=== PATIENT | female | born 1960 | race Caucasian/White ===

== ENCOUNTER → 2017-08-11 12:22 | Outpatient (CLI) | payer OTHER, SELFPAY ==
--- NOTE | 2017-08-11 12:25 | HPBD_ITS ---
STUDY: DUAL ENERGY X-RAY ABSORPTIOMETRY / DXA REASON FOR EXAM: Female, 57 years old. The patient is postmenopausal. Loss of height. Use of steroid inhaler. TECHNIQUE: Bone Mineral Density (BMD) measurements of lumbar spine and bilateral hips were obtained. COMPARISON: None. FINDINGS: Lumbar Spine (L1-L4): g/cm2 (0.856) / T-score (-2.6) / Z-score (-1.5) Findings are suggestive of osteoporosis with a high fracture risk. Left Femur Total: g/cm2 (0.778) / T-score (-1.8) / Z-score (-1.0) Left Femoral Neck: g/cm2 (0.695) / T-score (-2.5) / Z-score (-1.3) Right Femur Total: g/cm2 (0.769) / T-score (-1.9) / Z-score (-1.1) Right Femoral Neck: g/cm2 (0.736) / T-score (-2.2) / Z-score (-1.0) HPBD/Dexa Bone Density Study (HP) IMPRESSION: The patient is considered osteoporotic as outlined below according to World Mehdi Organization (WHO) criteria with a high fracture risk. Reference Information: The T-score is the number of standard deviations above or below the standard which is normal for young adults at their peak bone mineral density. The World Health Organization (WHO) interprets the T-scores as follows: Above -1 Normal bone density Between -1 and -2.5 Osteopenia Equal to / or below -2.5 Osteoporosis As a practical clinical guideline, osteopenia may be graded as follows: Mild -1 through -1.5 Moderate -1.6 through -2.0 Severe -2.1 through -2.4 The Z-score is the number of standard deviations above or below age-matched controls. A Z-score of less than -1.5 would be considered abnormal. References: 1. NIH Osteoporosis and Related Bone Diseases http://www.osteo.org 2. International Society for Clinical Densitometry http://www.iscd.org 3. National Osteoporosis Foundation http://www.nof.org Electronically Signed: Jax Allen MD at 13:50 EST Tel [phone], Service support ,
--- NOTE | 2017-08-11 12:25 | HPBI_ITS ---
MAMMOGRAPHY - BILATERAL SCREENING REASON FOR EXAM: Female, 57 years old. Routine annual screening examination. PERTINENT HISTORY: Non-contributory. TECHNIQUE: Digital bilateral breast natacha (3D mammographic acquisition) in the CC and MLO projections. 2-D mediolateral oblique (MLO) and craniocaudad (CC) views of both breasts were obtained. CAD: Full Field Digital Mammography with Computer Added Detection was performed. COMPARISON: Comparison is made with prior occipital examination dated April 13, 2014. FINDINGS: Breast Composition: The breasts are heterogeneously dense, which may obscure small masses. There are no dominant masses or suspicious calcifications. No other significant abnormalities are identified. There has been no significant change since the prior study. HPBI/SCREENING MAMM (CAD), BILAT IMPRESSION: Stable bilateral screening mammogram. Yearly follow-up mammogram recommended. (A) ASSESSMENT CATEGORY: BIRADS Category 1: Negative. A letter regarding these results will be sent to the patient by the facility within 30 days. Approximately 10% of breast cancers are not detected by mammography. A normal mammogram should not delay biopsy of a clinically suspicious abnormality. [id number] Electronically Signed: Jax Allen MD at 10:13 EST Tel [phone], Service support ,
== END ==
PROVIDERS: Family Provider Nurse Practitioner; PCP Nurse Practitioner; Visit Provider Nurse Practitioner
DX: Z12.31 Encounter for screening mammogram for malignant neoplasm of breast (principal); Z78.0 Asymptomatic menopausal state
CPT/HCPCS: 77063; 77067; 77080

== ENCOUNTER → 2017-08-24 16:13 | Outpatient (CLI) | payer OTHER, SELFPAY ==
--- NOTE | 2017-08-24 16:23 | RAD_ITS ---
STUDY: X-RAY CHEST REASON FOR EXAM: Female, 57 years old. Cough TECHNIQUE: PA and lateral views of the chest. COMPARISON: None. FINDINGS: The lungs are clear and expanded. There is no demonstrated pleural abnormality. Normal size heart. Normal mediastinum and nicole. Normal visualized pulmonary arteries. Mild atherosclerosis of the aortic arch noted. Normal visualized thoracic spine. Normal visualized ribs, clavicles, and shoulders. There is no demonstrated abnormality of the visualized soft tissue structures of the upper abdomen. RAD/Chest PA and Lateral IMPRESSION: No acute infiltrate. Mild hyperinflation. Mild atherosclerosis of the aorta noted. Electronically Signed: Ayesha Calderon MD at 17:18 EST Tel , Service support ,
== END ==
PROVIDERS: Family Provider Nurse Practitioner; PCP Nurse Practitioner; Visit Provider Nurse Practitioner
DX: R05 Cough (principal)
CPT/HCPCS: 71046

== ENCOUNTER → 2017-08-31 18:59 | Outpatient (CLI) | payer OTHER, SELFPAY ==
--- NOTE | 2017-08-31 19:08 | CT_ITS ---
STUDY: CTA CHEST REASON FOR EXAM: Female, 57 years old. PE, RIGHT SIDED CHEST PAIN, COUGH X 2 WEEKS RADIATION DOSAGE (If Supplied By Facility): CTDIvol = ( 13.02 ) mGy, DLP = ( 534.80 ) mGycm TECHNIQUE: The examination was performed with the intravenous administration of 75 ml of Isovue 370 contrast material. Post-processing of the angiographic images was performed, with multiplanar reformation and 3D reconstruction. Individualized dose optimization techniques were used for this CT. COMPARISON: None. FINDINGS: Normal enhancement of the main pulmonary artery and right and left pulmonary arteries. Normal enhancement of the bilateral peripheral pulmonary arteries. There is no demonstrated pulmonary embolism. There is atherosclerotic tortuosity of the aortic arch and descending thoracic aorta. There is no demonstrated aortic dissection. Normal heart and pericardium. Normal mediastinum. Normal hilar regions. Normal visualized trachea and bronchi. Groundglass infiltrates noted diffusely throughout the left lung. There is no pneumothorax. Normal pulmonary parenchyma. Normal pleura. Normal chest wall structures. There are degenerative changes of thoracic spine. Normal visualized upper abdomen. CT/CTA Chest W/WO Contrast IMPRESSION: No demonstrated pulmonary embolism or arterial dissection. Left pneumonia. Electronically Signed: Osman Nunez MD at 20:21 EST , Service support ,
== END ==
PROVIDERS: Family Provider Nurse Practitioner; PCP Nurse Practitioner; Visit Provider Nurse Practitioner
DX: R07.9 Chest pain, unspecified (principal)
CPT/HCPCS: 71275; Q9967

== ENCOUNTER 2017-09-01 13:54 | Inpatient (IN) | payer OTHER, SELFPAY ==
[2017-09-01] VITALS (9 sets, daily range): BP systolic 132–151; BP diastolic 67–95; PULSE 77–89; RESP 18–24; TEMP 36.6–36.9; O2SAT 94–96; BMI 34.9; BMI 33.7
--- NOTE | 2017-09-01 15:04 | EKG12_ITS ---
Test Reason : SOB Blood Pressure : / mmHG Vent. Rate : 081 BPM Atrial Rate : 081 BPM P-R Int : 144 ms QRS Dur : 090 ms QT Int : 352 ms P-R-T Axes : 054 048 059 degrees QTc Int : 408 ms Normal sinus rhythm Normal ECG Confirmed by TAY DURAN MD ([id number]), associate entertainment editor TONY HINTON ([id number] on 09/02/2017 2:27:56 PM Referred By: DOMINIC
--- NOTE | 2017-09-01 15:13 | RAD_ITS ---
STUDY: X-RAY CHEST REASON FOR EXAM: Female, 57 years old. Cough. History of COPD. TECHNIQUE: PA and lateral views of the chest. COMPARISON: Comparison is made with prior CT scan of chest dated August 31, 2017. FINDINGS: EKG electrodes are seen. Right middle lobe infiltrate with volume loss. Blunting of the left costophrenic angle. Normal size heart. Normal mediastinum and nicole. Normal visualized pulmonary arteries. There is atherosclerotic calcification of the aortic arch with tortuosity. Normal visualized thoracic spine. Normal visualized ribs, clavicles, and shoulders. There is no demonstrated abnormality of the visualized soft tissue structures of the upper abdomen. RAD/Chest PA and Lateral IMPRESSION: Right middle lobe infiltrate with volume loss of the right middle lobe. Electronically Signed: Jax Allen MD at 15:45 EST Tel [phone], Service support ,
[2017-09-01 15:15] LABS: Absolute Lymphocyte Count 1.21 X10^3/ul (0.83-4.51); Absolute Neutrophil Count 16.2 X10^3/uL (2.0-7.7); Basophil# 0.02 X10^3/uL; Basophil% 0.1 % (0-1); Eosinophil# 0.01 X10^3/uL; Eosinophils% 0.1 % (0-5); Hematocrit 37.1 % (37-47); Hemoglobin 12.8 g/dl (12.0-15.0); Lymphocyte # 1.21 X10^3/ul (4.0); Lymphocyte % 6.5 % (19-41); Mean Corp Hgb Conc 34.5 g/gl (32-36); Mean Corpuscular Hgb 33.8 pg (27.0-32.0); Mean Corpuscular Volume 97.9 fL (81-99); Monocyte# 0.83 X10^3/uL; Monocyte% 4.5 % (0-10); Neutrophil # 16.19 X10^3/uL (2.7-7.7); Neutrophil % 87.1 % (47-70); Platelet Count 456 K/mm3 (150-450); RBC Distribution Width SD 45.2 fl (35.1-43.9); Red Blood Count 3.79 M/mm3 (4.2-5.4); White Blood Count 18.6 K/mm3 (4.4-11.0)
[2017-09-01 15:18] LABS: POSITIVE COUNT NO; POSITIVE DIFFERENTIAL NO; POSITIVE MORPHOLOGY NO
[2017-09-01 15:20] LABS: Anion Gap 10 (5-15); BUN 9 mg/dL (7-18); BUN/Creat Ratio 12.8 RATIO (10-20); Calcium,Total 8.9 mg/dL (8.5-10.1); Chloride 94 mmol/L (98-107); EST Glomerular Filtration Rate 91 mL/min (>60); Est Glom Filt Rate - Afr Amer 110 mL/min (>60); Estimated Creatinine Clearance 69.29 ml/min; Glucose 119 mg/dL (74-106); Potassium 4.3 mmol/L (3.5-5.1); Sodium Level 130 mmol/L (136-145)
--- NOTE | 2017-09-01 16:08 | PCM.HP.STD ---
Problem List (1) COPD (chronic obstructive pulmonary disease) Status: Chronic Qualifiers: Emphysema type: unspecified (2) Acute bronchitis with COPD Status: Acute (3) Pneumonia Status: Acute Qualifiers: Pneumonia type: due to unspecified organism Laterality: bilateral Lung location: unspecified part of lung Qualified Code(s): J18.9 - Pneumonia, unspecified organism (4) Tobacco use Status: Chronic (5) HTN (hypertension) Status: Chronic Qualifiers: Hypertension type: essential hypertension Qualified Code(s): I10 - Essential (primary) hypertension (6) Hypothyroidism Status: Chronic Qualifiers: Hypothyroidism type: unspecified Qualified Code(s): E03.9 - Hypothyroidism, unspecified (7) Obesity (BMI 30.0-34.9) Status: Chronic (8) Thyroglossal duct cyst Status: Chronic History of Present Illness Date of Admission: 09/01/17 Chief Complaint: Dyspnea, wheezing, cough The patient is a 57 y/o F w/ PMHx: Chronic COPD, Tobacco use 1/2-3/4 ppd since age 16, notes she quit 08/22/17, HTN, Hypothyroidism w/ Hx Thyroglossal duct cyst s/p resection, Obesity who presents to the [facility] ED on 09/01/17 with history of mildly productive cough, ongoing w/ severe musculoskeletal associated chest and back discomfort, worse with coughing with PCP evaluation with initially ~ 2 weeks prior normal appearing CXR; however, she had ongoing sxs prompting CTPA which was notable for L sided PNA but despite levaquin 10 day course as well as steroid taper she noted ongoing sxs with referral per her PCP to the ED. She notes initially with onset of her illness she had vague nausea and transient loose stool but this resolved. She denies any current fevers or chills. In the ED work-up included T 97.9, BP 132/77, RR 18, 94% on RA, CBC w/ WBC 18.6, Hgb 12.8, Plts 456 with L shift, BMP w/ Na 130, Chl 94, glucose 119, CXR with no RML infiltrate. In the ED patient administered azithromycin, rocephin, NS. Past Medical History Past Medical History (Chronic Problems): Chronic Problems (This Medical Record has been edited. Action required.) COPD (chronic obstructive pulmonary disease) (Chronic) Tobacco use (Chronic) HTN (hypertension) (Chronic) Hypothyroidism (Chronic) Obesity (BMI 30.0-34.9) (Chronic) Thyroglossal duct cyst (Chronic) Allergies amlodipine Allergy (Verified 09/01/17 13:59) Swelling hydrochlorothiazide Allergy (Verified 09/01/17 13:59) Other lisinopril Allergy (Verified 09/01/17 13:59) Other Penicillins Allergy (Verified 09/01/17 13:59) Rash Home Medications: Ambulatory Orders Medication Instructions Recorded Albuterol Aerosols [Ventolin 2.5 mg INHALATION Q4HWA.RT 09/01/17 Aerosols] Albuterol IH (ProAir) [Proair Hfa 2 puff INHALATION Q4H PRN PRN 09/01/17 (SP)Vent Pts] Benzonatate 200 mg PO TID 09/01/17 Budesonide/Formoterol 160/4.5 2 puff INHALATION BID 09/01/17 [Symbicort 160/4.5 Mcg Inhaler (SP)] BusPIRone [Buspar] 10 mg PO BID 09/01/17 Clonidine HCl [Catapres] 0.1 mg PO BID 09/01/17 Diltiazem HCl [Cartia Xt] 180 mg PO DAILY 09/01/17 Fish Oil/Dha/Epa [Fish Oil 1,200 1 each PO DAILY 09/01/17 mg Fish Oil] Guaifenesin [Mucinex] 600 mg PO BID 09/01/17 Ipratropium [place] 1 spray NS PRN PRN 09/01/17 Levothyroxine [Synthroid] 125 mcg PO DAILY 09/01/17 Losartan Potassium [Cozaar] 100 mg PO DAILY 09/01/17 Prednisone 20 mg PO DAILY 09/01/17 Venlafaxine HCl [Effexor Xr] 75 mg PO DAILY 09/01/17 Surgical History: - - , Hiatal hernia repair, thyroglossal duct resection. 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 Tobacco Use: Cigarettes Alcohol: Occasional Drugs: None - *Family History Maternal History Items: - - Mother with PMHx HTN, CVA, PAD. Paternal History Items: - - Father with PMHx DM, Esophageal CA. Review of Systems Constitutional: Reports: Anorexia, Malaise, Weakness, Fatigue. Denies: Chills, Fever, Weight Change HEENT: Denies: Head Aches, Sinus Congestion, Sinus Drainage Cardiovascular: Reports: Chest Pain. Denies: Palpitations Respiratory: Reports: Cough, Shortness of Breath, Shortness of breath at rest, Shortness of breath upon exertion, Sputum production, Wheezing Gastrointestinal: Reports: Diarrhea, Nausea. Denies: Abdominal Pain, Vomiting Genitourinary: Denies: Dysuria Musculoskeletal: Reports: Back Pain. Denies: Joint Pain, Joint Tenderness Skin: Denies: Rash, Wounds Neurological: Denies: Numbness, Tingling, Focal weakness Psychiatric: Denies: Anxiety, Depression, Homicidal Ideations, Suicidal Ideations Hematologic/ Lymphatic: Denies: Easy Bruising, Easy Bleeding VTE Information - Inpt Only VTE Present on Admission: No VTE Mechan Device Prophylaxis: SCD's VTE Pharm Prophylaxis ordered?: Yes Patient Problems: Active and Suspected Problems (This Medical Record has been edited. Action required.) Acute bronchitis with COPD (Acute) Pneumonia (Acute) Subjective: Seated upright in the ED bed, fatigued appearance, harsh voice. Objective: Physical Examination: General: awake, alert, oriented x 3 and cooperative, seated upright in the ED bed in no apparent distress, fatigued, onset back pain with movement. Skin: normal color, turgor, no icterus, cyanosis. HEENT: AT/NC, EOMI, PERRLA, dry MM, no carotid bruits or JVD noted. Lungs: Diminished BS throughout, > bases, mildly coarse BL bases, occasional soft end expiratory wheezing, poor effort secondary to MS pain. Heart: Regular rate and rhythm; no gallop, rub audible. Abdomen: soft, obese, NTTP, ND, normal BS, no HSM. Extremities: no cyanosis, clubbing, or edema. Neurological: patient awake, alert, oriented x 3; cognitive function intact; pupils equally reactive to light and accomodation; cranial nerves II-XII grossly normal, moving all 4 extremities, no focal deficits, strength moderately to severely globally decreased secondary to acute presentation. Psychiatric: affect appears fatigued, no acute evidence of depressive or anxiety feelings. - Physical Exam Vital Signs Temp Pulse Resp BP Pulse Ox 97.9 F 80 24 H 135/95 H 96 09/01/17 13:55 09/01/17 15:09 09/01/17 15:09 09/01/17 15:09 09/01/17 15:09 Oxygen Flow Rate 1 Oxygen Delivery Method Room Air Weight: 191 lb Body Mass Index (BMI) 34.9 Laboratory Tests Past 24 Hrs 09/01/17 09/01/17 14:02 14:02 WBC 18.6 H RBC 3.79 L Hgb 12.8 Hct 37.1 MCV 97.9 MCH 33.8 H MCHC 34.5 RDW 13.0 RDW Differential 45.2 H Plt Count 456 H MPV 8.0 Immature Gran % (Auto) 1.700 H Neut % (Auto) 87.1 H Lymph % (Auto) 6.5 L Reeves % (Auto) 4.5 Eos % (Auto) 0.1 Baso % (Auto) 0.1 Absolute Neuts (auto) 16.2 H Absolute Lymphs (auto) 1.21 Total Counted Not Reportable Sodium 130 L Potassium 4.3 Chloride 94 L Carbon Dioxide 26.0 Anion Gap 10 BUN 9 Creatinine 0.70 Estim Creat Clear Calc 69.29 Est GFR (MDRD) Af Amer 110 Est GFR (MDRD) Non-Af 91 BUN/Creatinine Ratio 12.8 Glucose 119 H Calcium 8.9 Assessment/Plan Active and Suspected Problems (This Medical Record has been edited. Action required.) Acute bronchitis with COPD (Acute) Pneumonia (Acute) The patient is a 57 y/o F w/ PMHx: Chronic COPD, Tobacco use, HTN, Hypothyroidism w/ Hx Thyroglossal duct cyst s/p resection, Obesity who presents to the [facility] ED on 09/01/17 with history of recent PNA, COPD exacerbation treatment with ongoing sxs and worsened CXR. (1) Acute on chronic COPD exacerbation with Pneumonia, Failed Outpatient therapy: Recent CTPA with L sided PNA and now current ED CXR w/ chronic changes and RML infiltrates, CBC on admission w/ WBC 18.6 with L shift but recent steroid taper, afebrile. Will admit to MS, maintain on oxygen with wean as tolerated to room air, continue ATC duonebs, PRN albuterol, IV azithromycin and rocephin, IV methylprednisolone with prednisone transition once appropriate, HOB, IS parameters with requested urine antigens, respiratory panel and sputum cultures. Will need oxygenation testing once appropriate for discharge. (2) Hypertension: Continue home regimen including diltiazem, clonidine, losartan, PRN hydralazine. (3) Hypothyroidism: Continue home synthroid regimen, s/p thyroglossal duct resection. (4) Tobacco Abuse: Encouraged cessation, inpatient consultation per RT, NR if desired. (5) Anxiety and Depression: Maintain on home regimen buspar and effexor. (6) GERD: Famotidine. (7) DVT Prophylaxis: SCDs, lovenox. Code Visit Inpatient E&M: 88281 Init Hosp L3
--- NOTE | 2017-09-01 16:11 | HP.PCM_ITS ---
Problem List (1) COPD (chronic obstructive pulmonary disease) Status: Chronic Qualifiers: Emphysema type: unspecified (2) Acute bronchitis with COPD Status: Acute (3) Pneumonia Status: Acute Qualifiers: Pneumonia type: due to unspecified organism Laterality: bilateral Lung location: unspecified part of lung Qualified Code(s): J18.9 - Pneumonia, unspecified organism (4) Tobacco use Status: Chronic (5) HTN (hypertension) Status: Chronic Qualifiers: Hypertension type: essential hypertension Qualified Code(s): I10 - Essential (primary) hypertension (6) Hypothyroidism Status: Chronic Qualifiers: Hypothyroidism type: unspecified Qualified Code(s): E03.9 - Hypothyroidism , unspecified (7) Obesity (BMI 30.0-34.9) Status: Chronic (8) Thyroglossal duct cyst Status: Chronic History of Present Illness Date of Admission: 09/01/17 Chief Complaint: Dyspnea, wheezing, cough The patient is a 57 y/o F w/ PMHx: Chronic COPD, Tobacco use 1/2-3/4 ppd since age 16, notes she quit 08/22/17, HTN, Hypothyroidism w/ Hx Thyroglossal duct cyst s/p resection, Obesity who presents to the [facility] ED on 09/01/17 with history of mildly productive cough, ongoing w/ severe musculoskeletal associated chest and back discomfort, worse with coughing with PCP evaluation with initially ~ 2 weeks prior normal appearing CXR; however, she had ongoing sxs prompting CTPA which was notable for L sided PNA but despite levaquin 10 day course as well as steroid taper she noted ongoing sxs with referral per her PCP to the ED. She notes initially with onset of her illness she had vague nausea and transient loose stool but this resolved. She denies any current fevers or chills. In the ED work-up included T 97.9, BP 132/77, RR 18, 94% on RA, CBC w/ WBC 18.6, Hgb 12.8, Plts 456 with L shift, BMP w/ Na 130, Chl 94, glucose 119, CXR with no RML infiltrate. In the ED patient administered azithromycin, rocephin, NS. Past Medical History Past Medical History (Chronic Problems): Chronic Problems (This Medical Record has been edited. Action required.) COPD (chronic obstructive pulmonary disease) (Chronic) Tobacco use (Chronic) HTN (hypertension) (Chronic) Hypothyroidism (Chronic) Obesity (BMI 30.0-34.9) (Chronic) Thyroglossal duct cyst (Chronic) Allergies amlodipine Allergy (Verified 09/01/17 13:59) Swelling hydrochlorothiazide Allergy (Verified 09/01/17 13:59) Other lisinopril Allergy (Verified 09/01/17 13:59) Other Penicillins Allergy (Verified 09/01/17 13:59) Rash Home Medications: Ambulatory Orders Medication Instructions Recorded Albuterol Aerosols [Ventolin 2.5 mg INHALATION Q4HWA.RT 09/01/17 Aerosols] Albuterol IH (ProAir) [Proair Hfa 2 puff INHALATION Q4H PRN PRN 09/01/17 (SP)Vent Pts] Benzonatate 200 mg PO TID 09/01/17 Budesonide/Formoterol 160/4.5 2 puff INHALATION BID 09/01/17 [Symbicort 160/4.5 Mcg Inhaler (SP)] BusPIRone [Buspar] 10 mg PO BID 09/01/17 Clonidine HCl [Catapres] 0.1 mg PO BID 09/01/17 Diltiazem HCl [Cartia Xt] 180 mg PO DAILY 09/01/17 Fish Oil/Dha/Epa [Fish Oil 1,200 1 each PO DAILY 09/01/17 mg Fish Oil] Guaifenesin [Mucinex] 600 mg PO BID 09/01/17 Ipratropium [place] 1 spray NS PRN PRN 09/01/17 Levothyroxine [Synthroid] 125 mcg PO DAILY 09/01/17 Losartan Potassium [Cozaar] 100 mg PO DAILY 09/01/17 Prednisone 20 mg PO DAILY 09/01/17 Venlafaxine HCl [Effexor Xr] 75 mg PO DAILY 09/01/17 Surgical History: - - , Hiatal hernia repair, thyroglossal duct resection. 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 Tobacco Use: Cigarettes Alcohol: Occasional Drugs: None - *Family History Maternal History Items: - - Mother with PMHx HTN, CVA, PAD. Paternal History Items: - - Father with PMHx DM, Esophageal CA. Review of Systems Constitutional: Reports: Anorexia, Malaise, Weakness, Fatigue. Denies: Chills, Fever, Weight Change HEENT: Denies: Head Aches, Sinus Congestion, Sinus Drainage Cardiovascular: Reports: Chest Pain. Denies: Palpitations Respiratory: Reports: Cough, Shortness of Breath, Shortness of breath at rest, Shortness of breath upon exertion, Sputum production, Wheezing Gastrointestinal: Reports: Diarrhea, Nausea. Denies: Abdominal Pain, Vomiting Genitourinary: Denies: Dysuria Musculoskeletal: Reports: Back Pain. Denies: Joint Pain, Joint Tenderness Skin: Denies: Rash, Wounds Neurological: Denies: Numbness, Tingling, Focal weakness Psychiatric: Denies: Anxiety, Depression, Homicidal Ideations, Suicidal Ideations Hematologic/ Lymphatic: Denies: Easy Bruising, Easy Bleeding VTE Information - Inpt Only VTE Present on Admission: No VTE Mechan Device Prophylaxis: SCD's VTE Pharm Prophylaxis ordered?: Yes Patient Problems: Active and Suspected Problems (This Medical Record has been edited. Action required.) Acute bronchitis with COPD (Acute) Pneumonia (Acute) Subjective: Seated upright in the ED bed, fatigued appearance, harsh voice. Objective: Physical Examination: General: awake, alert, oriented x 3 and cooperative, seated upright in the ED bed in no apparent distress, fatigued, onset back pain with movement. Skin: normal color, turgor, no icterus, cyanosis. HEENT: AT/NC, EOMI, PERRLA, dry MM, no carotid bruits or JVD noted. Lungs: Diminished BS throughout, > bases, mildly coarse BL bases, occasional soft end expiratory wheezing, poor effort secondary to MS pain. Heart: Regular rate and rhythm; no gallop, rub audible. Abdomen: soft, obese, NTTP, ND, normal BS, no HSM. Extremities: no cyanosis, clubbing, or edema. Neurological: patient awake, alert, oriented x 3; cognitive function intact; pupils equally reactive to light and accomodation; cranial nerves II-XII grossly normal, moving all 4 extremities, no focal deficits, strength moderately to severely globally decreased secondary to acute presentation. Psychiatric: affect appears fatigued, no acute evidence of depressive or anxiety feelings. - Physical Exam Vital Signs Temp Pulse Resp BP Pulse Ox 97.9 F 80 24 H 135/95 H 96 09/01/17 13:55 09/01/17 15:09 09/01/17 15:09 09/01/17 15:09 09/01/17 15:09 Oxygen Flow Rate 1 Oxygen Delivery Method Room Air Weight: 191 lb Body Mass Index (BMI) 34.9 Laboratory Tests Past 24 Hrs 09/01/17 09/01/17 14:02 14:02 WBC 18.6 H RBC 3.79 L Hgb 12.8 Hct 37.1 MCV 97.9 MCH 33.8 H MCHC 34.5 RDW 13.0 RDW Differential 45.2 H Plt Count 456 H MPV 8.0 Immature Gran % (Auto) 1.700 H Neut % (Auto) 87.1 H Lymph % (Auto) 6.5 L [place] % (Auto) 4.5 Eos % (Auto) 0.1 Baso % (Auto) 0.1 Absolute Neuts (auto) 16.2 H Absolute Lymphs (auto) 1.21 Total Counted Not Reportable Sodium 130 L Potassium 4.3 Chloride 94 L Carbon Dioxide 26.0 Anion Gap 10 BUN 9 Creatinine 0.70 Estim Creat Clear Calc 69.29 Est GFR (MDRD) Af Amer 110 Est GFR (MDRD) Non-Af 91 BUN/Creatinine Ratio 12.8 Glucose 119 H Calcium 8.9 Assessment/Plan Active and Suspected Problems (This Medical Record has been edited. Action required.) Acute bronchitis with COPD (Acute) Pneumonia (Acute) The patient is a 57 y/o F w/ PMHx: Chronic COPD, Tobacco use, HTN, Hypothyroidism w/ Hx Thyroglossal duct cyst s/p resection, Obesity who presents to the [facility] ED on 09/01/17 with history of recent PNA, COPD exacerbation treatment with ongoing sxs and worsened CXR. (1) Acute on chronic COPD exacerbation with Pneumonia, Failed Outpatient therapy : Recent CTPA with L sided PNA and now current ED CXR w/ chronic changes and RML infiltrates, CBC on admission w/ WBC 18.6 with L shift but recent steroid taper, afebrile. Will admit to MS, maintain on oxygen with wean as tolerated to room air, continue ATC duonebs, PRN albuterol, IV azithromycin and rocephin, IV methylprednisolone with prednisone transition once appropriate, HOB, IS parameters with requested urine antigens, respiratory panel and sputum cultures. Will need oxygenation testing once appropriate for discharge. (2) Hypertension: Continue home regimen including diltiazem, clonidine, losartan , PRN hydralazine. (3) Hypothyroidism: Continue home synthroid regimen, s/p thyroglossal duct resection. (4) Tobacco Abuse: Encouraged cessation, inpatient consultation per RT, NR if desired. (5) Anxiety and Depression: Maintain on home regimen buspar and effexor. (6) GERD: Famotidine. (7) DVT Prophylaxis: SCDs, lovenox. Code Visit Inpatient E&M: 77306 Init Hosp L3
--- NOTE | 2017-09-01 16:13 | ED.VISSUMM ---
- ER Visit Summary Date of Service: 09/01/17 Chief Complaint: Shortness of breath History of Present Illness: The patient is a 57 F presents with shortness of breath. She has had a cough and shortness of breath for about 2 weeks. She had fever and diarrhea for 3 days with the initial illness but this has resolved and she has had no recent diarrhea or fever. She reports nausea but no actual emesis. She was seen by her primary care rider when the illness initially began. She had a normal chest x-ray but was treated with Levaquin and a steroid taper. She states she initially seemed to be improving but then her symptoms again began worsening and she developed sharp right-sided chest pain and lower back pain which is worse with coughing. A CTA of the chest was obtained yesterday which showed a groundglass infiltrates on the left. She was seen in the office today and was complaining of significant pain and nausea so was sent to the ER for evaluation. Physical Examination: Afebrile vitals are normal Patient appears to be in pain Heart is regular rate and rhythm Normal respiratory rate no retractions or increased work of breathing she does have some scattered expiratory wheezes Abdomen soft Test Results: EKG shows normal sinus rhythm at a rate of 81. Laboratory studies notable for white blood cell count of 18.6 and platelets of 456. Chest x-ray shows right middle lobe infiltrate. Emergency Department Course and Treatment: Chest x-ray shows interval development of right-sided infiltrate despite antibiotics. The patient also has a significant leukocytosis some of which may be attributable to steroids. Although the patient is not hypoxic tachycardic or febrile given worsening symptoms and new infiltrate on chest x-ray despite antibiotic therapy she has failed outpatient treatment and I believe would benefit from hospitalization with IV antibiotics. Treated with IV Rocephin and azithromycin discussed with hospitalist and admitted. Treatment Plan: [] Disposition: Admit Impression: Community acquired pneumonia, failed outpatient treatment This note was generated with [employer] dictation software. It may contain incorrect words, spelling, and punctuation that were not noted in review of the chart prior to signing ED Disposition - Plan for ED Patient: Chief Complaint: General Illness Referrals: Sherri Ward [Primary Care Provider] -
[2017-09-01] MEDS: HYDROcodone Bitartrate/Apap 5/325 Tablet PO (16:16)
[2017-09-01] MEDS: 0.9% Normal Saline 1,000 ML 1000 ML IV (16:16)
--- NOTE | 2017-09-01 16:58 | NURSING ---
SECOND ATTEMPT TO CALL PHARMACY FOR ATB. [facility] CHARGE REPORTS READY FOR PATIENT, THEY WILL START ON FLOOR.
[2017-09-01] MEDS: Ceftriaxone 1 GM/50 mL Premix x1 IV (17:10)
[2017-09-01 18:27] LABS: Magnesium 2.3 mg/dL (1.6-2.6)
[2017-09-01] MEDS: oxyCODONE 5 MG Tablet PO ×2 (18:30→22:31)
[2017-09-01] MEDS: Albuterol 2.5 MG/3 ML VIAL.NEB. INHALATION (20:08)
[2017-09-01] MEDS: cloNIDine HCl 0.1 MG Tablet PO (21:54)
[2017-09-01] MEDS: 0.9% Normal Saline 1,000 ML 125 ML IV (21:54)
[2017-09-01] MEDS: Famotidine 20 MG Tablet PO (21:54)
[2017-09-01] MEDS: guaiFENesin 1,200 MG Tablet 1200 MG PO (21:55)
[2017-09-02] VITALS (10 sets, daily range): BP systolic 134–163; BP diastolic 72–91; PULSE 68–108; RESP 14–18; TEMP 36.3–36.9; O2SAT 92–96
[2017-09-02] MEDS: Ipratropium/Albuterol Sulfate 3 ML AMPUL.NEB INHALATION ×4 (03:35→14:57)
[2017-09-02 05:37] LABS: Absolute Lymphocyte Count 0.91 X10^3/ul (0.83-4.51); Absolute Neutrophil Count 13.3 X10^3/uL (2.0-7.7); Basophil# 0.01 X10^3/uL; Basophil% 0.1 % (0-1); Eosinophil# 0.01 X10^3/uL; Eosinophils% 0.1 % (0-5); Hematocrit 36.1 % (37-47); Hemoglobin 12.5 g/dl (12.0-15.0); Lymphocyte # 0.91 X10^3/ul (4.0); Lymphocyte % 6.2 % (19-41); Mean Corp Hgb Conc 34.6 g/gl (32-36); Mean Corpuscular Hgb 34.2 pg (27.0-32.0); Mean Corpuscular Volume 98.9 fL (81-99); Mean Platelet Vol. 7.8 fl (6.2-12.0); Monocyte# 0.33 X10^3/uL; Monocyte% 2.2 % (0-10); Neutrophil # 13.25 X10^3/uL (2.7-7.7); Neutrophil % 90.3 % (47-70); Platelet Count 436 K/mm3 (150-450); RBC Distribution Width CV 12.9 % (11.6-14.6); RBC Distribution Width SD 45.6 fl (35.1-43.9); Red Blood Count 3.65 M/mm3 (4.2-5.4); White Blood Count 14.7 K/mm3 (4.4-11.0)
[2017-09-02] MEDS: 0.9% Normal Saline 1,000 ML 125 ML IV ×2 (05:55→16:25)
[2017-09-02] MEDS: Levothyroxine 125 MCG Tablet PO (05:55)
[2017-09-02 05:57] LABS: POSITIVE COUNT NO; POSITIVE DIFFERENTIAL NO; POSITIVE MORPHOLOGY NO
[2017-09-02 06:12] LABS: Anion Gap 9 (5-15); BUN 9 mg/dL (7-18); Calcium,Total 8.7 mg/dL (8.5-10.1); Chloride 98 mmol/L (98-107); EST Glomerular Filtration Rate 109 mL/min (>60); Est Glom Filt Rate - Afr Amer 131 mL/min (>60); Estimated Creatinine Clearance 80.83 ml/min; Glucose 144 mg/dL (74-106); Potassium 4.5 mmol/L (3.5-5.1); Sodium Level 133 mmol/L (136-145)
[2017-09-02] MEDS: oxyCODONE 5 MG Tablet PO ×2 (06:54→17:47)
--- NOTE | 2017-09-02 07:13 | PN_ITS ---
Patient Problems: Active and Suspected Problems (This Medical Record has been edited. Action required.) Acute bronchitis with COPD (Acute) Pneumonia (Acute) Subjective: Patient with no acute events overnight per self and per nursing report. Patient states still ongoing discomfort in the back primarily lower and primarily with increased movement attempts or increased coughing although this is improved since initial presentation. Reviewed results with including positive RSV B in addition to her PNA. She notes breathing has improved and wheezing has markedly improved also. Patient denies fevers, chills, nausea, emesis, abdominal pain. Objective: Physical Examination: General: awake, alert, oriented x 3 and cooperative, seated upright in the bed in no apparent distress, improved appearance, NAD. Skin: normal color, turgor, no icterus, cyanosis. HEENT: AT/NC, EOMI, PERRLA, improved MMM> Lungs: Improved effort and airmovement, sill diminished BS, > bases, less coarse bases, no current wheezing. Heart: Regular rate and rhythm; no gallop, rub audible. Abdomen: soft, obese, NTTP, ND, normal BS. Extremities: no cyanosis, clubbing, or edema, BL lumbar paraspinous muscular pain with palpation. Neurological: patient awake, alert, oriented x 3; cognitive function intact; pupils equally reactive to light and accomodation; cranial nerves II-XII grossly normal, moving all 4 extremities, no focal deficits, strength improved, sill moderately to severely globally decreased secondary to acute presentation and back pain. Psychiatric: affect appears improved, no acute evidence of depressive or anxiety feelings. Vitals/I&O's: Vital Signs Temp Pulse Resp BP Pulse Ox 97.8 F 75 18 150/78 H 92 09/02/17 03:38 09/02/17 03:38 09/02/17 03:38 09/02/17 03:38 09/02/17 03:38 Oxygen Delivery Method Room Air Weight: 184 lb 11.958 oz Body Mass Index (BMI) 33.7 Intake and Output for Last 24 Hours 08/31/17 09/01/17 09/02/17 23:59 23:59 23:59 Intake Total 1558 / 1558 Balance 1558 / 1558 Microbiology Past 72 Hours 09/01/17 20:15 Mucosa - Nose Respiratory Panel (PCR) - Preliminary RSV B 09/01/17 19:35 Urine, Clean Catch Streptococcus pneumoniae Antigen (M - Final 09/01/17 19:35 Urine, Clean Catch Legionella Antigen - Final Laboratory Results 09/02/17 05:10: Sodium 133 L, Potassium 4.5, Chloride 98, Carbon Dioxide 26.0, Anion Gap 9, BUN 9, Creatinine 0.60, Estim Creat Clear Calc 80.83, Est GFR (MDRD ) Af Amer 131, Est GFR (MDRD) Non-Af 109, BUN/Creatinine Ratio 15.0, Glucose 144 H, Calcium 8.7 09/02/17 05:10: WBC 14.7 H, RBC 3.65 L, Hgb 12.5, Hct 36.1 L, MCV 98.9, MCH 34.2 H, MCHC 34.6, RDW 12.9, RDW Differential 45.6 H, Plt Count 436, MPV 7.8, Immature Gran % (Auto) 1.100 H, Neut % (Auto) 90.3 H, Lymph % (Auto) 6.2 L, Faulkner % (Auto) 2.2, Eos % (Auto) 0.1, Baso % (Auto) 0.1, Absolute Neuts (auto) 13.3 H, Absolute Lymphs (auto) 0.91, Total Counted Not Reportable Current Medications Acetaminophen (Tylenol) 650 mg PO Q6H PRN PRN PRN Reason: Mild Pain (scale 0-3)/T>100.7 Al Hydroxide/Mg Hydroxide (Mylanta Ii) 30 ml PO Q6H PRN PRN PRN Reason: Gastric burning Albuterol Sulfate (Ventolin Aerosols) 2.5 mg INHALATION Q2H PRN PRN PRN Reason: SHORTNESS OF BREATH Last Admin: 09/01/17 20:08 Dose: 2.5 mg Albuterol/Ipratropium (Duoneb) 3 ml INHALATION Q4H.RT [facility] Last Admin: 09/02/17 03:35 Dose: 3 ml Buspirone HCl (Buspar) 10 mg PO DAILY@2200 [facility] Last Admin: 09/01/17 21:58 Dose: 10 mg Clonidine (Catapres) 0.1 mg PO BID [facility] Last Admin: 09/01/17 21:54 Dose: 0.1 mg Diltiazem HCl (Cardizem Cd) 180 mg PO DAILY [facility] Docusate Sodium (Colace) 200 mg PO BID PRN PRN PRN Reason: Constipation Enoxaparin Sodium (Lovenox) 40 mg SC DAILY@1000 [facility] Famotidine (Pepcid) 20 mg PO BID [facility] Last Admin: 09/01/17 21:54 Dose: 20 mg Guaifenesin (Mucinex) 1,200 mg PO BID [facility] Last Admin: 09/01/17 21:55 Dose: 1,200 mg Hydralazine HCl (Apresoline) 10 mg IV Q4H PRN PRN PRN Reason: SBP > 160 Sodium Chloride () 1,000 mls @ 125 mls/hr IV .Q8H [facility] Last Admin: 09/02/17 05:55 Dose: 125 mls/hr Azithromycin 500 mg/ Dextrose 255 mls @ 250 mls/hr IV Q24 [facility] Stop: 09/04/17 11:02 Ceftriaxone Sodium (Rocephin) 1 gm in 50 mls @ 100 mls/hr IV Q24H [facility] Levothyroxine Sodium (Synthroid) 125 mcg PO DAILY@0600 [facility] Last Admin: 09/02/17 05:55 Dose: 125 mcg Losartan Potassium (Cozaar) 100 mg PO DAILY [facility] Magnesium Hydroxide (Milk Of Magnesia) 30 ml PO DAILY PRN PRN PRN Reason: Constipation Methylprednisolone (Solu-Medrol) 40 mg IV Q8 [facility] Last Admin: 09/02/17 05:55 Dose: 40 mg Morphine Sulfate (Morphine) 2 - 4 mg IV Q3H PRN PRN PRN Reason: Severe Pain (pain scale 6-10) Morphine Sulfate (Morphine) 1 - 2 mg IV Q4H PRN PRN PRN Reason: Moderate Pain (pain scale 4-5) Nutritional Formula (Lactose Free) (Ensure Enlive) 120 ml PO 4X/DAY [facility] Last Admin: 09/01/17 21:54 Dose: 120 ml Ondansetron HCl (Zofran) 4 mg IV Q8H PRN PRN PRN Reason: NAUSEA Oxycodone HCl (Oxyir) 5 mg PO Q4H PRN PRN PRN Reason: Moderate Pain (pain scale 4-5) Last Admin: 09/02/17 06:54 Dose: 5 mg Promethazine HCl (Phenergan (Ll)) 12.5 mg IV Q6H PRN PRN PRN Reason: NAUSEA/VOMITING Sodium Chloride () 5 - 30 ml IV UD PRN PRN Reason: SALINE FLUSH Temazepam (Restoril) 15 mg PO QHS PRN PRN PRN Reason: insomnia Venlafaxine HCl (Effexor Xr) 75 mg PO DAILY [facility] Assessment/Plan Active and Suspected Problems (This Medical Record has been edited. Action required.) Acute bronchitis with COPD (Acute) Pneumonia (Acute) The patient is a 57 y/o F w/ PMHx: Chronic COPD, Tobacco use, HTN, Hypothyroidism w/ Hx Thyroglossal duct cyst s/p resection, Obesity who presents to the [facility] ED on 09/01/17 with history of recent PNA, COPD exacerbation treatment with ongoing sxs and worsened CXR. (1) Acute on chronic COPD exacerbation with Pneumonia, Failed Outpatient therapy and Acute RSV B Viral Syndrome: Recent CTPA with L sided PNA and now current ED CXR w/ chronic changes and RML infiltrates, CBC on admission w/ WBC 18.6 with L shift but recent steroid taper, afebrile. Will admit to [facility], maintain on oxygen with wean as tolerated to room air, continue ATC duonebs, PRN albuterol, IV azithromycin and rocephin, IV methylprednisolone with prednisone transition once appropriate, likely transition AM, HOB, IS parameters, urine antigens unremarkable, respiratory panel with RSV B, sputum Cx pending. Will need oxygenation testing once appropriate for discharge. CBC w/ WBC 14.7, Hgb 12.5, Plts 436 with L shift, improved. (2) Acute Lumbar Back Strain: Secondary to coughing, muscle strain, immobility with recent illness. PT consulted for stretches, activities, OOB status encouraged, add flexeril, tio toradol x 3 doses, kpad, PRN Pain regimen. (3) Hypertension: Continue home regimen including diltiazem, clonidine, losartan , PRN hydralazine. (4) Hypothyroidism: Continue home synthroid regimen, s/p thyroglossal duct resection. (5) Tobacco Abuse: Encouraged cessation, inpatient consultation per RT, NR if desired. (6) Anxiety and Depression: Maintain on home regimen buspar and effexor. (7) GERD: Famotidine. (8) DVT Prophylaxis: SCDs, lovenox. Code Visit Inpatient E&M: 09126 Subs Hosp L2
[2017-09-02] MEDS: dilTIAZem CD 180 MG Capsule PO (09:02)
[2017-09-02] MEDS: Losartan Potassium 100 MG Tablet PO (09:02)
[2017-09-02] MEDS: Venlafaxine XR 75 MG Capsule PO (09:02)
[2017-09-02] MEDS: Ketorolac 30 MG/ML Syringe IV ×3 (09:02→21:22)
[2017-09-02] MEDS: cloNIDine HCl 0.1 MG Tablet PO ×2 (09:02→21:21)
[2017-09-02] MEDS: Ceftriaxone 1 GM/50 ML BAG IV (09:03)
[2017-09-02] MEDS: Famotidine 20 MG Tablet PO ×2 (09:03→21:22)
[2017-09-02] MEDS: guaiFENesin 1,200 MG Tablet 1200 MG PO ×2 (09:03→21:22)
[2017-09-02] MEDS: Enoxaparin 40 MG/0.4 ML Syringe SC (09:03)
--- NOTE | 2017-09-02 12:33 | CASEMGMT ---
See RN CM Assessment for details. No dc needs identified. Fabiana BSN RN ACM
[2017-09-02] MEDS: Magnesium Hydroxide 30 ML UDC PO (12:48)
[2017-09-02] MEDS: CYCLOBENZAPRINE HCL 5 MG TABLET PO ×2 (14:14→21:22)
--- NOTE | 2017-09-02 15:48 | RAD_ITS ---
STUDY: X-RAY - LUMBAR SPINE REASON FOR EXAM: Female, 57 years old. Low back pain. TECHNIQUE: 3 view(s) of the lumbar spine were obtained. COMPARISON: None FINDINGS: There is straightening of the normal lumbar lordosis. There is no substantial scoliosis. There is a normal alignment of the vertebrae. There is multilevel endplate spondylosis of the lumbar vertebrae. Severe degenerative disc disease at L2-L3. Possible mild loss of height and compression fracture of L5 of indeterminate age. There is atherosclerotic calcification of the abdominal aorta without a demonstrated aneurysm. RAD/Lumbar Spine 2 or 3 Views IMPRESSION: Degenerative changes especially at L2-L3. Possible mild compression fracture of L5 of indeterminate age. Electronically Signed: Robb Campbell MD at 16:28 EST , Service support ,
[2017-09-02] MEDS: 0.9% NaCl Peripheral Flush Adult/Peds IV ×2 (16:25→21:22)
[2017-09-02] MEDS: Mag Hydrox/Al Hydrox/Simeth 30 ML UDC PO (17:47)
[2017-09-03] VITALS (9 sets, daily range): BP systolic 138–157; BP diastolic 69–96; PULSE 73–103; RESP 16–20; TEMP 36.1–36.7; O2SAT 91–97
[2017-09-03] MEDS: 0.9% Normal Saline 1,000 ML 125 ML IV ×3 (00:35→17:13)
[2017-09-03] MEDS: Ipratropium/Albuterol Sulfate 3 ML AMPUL.NEB INHALATION ×5 (03:25→19:29)
[2017-09-03] MEDS: Docusate Sodium 100 MG Capsule 200 MG PO ×2 (03:45→20:53)
[2017-09-03] MEDS: CYCLOBENZAPRINE HCL 5 MG TABLET PO ×3 (06:16→20:52)
[2017-09-03] MEDS: Levothyroxine 125 MCG Tablet PO (06:16)
[2017-09-03] MEDS: Magnesium Hydroxide 30 ML UDC PO (06:16)
[2017-09-03] MEDS: oxyCODONE 5 MG Tablet PO ×2 (06:23→20:28)
--- NOTE | 2017-09-03 06:36 | PCM.PN.HOSP ---
Patient Problems: Active and Suspected Problems (This Medical Record has been edited. Action required.) Acute bronchitis with COPD (Acute) Pneumonia (Acute) Subjective: Patient overnight notes feeling improved since day prior with less coughing, able to ambulate with less dyspnea, less lumbar discomfort day prior, the room with greater ease. Given patient improvement, although still notable wheezing, she is amenable to continued inpatient therapies and treatment with possible discharge to home 09/04/17 if remains improved. Patient denies fevers, chills, nausea, emesis, abdominal pain, chest pain. Objective: Physical Examination: General: awake, alert, oriented x 3 and cooperative, seated upright in bedside chair, NAD, improved appearance, NAD. Skin: normal color, turgor, no icterus, cyanosis. HEENT: AT/NC, EOMI, PERRLA, MMM. Lungs: Improved effort, improved air movement, mildly diminished BS, > bases, less coarse bases, mild expiratory wheezing today. Heart: Regular rate and rhythm; no gallop, rub audible. Abdomen: soft, obese, NTTP, ND, normal BS. Extremities: no cyanosis, clubbing, or edema, lessened, improved discomfort to BL lumbar paraspinous muscular palpation, moving with greater ease. Neurological: patient awake, alert, oriented x 3; cognitive function intact; pupils equally reactive to light and accomodation; cranial nerves II-XII grossly normal, moving all 4 extremities, no focal deficits, strength improved, moderately globally decreased secondary to acute presentation and back pain. Psychiatric: affect appears improved, no acute evidence of depressive or anxiety feelings. Vitals/I&O's: Vital Signs Temp Pulse Resp BP Pulse Ox 97 F L 82 18 138/90 H 97 09/03/17 02:59 09/03/17 03:25 09/03/17 03:25 09/03/17 02:59 09/03/17 03:25 Oxygen Delivery Method Room Air Weight: 184 lb 11.958 oz Body Mass Index (BMI) 33.7 Intake and Output for Last 24 Hours 09/01/17 09/02/17 09/03/17 23:59 23:59 23:59 Intake Total 4230 / 4230 2607 / 2607 Balance 4230 / 4230 2607 / 2607 Microbiology Past 72 Hours 09/01/17 19:00 Sputum, Expectorated/Coughed Gram Stain - Final 09/01/17 19:00 Sputum, Expectorated/Coughed Respiratory Culture - Preliminary Appears to be normal respiratory alnce. Further studies to follow. 09/01/17 20:15 Mucosa - Nose Respiratory Panel (PCR) - Final RSV B 09/01/17 19:35 Urine, Clean Catch Streptococcus pneumoniae Antigen (M - Final 09/01/17 19:35 Urine, Clean Catch Legionella Antigen - Final Current Medications Acetaminophen (Tylenol) 650 mg PO Q6H PRN PRN PRN Reason: Mild Pain (scale 0-3)/T>100.7 Al Hydroxide/Mg Hydroxide (Mylanta Ii) 30 ml PO Q6H PRN PRN PRN Reason: Gastric burning Last Admin: 09/02/17 17:47 Dose: 30 ml Albuterol Sulfate (Ventolin Aerosols) 2.5 mg INHALATION Q2H PRN PRN PRN Reason: SHORTNESS OF BREATH Last Admin: 09/01/17 20:08 Dose: 2.5 mg Albuterol/Ipratropium (Duoneb) 3 ml INHALATION Q4H.RT [facility] Last Admin: 09/03/17 03:25 Dose: 3 ml Buspirone HCl (Buspar) 10 mg PO DAILY@2200 [facility] Last Admin: 09/02/17 21:21 Dose: 10 mg Clonidine (Catapres) 0.1 mg PO BID [facility] Last Admin: 09/02/17 21:21 Dose: 0.1 mg Cyclobenzaprine HCl (Cyclobenzaprine Hcl) 5 mg PO TID [facility] Last Admin: 09/03/17 06:16 Dose: 5 mg Diltiazem HCl (Cardizem Cd) 180 mg PO DAILY [facility] Last Admin: 09/02/17 09:02 Dose: 180 mg Docusate Sodium (Colace) 200 mg PO BID PRN PRN PRN Reason: Constipation Last Admin: 09/03/17 03:45 Dose: 200 mg Enoxaparin Sodium (Lovenox) 40 mg SC DAILY@1000 [facility] Last Admin: 09/02/17 09:03 Dose: 40 mg Famotidine (Pepcid) 20 mg PO BID [facility] Last Admin: 09/02/17 21:22 Dose: 20 mg Guaifenesin (Mucinex) 1,200 mg PO BID [facility] Last Admin: 09/02/17 21:22 Dose: 1,200 mg Hydralazine HCl (Apresoline) 10 mg IV Q4H PRN PRN PRN Reason: SBP > 160 Sodium Chloride () 1,000 mls @ 125 mls/hr IV .Q8H [facility] Last Admin: 09/03/17 00:35 Dose: 125 mls/hr Azithromycin 500 mg/ Dextrose 255 mls @ 250 mls/hr IV Q24 [facility] Stop: 09/04/17 11:02 Last Admin: 09/02/17 10:02 Dose: 250 mls/hr Ceftriaxone Sodium (Rocephin) 1 gm in 50 mls @ 100 mls/hr IV Q24H [facility] Last Admin: 09/02/17 09:03 Dose: 100 mls/hr Levothyroxine Sodium (Synthroid) 125 mcg PO DAILY@0600 [facility] Last Admin: 09/03/17 06:16 Dose: 125 mcg Losartan Potassium (Cozaar) 100 mg PO DAILY [facility] Last Admin: 09/02/17 09:02 Dose: 100 mg Magnesium Hydroxide (Milk Of Magnesia) 30 ml PO DAILY PRN PRN PRN Reason: Constipation Last Admin: 09/03/17 06:16 Dose: 30 ml Methylprednisolone (Solu-Medrol) 40 mg IV Q8 [facility] Last Admin: 09/03/17 06:16 Dose: 40 mg Morphine Sulfate (Morphine) 2 - 4 mg IV Q3H PRN PRN PRN Reason: Severe Pain (pain scale 6-10) Last Admin: 09/02/17 20:32 Dose: 2 mg Morphine Sulfate (Morphine) 1 - 2 mg IV Q4H PRN PRN PRN Reason: Moderate Pain (pain scale 4-5) Nutritional Formula (Lactose Free) (Ensure Enlive) 120 ml PO 4X/DAY [facility] Last Admin: 09/02/17 21:22 Dose: 120 ml Ondansetron HCl (Zofran) 4 mg IV Q8H PRN PRN PRN Reason: NAUSEA Oxycodone HCl (Oxyir) 5 mg PO Q4H PRN PRN PRN Reason: Moderate Pain (pain scale 4-5) Last Admin: 09/03/17 06:23 Dose: 5 mg Promethazine HCl (Phenergan (Ll)) 12.5 mg IV Q6H PRN PRN PRN Reason: NAUSEA/VOMITING Sodium Chloride () 5 - 30 ml IV UD PRN PRN Reason: SALINE FLUSH Last Admin: 09/02/17 21:22 Dose: 10 ml Temazepam (Restoril) 15 mg PO QHS PRN PRN PRN Reason: insomnia Venlafaxine HCl (Effexor Xr) 75 mg PO DAILY [facility] Last Admin: 09/02/17 09:02 Dose: 75 mg Assessment/Plan Active and Suspected Problems (This Medical Record has been edited. Action required.) Acute bronchitis with COPD (Acute) Pneumonia (Acute) The patient is a 57 y/o F w/ PMHx: Chronic COPD, Tobacco use, HTN, Hypothyroidism w/ Hx Thyroglossal duct cyst s/p resection, Obesity who presents to the [facility] ED on 09/01/17 with history of recent PNA, COPD exacerbation treatment with ongoing sxs and worsened CXR. (1) Acute on chronic COPD exacerbation with Pneumonia, Failed Outpatient therapy and Acute RSV B Viral Syndrome: Recent CTPA with L sided PNA and now current ED CXR w/ chronic changes and RML infiltrates, CBC on admission w/ WBC 18.6 with L shift but recent steroid taper, afebrile. Will admit to [facility], maintain on oxygen with wean as tolerated to room air, continue ATC duonebs, PRN albuterol, IV azithromycin and rocephin, IV methylprednisolone with prednisone transition 09/03/17 AM, HOB, IS parameters, urine antigens unremarkable, respiratory panel with RSV B, sputum Cx pending. Will obtain AM oxygenation testing for discharge planning. If continues to improve would plan likely discharge to home 09/04/17. Patient does have nebulizer at home she notes. (2) Acute Lumbar Back Strain: Secondary to coughing, muscle strain, immobility with recent illness. PT consulted for stretches, activities, OOB status encouraged, add flexeril, layton toradol x 3 doses, k-pad, PRN Pain regimen. 09/02/17 notable discomfort lumbar spine region with SLR which would be expected with musculoskeletal etiology; however, to be cautious plain film lumbar spine obtained w/ noted degenerative changes L2-L3, possible mild compression fx L5 indeterminate age. Discussed findings with patient, clinically she is improving, continue therapies and if needed will refer to Orthopedics upon discharge to which she was amenable given improvement. (3) Hypertension: Continue home regimen including diltiazem, clonidine, losartan, PRN hydralazine. (4) Hypothyroidism: Continue home synthroid regimen, s/p thyroglossal duct resection. (5) Tobacco Abuse: Encouraged cessation, inpatient consultation per RT, NR if desired. (6) Anxiety and Depression: Maintain on home regimen buspar and effexor. (7) GERD: Famotidine. (8) DVT Prophylaxis: SCDs, lovenox. Code Visit Inpatient E&M: 96985 Subs Hosp L2
--- NOTE | 2017-09-03 06:40 | PN_ITS ---
Patient Problems: Active and Suspected Problems (This Medical Record has been edited. Action required.) Acute bronchitis with COPD (Acute) Pneumonia (Acute) Subjective: Patient overnight notes feeling improved since day prior with less coughing, able to ambulate with less dyspnea, less lumbar discomfort day prior, the room with greater ease. Given patient improvement, although still notable wheezing, she is amenable to continued inpatient therapies and treatment with possible discharge to home 09/04/17 if remains improved. Patient denies fevers, chills, nausea, emesis, abdominal pain, chest pain. Objective: Physical Examination: General: awake, alert, oriented x 3 and cooperative, seated upright in bedside chair, NAD, improved appearance, NAD. Skin: normal color, turgor, no icterus, cyanosis. HEENT: AT/NC, EOMI, PERRLA, MMM. Lungs: Improved effort, improved air movement, mildly diminished BS, > bases, less coarse bases, mild expiratory wheezing today. Heart: Regular rate and rhythm; no gallop, rub audible. Abdomen: soft, obese, NTTP, ND, normal BS. Extremities: no cyanosis, clubbing, or edema, lessened, improved discomfort to BL lumbar paraspinous muscular palpation, moving with greater ease. Neurological: patient awake, alert, oriented x 3; cognitive function intact; pupils equally reactive to light and accomodation; cranial nerves II-XII grossly normal, moving all 4 extremities, no focal deficits, strength improved, moderately globally decreased secondary to acute presentation and back pain. Psychiatric: affect appears improved, no acute evidence of depressive or anxiety feelings. Vitals/I&O's: Vital Signs Temp Pulse Resp BP Pulse Ox 97 F L 82 18 138/90 H 97 09/03/17 02:59 09/03/17 03:25 09/03/17 03:25 09/03/17 02:59 09/03/17 03:25 Oxygen Delivery Method Room Air Weight: 184 lb 11.958 oz Body Mass Index (BMI) 33.7 Intake and Output for Last 24 Hours 09/01/17 09/02/17 09/03/17 23:59 23:59 23:59 Intake Total 4230 / 4230 2607 / 2607 Balance 4230 / 4230 2607 / 2607 Microbiology Past 72 Hours 09/01/17 19:00 Sputum, Expectorated/Coughed Gram Stain - Final 09/01/17 19:00 Sputum, Expectorated/Coughed Respiratory Culture - Preliminary Appears to be normal respiratory lance. Further studies to follow. 09/01/17 20:15 Mucosa - Nose Respiratory Panel (PCR) - Final RSV B 09/01/17 19:35 Urine, Clean Catch Streptococcus pneumoniae Antigen (M - Final 09/01/17 19:35 Urine, Clean Catch Legionella Antigen - Final Current Medications Acetaminophen (Tylenol) 650 mg PO Q6H PRN PRN PRN Reason: Mild Pain (scale 0-3)/T>100.7 Al Hydroxide/Mg Hydroxide (Mylanta Ii) 30 ml PO Q6H PRN PRN PRN Reason: Gastric burning Last Admin: 09/02/17 17:47 Dose: 30 ml Albuterol Sulfate (Ventolin Aerosols) 2.5 mg INHALATION Q2H PRN PRN PRN Reason: SHORTNESS OF BREATH Last Admin: 09/01/17 20:08 Dose: 2.5 mg Albuterol/Ipratropium (Duoneb) 3 ml INHALATION Q4H.RT [facility] Last Admin: 09/03/17 03:25 Dose: 3 ml Buspirone HCl (Buspar) 10 mg PO DAILY@2200 [facility] Last Admin: 09/02/17 21:21 Dose: 10 mg Clonidine (Catapres) 0.1 mg PO BID [facility] Last Admin: 09/02/17 21:21 Dose: 0.1 mg Cyclobenzaprine HCl (Cyclobenzaprine Hcl) 5 mg PO TID [facility] Last Admin: 09/03/17 06:16 Dose: 5 mg Diltiazem HCl (Cardizem Cd) 180 mg PO DAILY [facility] Last Admin: 09/02/17 09:02 Dose: 180 mg Docusate Sodium (Colace) 200 mg PO BID PRN PRN PRN Reason: Constipation Last Admin: 09/03/17 03:45 Dose: 200 mg Enoxaparin Sodium (Lovenox) 40 mg SC DAILY@1000 [facility] Last Admin: 09/02/17 09:03 Dose: 40 mg Famotidine (Pepcid) 20 mg PO BID [facility] Last Admin: 09/02/17 21:22 Dose: 20 mg Guaifenesin (Mucinex) 1,200 mg PO BID [facility] Last Admin: 09/02/17 21:22 Dose: 1,200 mg Hydralazine HCl (Apresoline) 10 mg IV Q4H PRN PRN PRN Reason: SBP > 160 Sodium Chloride () 1,000 mls @ 125 mls/hr IV .Q8H [facility] Last Admin: 09/03/17 00:35 Dose: 125 mls/hr Azithromycin 500 mg/ Dextrose 255 mls @ 250 mls/hr IV Q24 [facility] Stop: 09/04/17 11:02 Last Admin: 09/02/17 10:02 Dose: 250 mls/hr Ceftriaxone Sodium (Rocephin) 1 gm in 50 mls @ 100 mls/hr IV Q24H [facility] Last Admin: 09/02/17 09:03 Dose: 100 mls/hr Levothyroxine Sodium (Synthroid) 125 mcg PO DAILY@0600 [facility] Last Admin: 09/03/17 06:16 Dose: 125 mcg Losartan Potassium (Cozaar) 100 mg PO DAILY [facility] Last Admin: 09/02/17 09:02 Dose: 100 mg Magnesium Hydroxide (Milk Of Magnesia) 30 ml PO DAILY PRN PRN PRN Reason: Constipation Last Admin: 09/03/17 06:16 Dose: 30 ml Methylprednisolone (Solu-Medrol) 40 mg IV Q8 [facility] Last Admin: 09/03/17 06:16 Dose: 40 mg Morphine Sulfate (Morphine) 2 - 4 mg IV Q3H PRN PRN PRN Reason: Severe Pain (pain scale 6-10) Last Admin: 09/02/17 20:32 Dose: 2 mg Morphine Sulfate (Morphine) 1 - 2 mg IV Q4H PRN PRN PRN Reason: Moderate Pain (pain scale 4-5) Nutritional Formula (Lactose Free) (Ensure Enlive) 120 ml PO 4X/DAY [facility] Last Admin: 09/02/17 21:22 Dose: 120 ml Ondansetron HCl (Zofran) 4 mg IV Q8H PRN PRN PRN Reason: NAUSEA Oxycodone HCl (Oxyir) 5 mg PO Q4H PRN PRN PRN Reason: Moderate Pain (pain scale 4-5) Last Admin: 09/03/17 06:23 Dose: 5 mg Promethazine HCl (Phenergan (Ll)) 12.5 mg IV Q6H PRN PRN PRN Reason: NAUSEA/VOMITING Sodium Chloride () 5 - 30 ml IV UD PRN PRN Reason: SALINE FLUSH Last Admin: 09/02/17 21:22 Dose: 10 ml Temazepam (Restoril) 15 mg PO QHS PRN PRN PRN Reason: insomnia Venlafaxine HCl (Effexor Xr) 75 mg PO DAILY [facility] Last Admin: 09/02/17 09:02 Dose: 75 mg Assessment/Plan Active and Suspected Problems (This Medical Record has been edited. Action required.) Acute bronchitis with COPD (Acute) Pneumonia (Acute) The patient is a 57 y/o F w/ PMHx: Chronic COPD, Tobacco use, HTN, Hypothyroidism w/ Hx Thyroglossal duct cyst s/p resection, Obesity who presents to the [facility] ED on 09/01/17 with history of recent PNA, COPD exacerbation treatment with ongoing sxs and worsened CXR. (1) Acute on chronic COPD exacerbation with Pneumonia, Failed Outpatient therapy and Acute RSV B Viral Syndrome: Recent CTPA with L sided PNA and now current ED CXR w/ chronic changes and RML infiltrates, CBC on admission w/ WBC 18.6 with L shift but recent steroid taper, afebrile. Will admit to [facility], maintain on oxygen with wean as tolerated to room air, continue ATC duonebs, PRN albuterol, IV azithromycin and rocephin, IV methylprednisolone with prednisone transition 09/03/17 AM, HOB, IS parameters, urine antigens unremarkable , respiratory panel with RSV B, sputum Cx pending. Will obtain AM oxygenation testing for discharge planning. If continues to improve would plan likely discharge to home 09/04/17. Patient does have nebulizer at home she notes. (2) Acute Lumbar Back Strain: Secondary to coughing, muscle strain, immobility with recent illness. PT consulted for stretches, activities, OOB status encouraged, add flexeril, [place] toradol x 3 doses, k-pad, PRN Pain regimen. notable discomfort lumbar spine region with SLR which would be expected with musculoskeletal etiology; however, to be cautious plain film lumbar spine obtained w/ noted degenerative changes L2-L3, possible mild compression fx L5 indeterminate age. Discussed findings with patient, clinically she is improving , continue therapies and if needed will refer to Orthopedics upon discharge to which she was amenable given improvement. (3) Hypertension: Continue home regimen including diltiazem, clonidine, losartan , PRN hydralazine. (4) Hypothyroidism: Continue home synthroid regimen, s/p thyroglossal duct resection. (5) Tobacco Abuse: Encouraged cessation, inpatient consultation per RT, NR if desired. (6) Anxiety and Depression: Maintain on home regimen buspar and effexor. (7) GERD: Famotidine. (8) DVT Prophylaxis: SCDs, lovenox. Code Visit Inpatient E&M: 21194 Subs Hosp L2
[2017-09-03 07:46] LABS: Absolute Lymphocyte Count 0.87 X10^3/ul (0.83-4.51); Hematocrit 36.9 % (37-47); Hemoglobin 12.2 g/dl (12.0-15.0); Lymphocyte # 0.87 X10^3/ul (4.0); Lymphocyte % 3.7 % (19-41); Mean Corp Hgb Conc 33.1 g/gl (32-36); Mean Corpuscular Hgb 33.1 pg (27.0-32.0); Mean Platelet Vol. 7.9 fl (6.2-12.0); Monocyte# 0.72 X10^3/uL; Neutrophil # 22.03 X10^3/uL (2.7-7.7); Neutrophil % 92.6 % (47-70); Platelet Count 432 K/mm3 (150-450); RBC Distribution Width CV 13.4 % (11.6-14.6); RBC Distribution Width SD 48.9 fl (35.1-43.9); Red Blood Count 3.69 M/mm3 (4.2-5.4); White Blood Count 23.8 K/mm3 (4.4-11.0)
[2017-09-03 07:47] LABS: Differential Indicated SCAN CRITERIA MET; POSITIVE COUNT NO; POSITIVE DIFFERENTIAL YES; POSITIVE MORPHOLOGY NO
[2017-09-03 07:52] LABS: Anion Gap 9 (5-15); BUN 13 mg/dL (7-18); BUN/Creat Ratio 18.4 RATIO (10-20); Calcium,Total 8.9 mg/dL (8.5-10.1); Chloride 100 mmol/L (98-107); Creatinine, Serum 0.71 mg/dL (0.55-1.02); EST Glomerular Filtration Rate 90 mL/min (>60); Est Glom Filt Rate - Afr Amer 109 mL/min (>60); Estimated Creatinine Clearance 68.31 ml/min; Glucose 141 mg/dL (74-106); Potassium 4.2 mmol/L (3.5-5.1); Sodium Level 135 mmol/L (136-145)
[2017-09-03] MEDS: Venlafaxine XR 75 MG Capsule PO (08:37)
[2017-09-03] MEDS: Famotidine 20 MG Tablet PO ×2 (08:37→20:53)
[2017-09-03] MEDS: guaiFENesin 1,200 MG Tablet 1200 MG PO ×2 (08:37→20:52)
[2017-09-03] MEDS: Losartan Potassium 100 MG Tablet PO (08:38)
[2017-09-03] MEDS: dilTIAZem CD 180 MG Capsule PO (08:38)
[2017-09-03] MEDS: cloNIDine HCl 0.1 MG Tablet PO ×2 (08:38→20:52)
[2017-09-03] MEDS: Enoxaparin 40 MG/0.4 ML Syringe SC (08:43)
[2017-09-03] MEDS: Meloxicam 15 MG Tablet PO (10:10)
[2017-09-03] MEDS: Ceftriaxone 1 GM/50 ML BAG IV (10:10)
[2017-09-03] MEDS: Mag Hydrox/Al Hydrox/Simeth 30 ML UDC PO (20:53)
[2017-09-04] MEDS: 0.9% Normal Saline 1,000 ML 125 ML IV (00:37)
[2017-09-04 02:20] VITALS: BP 145/76; PULSE 81; RESP 20; TEMP 36.2; O2SAT 94
[2017-09-04] MEDS: oxyCODONE 5 MG Tablet PO ×2 (03:51→08:50)
[2017-09-04] MEDS: CYCLOBENZAPRINE HCL 5 MG TABLET PO (06:03)
[2017-09-04] MEDS: Levothyroxine 125 MCG Tablet PO (06:03)
[2017-09-04 06:37] LABS: Absolute Lymphocyte Count 2.27 X10^3/ul (0.83-4.51); Absolute Neutrophil Count 14.1 X10^3/uL (2.0-7.7); Basophil# 0.01 X10^3/uL; Basophil% 0.1 % (0-1); Hematocrit 34.2 % (37-47); Hemoglobin 11.4 g/dl (12.0-15.0); Lymphocyte # 2.27 X10^3/ul (4.0); Lymphocyte % 12.8 % (19-41); Mean Corp Hgb Conc 33.3 g/gl (32-36); Mean Corpuscular Hgb 33.4 pg (27.0-32.0); Mean Corpuscular Volume 100.3 fL (81-99); Mean Platelet Vol. 7.7 fl (6.2-12.0); Monocyte# 1.24 X10^3/uL; Neutrophil # 14.06 X10^3/uL (2.7-7.7); Neutrophil % 79.3 % (47-70); Platelet Count 371 K/mm3 (150-450); RBC Distribution Width CV 13.6 % (11.6-14.6); RBC Distribution Width SD 49.8 fl (35.1-43.9); Red Blood Count 3.41 M/mm3 (4.2-5.4); White Blood Count 17.7 K/mm3 (4.4-11.0)
[2017-09-04 06:40] LABS: POSITIVE COUNT NO; POSITIVE DIFFERENTIAL NO; POSITIVE MORPHOLOGY NO
[2017-09-04 06:48] LABS: Anion Gap 6 (5-15); BUN 11 mg/dL (7-18); BUN/Creat Ratio 17.1 RATIO (10-20); Calcium,Total 8.6 mg/dL (8.5-10.1); Chloride 102 mmol/L (98-107); Creatinine, Serum 0.64 mg/dL (0.55-1.02); EST Glomerular Filtration Rate 101 mL/min (>60); Est Glom Filt Rate - Afr Amer 122 mL/min (>60); Estimated Creatinine Clearance 75.78 ml/min; Glucose 94 mg/dL (74-106); Sodium Level 136 mmol/L (136-145)
[2017-09-04] MEDS: Ipratropium/Albuterol Sulfate 3 ML AMPUL.NEB INHALATION (07:16)
[2017-09-04 07:18] VITALS: PULSE 83; RESP 16; O2SAT 95
--- NOTE | 2017-09-04 07:49 | PCM.DC ---
- Discharge Diagnoses Current Active Problems: Current Active and Chronic Problems (This Medical Record has been edited. Action required.) COPD (chronic obstructive pulmonary disease) (Chronic) Acute bronchitis with COPD (Acute) Pneumonia (Acute) Tobacco use (Chronic) HTN (hypertension) (Chronic) Hypothyroidism (Chronic) Obesity (BMI 30.0-34.9) (Chronic) Thyroglossal duct cyst (Chronic) (1) Acute on chronic COPD exacerbation with Pneumonia, Failed Outpatient therapy and Acute RSV B Viral Syndrome (2) Acute Lumbar Back Strain, Musculoskeletal with Plain Film Noted Chronic, Unclear Age degenerative changes L2-L3, possible mild compression fx L5 indeterminate age (3) Hypertension (4) Hypothyroidism (5) Tobacco Abuse (6) Anxiety and Depression (7) GERD You will use the following diet at home:: Cardiac Your food should be the consistency of: Regular Your liquids should be the consistency of: Regular/Thin Discharge Activity: - - Avoid aggressive activity until completed steroid taper, improved clinically and cleared per your primary care physician. Avoid triggers that worsen your COPD. May resume sexual activity in: 1-2 weeks Weight Bearing Status: Weight bearing as tolerated Call your doctor if you observe: Fever of 101 or Higher, Inability to urinate, Inability to have a bowel movement, Shortness of breath, Dizziness, Chest pain, Uncontrolled pain Instructions: What is COPD?, Using an Inhaler Without a Spacer, Caring for Your Inhaler, Using a Nebulizer (Adult), What Is Pneumonia?, Preventing Pneumonia, Pneumonia Treatment, RSV (Respiratory Syncytial Virus), Why Do You Smoke?, Planning to Quit Smoking, Getting Support for Quitting Smoking, Coping with Smoking Withdrawal, Back Safety: Getting Into and Out of Bed, Back Safety: Bending, Back Safety: Lifting, Back Safety: Pushing and Pulling, Back Safety: Sleeping Positions, Back Safety: Sitting, Back Safety: Standing, Back Safety: Turning Allergies/Adverse Reactions: Allergies amlodipine Allergy (Verified 09/01/17 13:59) Swelling hydrochlorothiazide Allergy (Verified 09/01/17 17:44) Other pt doesn't remember lisinopril Allergy (Verified 09/01/17 17:44) cough Penicillins Allergy (Verified 09/01/17 13:59) Rash Medications to take at Discharge Albuterol IH (ProAir) [Proair Hfa] 2 puff INHALATION Q4H PRN PRN 09/01/17 Ascorbic Acid [Vitamin C] 500 mg PO DAILY 09/01/17 Budesonide/Formoterol 160/4.5 [Symbicort 160/4.5 Mcg Inhaler (SP)] 2 puff INHALATION BID 09/01/17 BusPIRone [Buspar] 10 mg PO QHS 09/01/17 Clonidine HCl [Catapres] 0.1 mg PO BID 09/01/17 Diltiazem HCl [Cartia Xt] 180 mg PO DAILY 09/01/17 Fish Oil/Dha/Epa [Fish Oil 1,200 mg Fish Oil] 1 each PO DAILY 09/01/17 Levothyroxine [Synthroid] 125 mcg PO DAILY 09/01/17 Losartan Potassium [Cozaar] 100 mg PO DAILY 09/01/17 Venlafaxine HCl [Effexor Xr] 75 mg PO DAILY 09/01/17 Albuterol Aerosols [Ventolin Aerosols] 2.5 mg INHALATION Q2H PRN PRN #1 box 09/04/17 BusPIRone [Buspar] 10 mg PO DAILY@2200 tablet 09/04/17 Cefdinir [Omnicef [equiv]] 300 mg PO Q12H #14 cap 09/04/17 Cyclobenzaprine HCl 5 mg PO TID #12 tab 09/04/17 Famotidine [Pepcid] 20 mg PO BID #60 tab 09/04/17 Guaifenesin [Mucinex] 1,200 mg PO BID #20 tab 09/04/17 Ipratropium/Albuterol Sulfate [Duoneb] 3 ml INHALATION Q6H #1 box 09/04/17 Meloxicam [Mobic] 15 mg PO DAILYCM #7 tab 09/04/17 Nebulizer [Lc Plus] 1 ea MC UD #1 ea 09/04/17 Oxycodone [Oxyir] 5 mg PO Q4H PRN PRN 2 Days #12 tablet 09/04/17 Prednisone 10 mg PO UD #30 tab 09/04/17 The following prescriptions were given: Albuterol Aerosols [Ventolin Aerosols] 2.5 mg INHALATION Q2H PRN PRN #1 box PRN Reason: dyspnea, wheezing Oxycodone [Oxyir] 5 mg PO Q4H PRN PRN 2 Days #12 tablet PRN Reason: Moderate Pain (pain scale 4-5) Cefdinir [Omnicef [equiv]] 300 mg PO Q12H #14 cap Meloxicam [Mobic] 15 mg PO DAILYCM #7 tab Nebulizer [Lc Plus] 1 ea MC UD #1 ea Prednisone 10 mg PO UD #30 tab Famotidine [Pepcid] 20 mg PO BID #60 tab Guaifenesin [Mucinex] 1,200 mg PO BID #20 tab Ipratropium/Albuterol Sulfate [Duoneb] 3 ml INHALATION Q6H #1 box Cyclobenzaprine HCl 5 mg PO TID #12 tab Primary Care Physician: Sherri Ward [Primary Care Provider] - Please follow up with your Primary Care Physician in: Follow-up within 3-5 days to review admission. Please Follow Up With: Jacob Hernández DO When: Consider establishing with Pulmonary Medicine, call off for appointment. Proposed Discharge Date: 09/04/17
--- NOTE | 2017-09-04 07:54 | PCM.DC.SUM ---
Discharge Date and Diagnosis - Problem List Patient Problems: Active and Suspected Problems (This Medical Record has been edited. Action required.) Acute bronchitis with COPD (Acute) Pneumonia (Acute) Date of Admission: 09/01/17 Date of Discharge: 09/04/17 - Primary Discharge Diagnosis Active and Suspected Problems (This Medical Record has been edited. Action required.) Acute bronchitis with COPD (Acute) Pneumonia (Acute) (1) Acute on chronic COPD exacerbation with Pneumonia, Failed Outpatient therapy and Acute RSV B Viral Syndrome (2) Acute Lumbar Back Strain, Musculoskeletal with Plain Film Noted Chronic, Unclear Age degenerative changes L2-L3, possible mild compression fx L5 indeterminate age (3) Hypertension (4) Hypothyroidism (5) Tobacco Abuse (6) Anxiety and Depression (7) GERD (8) Obesity - Secondary Discharge Diagnosis Chronic Problems (This Medical Record has been edited. Action required.) COPD (chronic obstructive pulmonary disease) (Chronic) Tobacco use (Chronic) HTN (hypertension) (Chronic) Hypothyroidism (Chronic) Obesity (BMI 30.0-34.9) (Chronic) Thyroglossal duct cyst (Chronic) Hospital Course and Treatment Operations: None Procedures: EKG Summary of Care Provided: The patient is a 57 y/o F w/ PMHx: Chronic COPD, Tobacco use, HTN, Hypothyroidism w/ Hx Thyroglossal duct cyst s/p resection, Obesity who presented to the [facility] ED on 09/01/17 with history of recent PNA, COPD exacerbation treatment with ongoing sxs and worsened CXR. Recent CTPA with L sided PNA and now current ED CXR w/ chronic changes and RML infiltrates, CBC on admission w/ WBC 18.6 with L shift but recent steroid taper, afebrile. Will admit to [place], maintain on oxygen with wean as tolerated to room air, continue ATC duonebs, PRN albuterol, during admission IV azithromycin x 3 and rocephin-->transition upon discharge to oral omnicef to complete treatment, IV methylprednisolone with prednisone transition 09/03/17 AM w/ taper upon discharge, HOB, IS parameters, urine antigens unremarkable, respiratory panel with RSV B, sputum Cx unremarkable. AM oxygenation testing for discharge planning performed and patient maintained appropriate saturations. Upon admission, patient additionally noted worsened lumbar back strain with ongoing coughing, suspected likely muscle strain. PT consulted for stretches, activities, OOB status encouraged, added flexeril, scheduled toradol x 3 doses-->mobic, k-pad, PRN Pain regimen. 09/02/17 notable discomfort lumbar spine region with SLR which would be expected with musculoskeletal etiology; however, to be cautious plain film lumbar spine obtained w/ noted degenerative changes L2-L3, possible mild compression fx L5 indeterminate age. Discussed findings with patient, clinically she improved thus upon discharge short regimen of flexeril, mobic and PRN pain regimen given with recommendation for follow-up with PCP within 3-5 days to review admission. Also advised consideration of establishment with Pulmonary with information given. Encouraged continued tobacco cessation, inpatient consultation per RT, NR offered. DAY OF DISCHARGE PROGRESS NOTE: Subjective: Patient without acute event overnight per self and nursing report. Patient with ongoing improvement, more energy, less dyspnea, less coughing and back discomfort improving. Patient denies fever, chills, nausea, emesis, abdominal pain, chest pain. Patient agreeable to discharge to home. Patient will be discharged with follow-up with primary care physician within 3-5 days in addition to encouragement to establish with pulmonary. Objective: T 97.1, HR 81, BP 145/76, RR 16, 95% on RA. Physical Examination: General: awake, alert, oriented x 3 and cooperative, seated upright, NAD. Skin: normal color, turgor, no icterus, cyanosis. HEENT: AT/NC, EOMI, PERRLA, MMM. Lungs: Improved effort, improved air movement, mildly diminished BS, > bases, no longer course, occasional soft end expiratory wheeze. Heart: Regular rate and rhythm; no gallop, rub audible. Abdomen: soft, obese, NTTP, ND, normal BS. Extremities: no cyanosis, clubbing, or edema, improved BL lumbar paraspinous muscular tenderness, moving with greater ease. Neurological: patient awake, alert, oriented x 3; cognitive function intact; pupils equally reactive to light and accomodation; cranial nerves II-XII grossly normal, moving all 4 extremities, no focal deficits, strength improved, moderately globally decreased. Psychiatric: affect appears improved, no acute evidence of depressive or anxiety feelings. Assessment and Plan: Please see hospital summary above. Discharge Activity: - - Avoid aggressive activity until completed steroid taper, improved clinically and cleared per your primary care physician. Avoid triggers that worsen your COPD. May resume sexual activity in: 1-2 weeks Weight Bearing Status: Weight bearing as tolerated Call your doctor if you observe: Fever of 101 or Higher, Inability to urinate, Inability to have a bowel movement, Shortness of breath, Dizziness, Chest pain, Uncontrolled pain Home Medications: Medications to take at Discharge Albuterol IH (ProAir) [Proair Hfa] 2 puff INHALATION Q4H PRN PRN 09/01/17 Ascorbic Acid [Vitamin C] 500 mg PO DAILY 09/01/17 Budesonide/Formoterol 160/4.5 [Symbicort 160/4.5 Mcg Inhaler (SP)] 2 puff INHALATION BID 09/01/17 BusPIRone [Buspar] 10 mg PO QHS 09/01/17 Clonidine HCl [Catapres] 0.1 mg PO BID 09/01/17 Diltiazem HCl [Cartia Xt] 180 mg PO DAILY 09/01/17 Fish Oil/Dha/Epa [Fish Oil 1,200 mg Fish Oil] 1 each PO DAILY 09/01/17 Levothyroxine [Synthroid] 125 mcg PO DAILY 09/01/17 Losartan Potassium [Cozaar] 100 mg PO DAILY 09/01/17 Venlafaxine HCl [Effexor Xr] 75 mg PO DAILY 09/01/17 Albuterol Aerosols [Ventolin Aerosols] 2.5 mg INHALATION Q2H PRN PRN #1 box 09/04/17 BusPIRone [Buspar] 10 mg PO DAILY@2200 tablet 09/04/17 Cefdinir [Omnicef [equiv]] 300 mg PO Q12H #14 cap 09/04/17 Cyclobenzaprine HCl 5 mg PO TID #12 tab 09/04/17 Famotidine [Pepcid] 20 mg PO BID #60 tab 09/04/17 Guaifenesin [Mucinex] 1,200 mg PO BID #20 tab 09/04/17 Ipratropium/Albuterol Sulfate [Duoneb] 3 ml INHALATION Q6H #1 box 09/04/17 Meloxicam [Mobic] 15 mg PO DAILYCM #7 tab 09/04/17 Nebulizer [Lc Plus] 1 ea MC UD #1 ea 09/04/17 Oxycodone [Oxyir] 5 mg PO Q4H PRN PRN 2 Days #12 tablet 09/04/17 Prednisone 10 mg PO UD #30 tab 09/04/17 Following Prescrptions Were Given to Patient: Albuterol Aerosols [Ventolin Aerosols] 2.5 mg INHALATION Q2H PRN PRN #1 box PRN Reason: dyspnea, wheezing Oxycodone [Oxyir] 5 mg PO Q4H PRN PRN 2 Days #12 tablet PRN Reason: Moderate Pain (pain scale 4-5) Cefdinir [Omnicef [equiv]] 300 mg PO Q12H #14 cap Meloxicam [Mobic] 15 mg PO DAILYCM #7 tab Nebulizer [Lc Plus] 1 ea MC UD #1 ea Prednisone 10 mg PO UD #30 tab Famotidine [Pepcid] 20 mg PO BID #60 tab Guaifenesin [Mucinex] 1,200 mg PO BID #20 tab Ipratropium/Albuterol Sulfate [Duoneb] 3 ml INHALATION Q6H #1 box Cyclobenzaprine HCl 5 mg PO TID #12 tab Primary Care Physician: Sherri Ward [Primary Care Provider] - Please follow up with your Primary Care Physician in: Follow-up within 3-5 days to review admission. Please Follow Up With: Jacob Hernández DO When: Consider establishing with Pulmonary Medicine, call off for appointment. Patient Instructions: Back Safety: Getting Into and Out of Bed, Back Safety: Bending, Back Safety: Lifting, Back Safety: Pushing and Pulling, Back Safety: Sleeping Positions, Back Safety: Sitting, Back Safety: Standing, Back Safety: Turning, What is COPD?, Caring for Your Inhaler, Using an Inhaler Without a Spacer, What Is Pneumonia?, Preventing Pneumonia, Pneumonia Treatment, Why Do You Smoke?, Planning to Quit Smoking, Getting Support for Quitting Smoking, Coping with Smoking Withdrawal, RSV (Respiratory Syncytial Virus), Using a Nebulizer (Adult) Disposition: Home Minutes spent on discharge:: 35 Patient Condition:: Fair Meaningful Use Info Meaningful Use Diagnoses (Choose all that apply): None applicable Code Visit Inpatient E&M: 75737 Disch Hosp
--- NOTE | 2017-09-04 08:01 | DS.PCM_ITS ---
Discharge Date and Diagnosis - Problem List Patient Problems: Active and Suspected Problems (This Medical Record has been edited. Action required.) Acute bronchitis with COPD (Acute) Pneumonia (Acute) Date of Admission: 09/01/17 Date of Discharge: 09/04/17 - Primary Discharge Diagnosis Active and Suspected Problems (This Medical Record has been edited. Action required.) Acute bronchitis with COPD (Acute) Pneumonia (Acute) (1) Acute on chronic COPD exacerbation with Pneumonia, Failed Outpatient therapy and Acute RSV B Viral Syndrome (2) Acute Lumbar Back Strain, Musculoskeletal with Plain Film Noted Chronic, Unclear Age degenerative changes L2-L3, possible mild compression fx L5 indeterminate age (3) Hypertension (4) Hypothyroidism (5) Tobacco Abuse (6) Anxiety and Depression (7) GERD (8) Obesity - Secondary Discharge Diagnosis Chronic Problems (This Medical Record has been edited. Action required.) COPD (chronic obstructive pulmonary disease) (Chronic) Tobacco use (Chronic) HTN (hypertension) (Chronic) Hypothyroidism (Chronic) Obesity (BMI 30.0-34.9) (Chronic) Thyroglossal duct cyst (Chronic) Hospital Course and Treatment Operations: None Procedures: EKG Summary of Care Provided: The patient is a 57 y/o F w/ PMHx: Chronic COPD, Tobacco use, HTN, Hypothyroidism w/ Hx Thyroglossal duct cyst s/p resection, Obesity who presented to the [facility] ED on 09/01/17 with history of recent PNA, COPD exacerbation treatment with ongoing sxs and worsened CXR. Recent CTPA with L sided PNA and now current ED CXR w/ chronic changes and RML infiltrates, CBC on admission w/ WBC 18.6 with L shift but recent steroid taper, afebrile. Will admit to [place], maintain on oxygen with wean as tolerated to room air, continue ATC duonebs, PRN albuterol, during admission IV azithromycin x 3 and rocephin--> transition upon discharge to oral omnicef to complete treatment, IV methylprednisolone with prednisone transition 09/03/17 AM w/ taper upon discharge , HOB, IS parameters, urine antigens unremarkable, respiratory panel with RSV B , sputum Cx unremarkable. AM oxygenation testing for discharge planning performed and patient maintained appropriate saturations. Upon admission, patient additionally noted worsened lumbar back strain with ongoing coughing, suspected likely muscle strain. PT consulted for stretches, activities, OOB status encouraged, added flexeril, scheduled toradol x 3 doses-->mobic, k-pad, PRN Pain regimen. 09/02/17 notable discomfort lumbar spine region with SLR which would be expected with musculoskeletal etiology; however, to be cautious plain film lumbar spine obtained w/ noted degenerative changes L2-L3, possible mild compression fx L5 indeterminate age. Discussed findings with patient, clinically she improved thus upon discharge short regimen of flexeril, mobic and PRN pain regimen given with recommendation for follow-up with PCP within 3- 5 days to review admission. Also advised consideration of establishment with Pulmonary with information given. Encouraged continued tobacco cessation, inpatient consultation per RT, NR offered. DAY OF DISCHARGE PROGRESS NOTE: Subjective: Patient without acute event overnight per self and nursing report. Patient with ongoing improvement, more energy, less dyspnea, less coughing and back discomfort improving. Patient denies fever, chills, nausea, emesis, abdominal pain, chest pain. Patient agreeable to discharge to home. Patient will be discharged with follow-up with primary care physician within 3-5 days in addition to encouragement to establish with pulmonary. Objective: T 97.1, HR 81, BP 145/76, RR 16, 95% on RA. Physical Examination: General: awake, alert, oriented x 3 and cooperative, seated upright, NAD. Skin: normal color, turgor, no icterus, cyanosis. HEENT: AT/NC, EOMI, PERRLA, MMM. Lungs: Improved effort, improved air movement, mildly diminished BS, > bases, no longer course, occasional soft end expiratory wheeze. Heart: Regular rate and rhythm; no gallop, rub audible. Abdomen: soft, obese, NTTP, ND, normal BS. Extremities: no cyanosis, clubbing, or edema, improved BL lumbar paraspinous muscular tenderness, moving with greater ease. Neurological: patient awake, alert, oriented x 3; cognitive function intact; pupils equally reactive to light and accomodation; cranial nerves II-XII grossly normal, moving all 4 extremities, no focal deficits, strength improved, moderately globally decreased. Psychiatric: affect appears improved, no acute evidence of depressive or anxiety feelings. Assessment and Plan: Please see hospital summary above. Discharge Activity: - - Avoid aggressive activity until completed steroid taper , improved clinically and cleared per your primary care physician. Avoid triggers that worsen your COPD. May resume sexual activity in: 1-2 weeks Weight Bearing Status: Weight bearing as tolerated Call your doctor if you observe: Fever of 101 or Higher, Inability to urinate, Inability to have a bowel movement, Shortness of breath, Dizziness, Chest pain, Uncontrolled pain Home Medications: Medications to take at Discharge Albuterol IH (ProAir) [Proair Hfa] 2 puff INHALATION Q4H PRN PRN 09/01/17 Ascorbic Acid [Vitamin C] 500 mg PO DAILY 09/01/17 Budesonide/Formoterol 160/4.5 [Symbicort 160/4.5 Mcg Inhaler (SP)] 2 puff INHALATION BID 09/01/17 BusPIRone [Buspar] 10 mg PO QHS 09/01/17 Clonidine HCl [Catapres] 0.1 mg PO BID 09/01/17 Diltiazem HCl [Cartia Xt] 180 mg PO DAILY 09/01/17 Fish Oil/Dha/Epa [Fish Oil 1,200 mg Fish Oil] 1 each PO DAILY 09/01/17 Levothyroxine [Synthroid] 125 mcg PO DAILY 09/01/17 Losartan Potassium [Cozaar] 100 mg PO DAILY 09/01/17 Venlafaxine HCl [Effexor Xr] 75 mg PO DAILY 09/01/17 Albuterol Aerosols [Ventolin Aerosols] 2.5 mg INHALATION Q2H PRN PRN #1 box 08/23 BusPIRone [Buspar] 10 mg PO DAILY@2200 tablet 09/04/17 Cefdinir [Omnicef [equiv]] 300 mg PO Q12H #14 cap 09/04/17 Cyclobenzaprine HCl 5 mg PO TID #12 tab 09/04/17 Famotidine [Pepcid] 20 mg PO BID #60 tab 09/04/17 Guaifenesin [Mucinex] 1,200 mg PO BID #20 tab 09/04/17 Ipratropium/Albuterol Sulfate [Duoneb] 3 ml INHALATION Q6H #1 box 09/04/17 Meloxicam [Mobic] 15 mg PO DAILYCM #7 tab 09/04/17 Nebulizer [Lc Plus] 1 ea MC UD #1 ea 09/04/17 Oxycodone [Oxyir] 5 mg PO Q4H PRN PRN 2 Days #12 tablet 09/04/17 Prednisone 10 mg PO UD #30 tab 09/04/17 Following Prescrptions Were Given to Patient: Albuterol Aerosols [Ventolin Aerosols] 2.5 mg INHALATION Q2H PRN PRN #1 box PRN Reason: dyspnea, wheezing Oxycodone [Oxyir] 5 mg PO Q4H PRN PRN 2 Days #12 tablet PRN Reason: Moderate Pain (pain scale 4-5) Cefdinir [Omnicef [equiv]] 300 mg PO Q12H #14 cap Meloxicam [Mobic] 15 mg PO DAILYCM #7 tab Nebulizer [Lc Plus] 1 ea MC UD #1 ea Prednisone 10 mg PO UD #30 tab Famotidine [Pepcid] 20 mg PO BID #60 tab Guaifenesin [Mucinex] 1,200 mg PO BID #20 tab Ipratropium/Albuterol Sulfate [Duoneb] 3 ml INHALATION Q6H #1 box Cyclobenzaprine HCl 5 mg PO TID #12 tab Primary Care Physician: Sherri Ward [Primary Care Provider] - Please follow up with your Primary Care Physician in: Follow-up within 3-5 days to review admission. Please Follow Up With: Jacob Hernández DO When: Consider establishing with Pulmonary Medicine, call off for appointment. Patient Instructions: Back Safety: Getting Into and Out of Bed, Back Safety: Bending, Back Safety: Lifting, Back Safety: Pushing and Pulling, Back Safety: Sleeping Positions, Back Safety: Sitting, Back Safety: Standing, Back Safety: Turning, What is COPD?, Caring for Your Inhaler, Using an Inhaler Without a Spacer, What Is Pneumonia?, Preventing Pneumonia, Pneumonia Treatment, Why Do You Smoke?, Planning to Quit Smoking, Getting Support for Quitting Smoking, Coping with Smoking Withdrawal, RSV (Respiratory Syncytial Virus), Using a Nebulizer (Adult) Disposition: Home Minutes spent on discharge:: 35 Patient Condition:: Fair Meaningful Use Info Meaningful Use Diagnoses (Choose all that apply): None applicable Code Visit Inpatient E&M: 95324 Disch Hosp
[2017-09-04 08:25] VITALS: BP 208/94; PULSE 83; RESP 16; TEMP 35.9; O2SAT 94
[2017-09-04] MEDS: guaiFENesin 1,200 MG Tablet 1200 MG PO (08:39)
[2017-09-04] MEDS: Magnesium Hydroxide 30 ML UDC PO (08:39)
[2017-09-04] MEDS: Venlafaxine XR 75 MG Capsule PO (08:40)
[2017-09-04] MEDS: Docusate Sodium 100 MG Capsule 200 MG PO (08:40)
[2017-09-04] MEDS: Meloxicam 15 MG Tablet PO (08:40)
[2017-09-04] MEDS: Enoxaparin 40 MG/0.4 ML Syringe SC (08:40)
[2017-09-04] MEDS: Famotidine 20 MG Tablet PO (08:40)
[2017-09-04] MEDS: Losartan Potassium 100 MG Tablet PO (08:40)
[2017-09-04] MEDS: cloNIDine HCl 0.1 MG Tablet PO (08:40)
[2017-09-04] MEDS: dilTIAZem CD 180 MG Capsule PO (08:40)
[2017-09-04 08:41] VITALS: PULSE 63
--- NOTE | 2017-09-04 08:44 | NURSING ---
Pt. request all am meds prior to d/c home.
--- NOTE | 2017-09-04 10:31 | NURSING ---
BP recheck 143/81, HR 78.
== END 2017-09-04 10:50 | disposition home or self-care (01) | DRG 190 ==
LOC: ED 15:35 → MS2 16:20
PROVIDERS: Admitting Provider Family Medicine; Emergency Provider Emergency Medicine; Family Provider Nurse Practitioner; PCP Nurse Practitioner; Visit Provider Family Medicine
DX: J44.1 Chronic obstructive pulmonary disease with (acute) exacerbation (principal); J12.1 Respiratory syncytial virus pneumonia; B97.4 Respiratory syncytial virus as the cause of diseases classified elsewhere; D72.829 Elevated white blood cell count, unspecified; S39.012A Strain of muscle, fascia and tendon of lower back, initial encounter; E03.9 Hypothyroidism, unspecified; E66.9 Obesity, unspecified; J44.0 Chronic obstructive pulmonary disease with (acute) lower respiratory infection; J20.9 Acute bronchitis, unspecified; F17.210 Nicotine dependence, cigarettes, uncomplicated; I10 Essential (primary) hypertension; Z68.34 Body mass index [BMI] 34.0-34.9, adult; Z79.51 Long term (current) use of inhaled steroids; Z79.52 Long term (current) use of systemic steroids; Z79.899 Other long term (current) drug therapy; F41.9 Anxiety disorder, unspecified; F32.9 Major depressive disorder, single episode, unspecified; K21.9 Gastro-esophageal reflux disease without esophagitis; Z86.39 Personal history of other endocrine, nutritional and metabolic disease; M51.36 Other intervertebral disc degeneration, lumbar region; X58.XXXA Exposure to other specified factors, initial encounter; Y93.89 Activity, other specified; Y92.009 Unspecified place in unspecified non-institutional (private) residence as the place of occurrence of the external cause; Y99.8 Other external cause status
CPT/HCPCS: 36415; 71046; 72100; 80048; 83735; 85025; 87070; 87205; 87449; 87633; 93005; 94640; 94667; 94668; 97110; 97162; 97802; 99284; 99406; J7030; A4216

== ENCOUNTER → 2017-09-15 13:06 | Outpatient (CLI) | payer OTHER, SELFPAY ==
--- NOTE | 2017-09-16 08:35 | PFT ---
INTRODUCTION: The patient is a 65-year-old female currently under the care of myself the presents for pulmonary function testing secondary to a diagnosis of COPD. Respiratory therapy reports good patient effort reports no other concerns. Bronchodilators were used during testing. INTERPRETATION: Forced expiration spirometry demonstrates the presence of a moderate large airways obstructive ventilatory defect. There was a significant response to aerosolized bronchodilators noted in both FEV1 and FVC. Spirograms are of good quality and do not plateau indicating slow emptying of the lungs. The respiratory flow volume loop reveals decreased expiratory flow rates at all lung volumes consistent with airways obstruction. Body plethysmography was performed and reveals an elevated TLC and RV, indicative of underlying hyperinflation and air trapping. Diffusing capacity by single breath CO was preserved at 77% of predicted. IMPRESSION: These pulmonary function studies demonstrate the presence of a partially reversible moderate large airways obstructive ventilatory defect with associated hyperinflation and air trapping. There are no previous pulmonary function studies available for comparison.
== END ==
PROVIDERS: Family Provider Nurse Practitioner; PCP Nurse Practitioner; Visit Provider Internal Medicine Critical Care Medicine
DX: J44.9 Chronic obstructive pulmonary disease, unspecified (principal)
CPT/HCPCS: 94060; 94726; 94729

== ENCOUNTER → 2017-09-22 08:21 | Outpatient (CLI) | payer OTHER, SELFPAY ==
[2017-09-22 08:30] VITALS: PULSE 104; PULSE 105; PULSE 108; PULSE 109; PULSE 70; PULSE 80; PULSE 92; PULSE 94; O2SAT 93; O2SAT 94; O2SAT 95; O2SAT 96; O2SAT 98
--- NOTE | 2017-09-22 09:52 | WT_ITS ---
PSN 6 Minute Walk Test - 6 Minute Walk Test 6 Minute Walk Test: 6 Minute Walk Test PSN:6-Minute Walk Test Start: 09/22/17 08: 37 Freq: Status: Active Protocol: RESP.6MINW Document 09/22/17 08:30 HG (Rec: 09/22/17 08:39 HG [id number]) 6 Minute Walk Test Date Performed 09/22/17 Time Performed 08:30 Height 5 ft 3 in Weight: 81.647 kg Weight in Pounds 180.[address]: Jacob Hernández Assistive device used: None Pre-test Oxygen Delivery Method Room Air Pulse Ox (%) 98 Pulse Rate (60-100 beats/min) 92 Dyspnea Brady Scale (0-10) 1 Exertion Brady Scale (6-20) 8 1st minute Oxygen Delivery Method Room Air Pulse Ox (%) 98 Pulse Rate (60-100 beats/min) 105 H 2nd minute Oxygen Delivery Method Room Air Pulse Ox (%) 98 Pulse Rate (60-100 beats/min) 104 H 3rd minute Oxygen Delivery Method Room Air Pulse Ox (%) 96 Pulse Rate (60-100 beats/min) 109 H 4th minute Oxygen Delivery Method Room Air Pulse Ox (%) 94 Pulse Rate (60-100 beats/min) 108 H 5th minute Oxygen Delivery Method Room Air Pulse Ox (%) 93 Pulse Rate (60-100 beats/min) 80 6th minute Oxygen Delivery Method Room Air Pulse Ox (%) 95 Pulse Rate (60-100 beats/min) 70 Post-test Oxygen Delivery Method Room Air Pulse Ox (%) 98 Pulse Rate (60-100 beats/min) 94 Dyspnea Brady Scale (0-10) 3 Exertion Brady Scale (6-20) 11 Full Laps Walked 23 Partial Lap, Number of Tiles Walked 0 Total Distance Walked (ft) 1357 - Interpretation Interpretation: Patient was able to ambulate 1357 feet over the course of 6 minutes on room air with no assistive devices. Patient did experience significant desaturation from 98% at baseline to as low as 93% with ambulation. No significant tachycardia was noted. These findings are consistent with a respiratory limitation exercise tolerance. - Recommendations Recommendations: No supplemental oxygen is indicated at this time. However, patient will need to be followed closely given level of desaturation with ambulation.
== END ==
PROVIDERS: Family Provider Nurse Practitioner; PCP Nurse Practitioner; Visit Provider Internal Medicine Critical Care Medicine
DX: J44.9 Chronic obstructive pulmonary disease, unspecified (principal)
CPT/HCPCS: 94618

== ENCOUNTER → 2018-03-18 11:42 | Outpatient (CLI) | payer OTHER, SELFPAY ==
--- NOTE | 2018-03-18 11:45 | RAD_ITS ---
STUDY: X-RAY - LUMBAR SPINE REASON FOR EXAM: Female, 57 years old. Low back pain with radiation into the right lower extremity. TECHNIQUE: 4 view(s) of the lumbar spine were obtained. COMPARISON: Comparison is made with prior study dated September 02, 2017. FINDINGS: There is straightening of the normal lumbar lordosis. There is a minimal dextroscoliosis of the lumbar spine. There is a normal alignment of the vertebrae. Stable mild loss of height of the superior endplate of the L5 vertebra suggestive of an old compression fracture. There is multilevel endplate spondylosis of the lumbar vertebrae. There is multi-level degenerative disc disease with multi-level disc space narrowing. There is atherosclerotic calcification of the abdominal aorta without a demonstrated aneurysm. RAD/L/S Spine Min 4 Views IMPRESSION: Degenerative changes of the spine, as detailed above. Straightening of the normal lumbar lordosis. Electronically Signed: Jax Allen MD at 14:02 EDT Tel [phone], Service support ,
== END ==
PROVIDERS: Family Provider Nurse Practitioner; PCP Nurse Practitioner; Visit Provider Nurse Practitioner
DX: M54.5 Low back pain (principal)
CPT/HCPCS: 72110

== ENCOUNTER 2018-04-21 11:30 | Outpatient (RCR) | payer OTHER, SELFPAY ==
--- NOTE | 2018-03-23 10:24 | HP.PTEVAL_ITS ---
Patient's Visit Information ABRAK MEHTA is a 57 year old F referred to Physical Therapy by Sherri Ward with a diagnosis of LOW BACK PAIN. Date of Evaluation: 03/23/18 Physical Therapist: Janet Montez Visit Plan Frequency: 2-3x /Week Duration: 4-6 Weeks Plan: POSTURE CORRECTION/STRENGTHENING, INSTRUCTION IN APPROPRIATE BODY MECHANICS AND ACTIVITY MODIFICATIONS. DLS STARTING WITH A NEUTRAL SPINE PROGRESSING ROM TOLERATED. WAGNER LE ROM, STRETCHING AND STRENGTHENING. HEP INSTRUCTION. - Subjective Subjective: Work/Leisure: UNEMPLOYEED. 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 Disability: NO. Present symptoms: MID AND LOW BACK PAIN INTO RIGHT BUTTOCK AND RIGHT THIGH. NO LLE SX'S. NO WAGNER LE NUMBNESS OR TINGLING. Present since: Aug. Pain Scale: WORST 10/10, LEAST 4/10. Currently: 4/10. Commenced as a result of: IN [facility]. STATES SHE HAD A PRIOR COMPRSSION FX'S OF L2 AND 3. SHE DIDN'T KNOW ABOUT AND THE COUGHING APPARENTLY EXACERBATED THE PAIN. Symptoms at onset: LOW BACK. Worse: PROLONGED STANDING, PROLONGED WALKING, CARRYING EVEN A GALLON OF MILK, TURNING IN BED AND COUGHING/SNEEZING. PROLONGED SITTING. LIFTING. Better: SOMETIMES BENDING LIKE GARDENING BUT TRYING TO GET UP SHOOTS THROUGHT THE SPINE. LEANING FORWARD A LITTLE BIT. SITTING SOMETIMES. LYING. Disturbed sleep: YES. Previous history/Previous treatment: UNREMARKABLE. DOES NOT HAVE ANY IDEA WHAT CAUSED THE COMPRESSION FX'S. Coughing/sneezing/straining: POSITIVE. Gait: SOMETIMES PAIN IN LOW BACK CAUSES HER TO FEEL A LITTLE OFF CENTER AND LIMP BUT NOT DIZZY. Difficulty initiating urinatin: NO. Accidents: NO. Unexplained weight loss: NO. Imaging: NO MRI. LUMBAR X-RAYS IN AUG 2017 AND RECENTLY THIS MONTH (MAR) WITH RESULTS FOLLOWS: There is straightening of the normal lumbar lordosis. There is a minimal dextroscoliosis of the lumbar spine. There is a normal alignment of the. vertebrae. Stable mild loss of height of the superior endplate of the L5. vertebra suggestive of an old compression fracture. There is multilevel endplate spondylosis of the lumbar vertebrae. There is. multi-level degenerative disc disease with multi-level disc space. narrowing. PMH: HTN, THYROID DZ, COPD, ASTHMA. Recent major surgery: HIATIAL HERNIA SX FEB 12 AND 2017. 2010 THROAT BENIGN TUMOR. - Objective Sitting/Standing Posture: POOR. Lordosis: REDUCED. Active Correction of posture: WORSE. Other Observations: INDEP GAIT INTO PT WITHOUT AD OR GROSS DEVIATION NOTED. INDEP SIT TO STAND WITHOUT UE ASSIST. Motor deficit: WAGNER LE' S 5/5 WITH MMT'ING EXCEPT HIPS GRADED 4/5. Sensory deficit: NO. ROM deficit: MILD WAGNER LE HS AND GASTROC SOLEUS COMPLEX TIGHTNESS. Reflexes: 2/3 WAGNER LE'S. Dural Signs: NEGATIVE WAGNER LE'S. Lumbar mvmt loss: flex - MOD - PROVOKES MILD LBP. ext - MOD - MID AND LOW BACK PAIN. R SG - MIN - RIGHT HIP AND THIGH PAIN. L SG - MIN - MID BACK PAIN. ALL PAIN PROVOKED WITH ROM TESTING WAS REPORTED MILD. Core strength: POOR. Palpation: NO ACUTE TENDERNESS WITH PALPATION OF THE THORACIC SPINE, LUMBAR SPINE OR HIPS. OTHER: NEGATIVE WAGNER SLR TESTS. WAGNER HIP ROM SYMMETRICAL AND WFL WITH TESTING NOT CAUSING ANY ACUTE PAIN. PAIN AND GUARDING WITH TRANSFERS SUPINE TO SIT AND REVERSE. - Goals Goal 1:: DECREASE C/O BACK AND RIGHT LE SX'S. Goal Time Frame: 4-6 Weeks Goal 2:: IMRPOVE PERSONAL CARE, LIFTING, WALKING, STANDING, SLEEP, SOCIAL LIFE, TRAVEL, HOMEMAKING AND RECREATIONAL FUNCTION. Goal Time Frame: 4-6 Weeks Goal 3:: INSTRUCT IN PROPHYLAXIS. Goal Time Frame: 4-6 Weeks - Rehabilitation Potential Rehabilitation Potential: Fair - Anticipated Interventions Patient/Client Instruction: Educate patient on: Condition, Plan of Care, Risk Factors, Benefits of Fitness Program For the Purpose of:: To improve self management Therapeutic Exercise to Include: Strength training, Body mechanics, Postural training, Dynamic Lumbar Stabilization For the Purpose of:: To decrease pain, To improve muscle performance and motor function, To increase tolerance to activity/condition/position, To improve ability of physical actions for home/community/work/leisure TENS: Yes IF ES: Yes Cryotherapy (ice pack, ice massage): Yes Thermo therapy (hot pack): Yes Ultrasound (thermal/non thermal): Yes For the Purpose of:: To decrease pain, To increase ROM, To improve nutrient delivery to tissue Thank you for the opportunity to evaluate your patient. For Medicare and Medicare HMO plans, please review the plan of care and approve it. It will need to be FAXED BACK to us at [phone] for Medicare purposes. Please let me know if there are questions or concerns regarding this plan of care. Physician Signature: Date:
--- NOTE | 2018-04-21 12:04 | HP.PTDCSUM ---
HP - PT D/C Summary It has been my pleasure to treat BARAK MEHTA under orders from Sherri Ward NP, for the diagnosis of LOW BACK PAIN for a total of 12 visit(s). Discharge Date: 04/21/18 Please see the following information for a summary of their discharge status. - Subjective Subjective: PATIENT REPORTS SHE IS A LOT BETTER . LOW BACK PAIN RANGES 0/10 TO 6/10 NOW. PROLONGED STANDING AND WALKING STILL INCREASE HER PAIN BUT SHE CAN WALK FURTHER NOW. PATIENT REPORTS HER HEP IS GOOD AND SHE IS READY TO STOP THERAPY AND TRY TO CONT ON HER OWN. SHE STATES YESTERDAY WAS A GOOD TEST BECAUSE SHE DID SOME TRAVELING AND SHOPPING AND WAS IN AND OUT OF THE CAR A LOT AND DID OK. PATIENT REPORTS SHE KNOWS HER LEGS ARE STRONGER BECAUSE SHE CAN BEND DOWN AND KEEP HER BACK STRAIGHTER. - Pain LOW BACK Pain Intensity (Out of 10): 0 - Overall Improvement % Improvement: 90 - Objective Objective/Function: ALL GAOLS MET BUT PAIN STILL ABLE TO BE PROVOKED WITH EXAM TODAY. Motor deficit: WAGNER LE'S 5/5 - LEFT HIP TESTING PROVOKED FLEETING RIGHT LBP. Sensory deficit: NO. ROM deficit: MILD WAGNER LE HS AND GASTROC SOLEUS COMPLEX TIGHTNESS CONTINUES. Dural Signs: NEGATIVE WAGNER LE'S. Lumbar mvmt loss: flex - MIN. ext - MOD. R SG - MIN. L SG - MIN. PATIENT DENIES PAIN WITH LUMBAR ROM TESTING ALL PLANES TODAY BUT TWISTING TO THE RIGHT IN STANDING DID PROVOKE FLEETING BACK PAIN. Core strength: POOR BUT IMPROVING. Palpation: NO ACUTE TENDERNESS WITH PALPATION OF THE THORACIC SPINE, LUMBAR SPINE OR HIPS. PAIN AND GUARDING WITH TRANSFERS SUPINE TO SIT AND REVERSE HAVE LESSEND. ROLLING ALSO PROVOKES FLEETING LBP BOTH TO THE RIGHT AND LEFT. AFTER EXAM RIGHT LBP WAS PROVOKED TO 3/10 THAT ABOLISHED WITH REST. BACK OSWESTRY SCORE HAS NOT CHANGED. - Goals Goal 1:: DECREASE C/O BACK AND RIGHT LE SX'S. Goal Progress: Goal Met Goal 2:: IMRPOVE PERSONAL CARE, LIFTING, WALKING, STANDING, SLEEP, SOCIAL LIFE, TRAVEL, HOMEMAKING AND RECREATIONAL FUNCTION. Goal Progress: Goal Met Goal 3:: INSTRUCT IN PROPHYLAXIS. Goal Progress: Goal Met - Plan Plan: D/C TO INDEP HEP AT PATIENTS REQUEST. WE WOULD BE HAPPY TO RESUME PT IN THE FUTURE NEEDED. - D/C Information If there are questions or concerns regarding this patient's physical therapy, please feel free to call me at [phone]. Thank you for the referral of this patient. Sincerely, Janet Heard
== END 2018-04-21 18:40 | disposition home or self-care (01) ==
LOC: PT 11:30
PROVIDERS: Family Provider Nurse Practitioner; PCP Nurse Practitioner; Visit Provider Nurse Practitioner
DX: M54.5 Low back pain (principal)
CPT/HCPCS: 97014; 97035; 97110; 97140; 97162; 97164; 97530; G0283

== ENCOUNTER → 2018-09-29 09:25 | Outpatient (CLI) | payer OTHER, SELFPAY ==
--- NOTE | 2018-09-29 09:30 | RAD_ITS ---
STUDY: X-RAY - ESOPHAGUS (BARIUM SWALLOW) WITH FLUOROSCOPY REASON FOR EXAM: Female, 58 years old. Proximal dysphasia. TECHNIQUE: 14 view(s) of the esophagus were obtained following swallowing of barium. FLUOROSCOPY TIME (if supplied): (0:30) minutes/seconds COMPARISON: None. FINDINGS: There is no demonstrated esophageal foreign body. There is no demonstrated stricture or mucosal abnormality. There is a small hiatal hernia of the fundus of the stomach. The patient ingested a 12 mm tablet of barium without any difficulty. There is atherosclerotic calcification of the aortic arch with tortuosity of the descending aorta. Normal visualized pulmonary parenchyma. Normal visualized osseous structures of the thorax. RAD/Esophagus Only IMPRESSION: Small sliding hernia without gastroesophageal reflux. Electronically Signed: Jax Allen, at 15:48 EDT , Service support ,
== END ==
PROVIDERS: Family Provider Nurse Practitioner; PCP Nurse Practitioner; Referring Provider Nurse Practitioner; Visit Provider Nurse Practitioner
DX: R13.10 Dysphagia, unspecified (principal)
CPT/HCPCS: 74220

== ENCOUNTER → 2019-01-15 | Outpatient (CLI) | payer OTHER, SELFPAY ==
--- NOTE | 2019-01-15 09:34 | BI_ITS ---
MAMMOGRAPHY - BILATERAL SCREENING REASON FOR EXAM: Female, 58 years old. Routine annual screening examination. PERTINENT HISTORY: Non-contributory. TECHNIQUE: Digital bilateral breast davion (3D mammographic acquisition) in the CC and MLO projections. 2-D mediolateral oblique (MLO) and craniocaudad (CC) views of both breasts were obtained. CAD: Full Field Digital Mammography with Computer Added Detection was performed. COMPARISON: Comparison is made with prior study dated August 11, 2017. FINDINGS: Breast Composition: The breasts are heterogeneously dense, which may obscure small masses. There are no dominant masses or suspicious calcifications. Stable small benign-appearing bilateral axillary lymph nodes. No other significant abnormalities are identified. There has been no significant change since the prior study. BI/SCREEN MAMM (CAD) W/DAVION BILAT IMPRESSION: Stable bilateral screening mammogram. Yearly follow-up mammogram recommended. (A) ASSESSMENT CATEGORY: BIRADS Category 2: Benign. A letter regarding these results will be sent to the patient by the facility within 30 days. Approximately 10% of breast cancers are not detected by mammography. A normal mammogram should not delay biopsy of a clinically suspicious abnormality. [id number] Electronically Signed: Jax Allen, at 8:48 EDT , Service support ,
== END | disposition home or self-care (01) ==
LOC: OPBI 09:32
PROVIDERS: Family Provider Nurse Practitioner; PCP Nurse Practitioner; Referring Provider Nurse Practitioner; Visit Provider Nurse Practitioner
DX: Z12.31 Encounter for screening mammogram for malignant neoplasm of breast (principal)
CPT/HCPCS: 77063; 77067

== ENCOUNTER → 2020-01-17 | Outpatient (CLI) | payer OTHER, SELFPAY ==
--- NOTE | 2020-01-17 10:55 | BI_ITS ---
MAMMOGRAPHY - BILATERAL SCREENING REASON FOR EXAM: Female, 59 years old. Routine annual screening examination. PERTINENT HISTORY: Non-contributory. TECHNIQUE: Digital bilateral breast davion (3D mammographic acquisition) in the CC and MLO projections. 2-D mediolateral oblique (MLO) and craniocaudad (CC) views of both breasts were obtained. CAD: Full Field Digital Mammography with Computer Added Detection was performed. COMPARISON: Comparison is made with prior study dated January 15, 2019 and August 11, 2017. FINDINGS: Breast Composition: The breasts are heterogeneously dense, which may obscure small masses. There are no dominant masses or suspicious calcifications. Stable small axillary lymph nodes. No other significant abnormalities are identified. There has been no significant change since the prior study. BI/SCREEN MAMM (CAD) W/DAVION BILAT IMPRESSION: Stable bilateral screening mammogram. Yearly follow-up mammogram recommended. (A) ASSESSMENT CATEGORY: BIRADS Category 2: Benign. A letter regarding these results will be sent to the patient by the facility within 30 days. Approximately 10% of breast cancers are not detected by mammography. A normal mammogram should not delay biopsy of a clinically suspicious abnormality. [id number] Electronically Signed: Jax Allen, at 12:27 EDT , Service support ,
--- NOTE | 2020-01-17 10:57 | BD_ITS ---
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 COMPARISON: 08/11/2017 FINDINGS: Lumbar Spine (L1-L4): g/cm2 (0.828) / T-score (-2.8) / Z-score (-1.6) Findings are suggestive of osteoporosis with a high fracture risk. Left Femur Total: g/cm2 (0.851) / T-score (-1.2) / Z-score (-0.3) Left Femoral Neck: g/cm2 (0.799) / T-score (-1.7) / Z-score (-0.5) Right Femur Total: g/cm2 (0.844) / T-score (-1.3) / Z-score (-0.3) Right Femoral Neck: g/cm2 (0.765) / T-score (-2.0) / Z-score (-0.7) The T-Scores on the most recent prior examination were: Lumbar Spine (L1-L4): There has been worsening of bone density since the previous examination. There has been an increase in bone mineral density in both femurs since the previous study BD/Dexa Bone Density Study IMPRESSION: The patient is considered osteoporotic as outlined below according to World Mehdi Organization (WHO) criteria with a high fracture risk. Reference Information: The T-score is the number of standard deviations above or below the standard which is normal for young adults at their peak bone mineral density. The World Health Organization (WHO) interprets the T-scores as follows: Above -1 Normal bone density Between -1 and -2.5 Osteopenia Equal to / or below -2.5 Osteoporosis As a practical clinical guideline, osteopenia may be graded as follows: Mild -1 through -1.5 Moderate -1.6 through -2.0 Severe -2.1 through -2.4 The Z-score is the number of standard deviations above or below age-matched controls. A Z-score of less than -1.5 would be considered abnormal. References: 1. NIH Osteoporosis and Related Bone Diseases http://www.osteo.org 2. International Society for Clinical Densitometry http://www.iscd.org 3. National Osteoporosis Foundation http://www.nof.org Electronically Signed: Augusto Johnston MD at 16:53 EDT , Service support ,
== END | disposition home or self-care (01) ==
LOC: OPBD 10:53
PROVIDERS: PCP Nurse Practitioner; Referring Provider Nurse Practitioner; Visit Provider Nurse Practitioner
DX: M81.0 Age-related osteoporosis without current pathological fracture (principal); Z12.31 Encounter for screening mammogram for malignant neoplasm of breast
CPT/HCPCS: 77063; 77067; 77080

== ENCOUNTER → 2021-02-05 | Outpatient (CLI) | payer OTHER, SELFPAY ==
[2018-04-20 10:04] VITALS: BMI 34.0
[2021-02-08 15:50] LABS: HPV Reflexed? NOT INDICATED
== END | disposition home or self-care (01) ==
LOC: LABSPEC 16:00
PROVIDERS: PCP Nurse Practitioner; Visit Provider Nurse Practitioner
DX: Z01.419 Encounter for gynecological examination (general) (routine) without abnormal findings (principal)
CPT/HCPCS: 88175; G0145

== ENCOUNTER → 2021-03-05 07:28 | Outpatient (CLI) | payer OTHER, SELFPAY ==
--- NOTE | 2021-03-05 07:31 | BI_ITS ---
MAMMOGRAPHY - BILATERAL SCREENING 3-D TOMOSYNTHESIS REASON FOR EXAM: Female, 60 years old. SCREENING PERTINENT HISTORY: No significant family history. TECHNIQUE: 2-D mammograms and 3-D Tomosynthesis of the breast (s) were performed. CAD was performed. COMPARISON: 01/17/2020 FINDINGS: The breast composition is heterogeneously dense that can obscure small breast masses. Scattered benign calcifications are seen. No dense spiculated masses or suspicious microcalcifications are identified. No architectural distortion is identified. There is no skin thickening or retraction. There has been no significant change since the prior study. BI/SCRN MAMM (CAD)W/DAVION BILAT IMPRESSION: No mammographic signs of malignancy. Routine yearly mammograms recommended. ASSESSMENT CATEGORY: BIRADS Category 1: Negative. A letter regarding these results will be sent to the patient by the facility within 30 days. FOLLOW UP RECOMMENDATION: Yearly follow up mammogram recommended. (A) Approximately 10% of breast cancers are not detected by mammography. A normal mammogram should not delay biopsy of a clinically suspicious abnormality. Electronically Signed: Ziyad Arreola MD at 9:20 EDT Tel , Service support ,
== END ==
PROVIDERS: PCP Nurse Practitioner; Referring Provider Nurse Practitioner; Visit Provider Nurse Practitioner
DX: Z12.31 Encounter for screening mammogram for malignant neoplasm of breast (principal)
CPT/HCPCS: 77063; 77067

== ENCOUNTER 2021-09-28 07:57 | Outpatient (CLI) | payer OTHER, SELFPAY ==
--- NOTE | 2021-09-28 08:04 | US_ITS ---
STUDY: ABDOMINAL ULTRASOUND - RIGHT UPPER QUADRANT REASON FOR VISIT: Female, 61 years old ELEVATED BLOOD CALCIUM TECHNIQUE: Ultrasound evaluation of the right upper quadrant was performed with real-time and static rider-scale imaging. TECHNICAL QUALITY: Adequate. COMPARISON: None. FINDINGS: Liver: The liver measures 17.0 cm. There is increased echogenicity consistent with fatty infiltration. The bile ducts are within normal limits. There is hepatic color flow. The direction of portal flow is hepatopetal. There is no demonstrated mass lesion. Gallbladder: Normal distended gallbladder. The gallbladder wall measures 2 mm. There is a negative sonographic Tong''s sign. There is no pericholecystic fluid. There are no gallstones. Common Bile Duct (C.B.D.): The common bile duct measures 4 mm. Pancreas: Normal size of the head, body and tail of the pancreas. There is normal echogenicity of the pancreas. There is no demonstrated pancreatic mass or cyst. Right Kidney: Normal size of the right kidney. The right kidney measures 10.4 cm. Normal renal cortex. The right cortex measures 1.7 cm. There is no demonstrated renal mass or cyst. There is no right hydronephrosis. US/Abdomen Limited IMPRESSION: Fatty infiltration of the liver. Electronically Signed: Ziyad Arreola MD at 8:50 EDT ,
--- NOTE | 2021-09-28 08:20 | US_ITS ---
STUDY: ABDOMINAL ULTRASOUND REASON FOR EXAM: Female, 61 years old. ELEVATED MCV TECHNIQUE: Transabdominal ultrasound was performed with real-time and static rider scale imaging. TECHNICAL QUALITY: Adequate. COMPARISON: None. FINDINGS: Spleen: Normal size of the spleen. The spleen measures 11.1 cm. Left Kidney: Normal size of the left kidney. The left kidney measures 10.0 cm. Normal renal cortex. The left cortex measures 1.5 cm. There is no demonstrated renal mass or cyst. There is no left hydronephrosis. US/Spleen IMPRESSION: Normal abdominal ultrasound examination. Electronically Signed: Ziyad Arreola MD at 13:12 EDT ,
== END 2021-09-28 23:59 | disposition home or self-care (01) ==
PROVIDERS: PCP Nurse Practitioner; Referring Provider Nurse Practitioner; Visit Provider Nurse Practitioner
DX: E83.52 Hypercalcemia (principal); R71.8 Other abnormality of red blood cells
CPT/HCPCS: 76705

== ENCOUNTER → 2021-12-25 | Outpatient (CLI) | payer OTHER, SELFPAY ==
[2021-12-25 16:12] LABS: Absolute Lymphocyte Count 1.16 X10^3/uL (0.83-4.51); Erythrocyte Sedimentation Rate 15 mm/hr (0-30); Hematocrit 40.4 % (37-47); Hemoglobin 14.7 g/dL (12.0-15.0); Lymphocyte # 1.16 X10^3/ul (0.83-4.51); Lymphocyte % 14.9 % (19-41); Mean Corp Hgb Conc 36.4 g/dL (32-36); Mean Corpuscular Hgb 37.6 pg (27.0-32.0); Mean Corpuscular Volume 103.3 fL (81-99); Mean Platelet Vol. 8.4 fl (6.2-12.0); Monocyte# 0.59 X10^3/uL; Monocyte% 7.6 % (0-10); NRBC Flagged by Analyzer 0 % (0-5); Neutrophil # 5.98 X10^3/uL (2.7-7.7); Neutrophil % 77.1 % (47-70); Platelet Count 279 K/mm3 (150-450); RBC Distribution Width CV 12.2 % (11.6-14.6); RBC Distribution Width SD 46.4 fl (35.1-43.9); Red Blood Count 3.91 M/mm3 (4.2-5.4); White Blood Count 7.8 K/mm3 (4.4-11.0)
[2021-12-25 16:18] LABS: Hemoglobin A1c 5.2 % (3.8-5.6); Prothrombin Time (Protime)PT. 12.5 SECONDS (11.7-14.9)
[2021-12-25 16:39] LABS: ALB/GLOB Ratio 1.2 RATIO (0.9-2.4); AST(SGOT) 52 U/L (15-37); Alanine Aminotransfer ALT/SGPT 107 U/L (13-56); Albumin, Serum 4.5 g/dL (3.2-5.0); Alkaline Phosphatase 117 U/L (45-117); Anion Gap 8 (5-15); BUN 8 mg/dL (7-18); BUN/Creat Ratio 10.5 RATIO (10-20); CRP 3.63 mg/L (0.0-3.0); Calcium,Total 10.2 mg/dL (8.5-10.1); Chloride 102 mmol/L (98-107); Creatinine, Serum 0.76 mg/dL (0.55-1.02); EST Glomerular Filtration Rate 82 mL/min (>60); Est Glom Filt Rate - Afr Amer 99 mL/min (>60); Ferritin 181 ng/mL (8-252); Globulin 3.6 g/dL (2.2-4.2); Glucose 112 mg/dL (74-106); LDH 145 U/L (84-246); Potassium 3.5 mmol/L (3.5-5.1); Protein, Total 8.1 g/dL (6.4-8.2); Sodium Level 135 mmol/L (136-145)
[2021-12-25 17:10] LABS: HIV - WCH Non-Reactive (Nonreactive)
[2021-12-27 13:08] LABS: Anti-Centromere B Ab <0.2 AI (0.0-0.9); Anti-Chromatin <0.2 AI (0.0-0.9); Anti-Jo <0.2 AI (0.0-0.9); Anti-Scleroderma-70 AB <0.2 AI (0.0-0.9); RNP Ab 0.2 AI (0.0-0.9); SJOGREN'S Anti-SS-A test < 0.2 AI (0.0-0.9); SJOGREN'S Anti-SS-B test < 0.2 AI (0.0-0.9); Smith Ab <0.2 AI (0.0-0.9)
[2021-12-27 13:20] LABS: Anti-Mitochondrial AB <20.0 Units (0.0-20.0); Anti-dsDNA Ab 2 IU/mL (0-9)
[2021-12-28 05:07] LABS: Angiotensin Convert Enzyme 34 U/L (14-82); Ceruloplasmin 29.2 mg/dL (19.0-39.0); Cytoplasmic Ab (C-ANCA) <1:20 titer (Neg:<1:20); HEPATITIS B SURFACE AG Negative (Negative); Hep C Antibodies 0.1 s/co ratio (0.0-0.9); Hepatitis A IgM Antibody Negative (Negative); Hepatitis B Core AB IgM Negative (Negative)
[2021-12-28 08:42] LABS: AFP, Tumor Marker 5.1 ng/mL (0.0-9.2); Anti-Smooth Muscle ABS 8 Units (0-19); Copper, Serum or Plasma 123 ug/dL (80-158); Haptoglobin 113 mg/dL (37-355); Perinuclear Ab (P-ANCA) <1:20 titer (Neg:<1:20)
== END | disposition home or self-care (01) ==
LOC: LAB 15:39
PROVIDERS: PCP Nurse Practitioner Family; Referring Provider Internal Medicine Gastroenterology; Visit Provider Internal Medicine Gastroenterology
DX: K76.0 Fatty (change of) liver, not elsewhere classified (principal); K59.00 Constipation, unspecified
CPT/HCPCS: 36415; 80053; 80074; 82105; 82140; 82164; 82390; 82525; 82728; 83010; 83036; 83516; 83615; 85025; 85610; 85652; 86140; 86225; 86235; 86256; 86703

== ENCOUNTER → 2022-01-21 | Outpatient (CLI) | payer OTHER, SELFPAY ==
--- NOTE | 2022-01-21 09:25 | US_ITS ---
STUDY: ABDOMINAL ULTRASOUND - ELASTOGRAPHY REASON FOR VISIT: Female, 61 years old. Fatty infiltration of the liver. TECHNIQUE: Liver stiffness measurements were obtained on a [employer] RS 85 ultrasound machine using a CA 1-7 probe following the SRU guidelines. 3 measurements were obtained using a 2-D-SWE method. The IQR/M was 22% suggesting a quality data set. TECHNICAL QUALITY: Adequate. COMPARISON: Comparison is made with prior ultrasound done earlier today. FINDINGS: Liver: Mild hepatomegaly and fatty infiltration of the liver. Median liver stiffness measured 9.3 kPa. US/Elastography Parenchyma/Organ IMPRESSION: Liver stiffness measures 9.3 kPa compatible with F2-F3 (Mild to moderate liver fibrosis) Metavir score. Electronically Signed: Jax Allen MD at 10:54 EDT ,
--- NOTE | 2022-01-21 09:29 | US_ITS ---
STUDY: ABDOMINAL ULTRASOUND - RIGHT UPPER QUADRANT REASON FOR VISIT: Female, 61 years old FATTY LIVER TECHNIQUE: Ultrasound evaluation of the right upper quadrant was performed with real-time and static rider-scale imaging. TECHNICAL QUALITY: Adequate. COMPARISON: Comparison is made with prior study dated 09/28/2021. FINDINGS: Liver: The liver is mildly enlarged and measures 17.9 cm. There is increased echogenicity consistent with fatty infiltration. The bile ducts are within normal limits. There is hepatic color flow. The direction of portal flow is hepatopetal. There is no demonstrated mass lesion. Gallbladder: Normal distended gallbladder. The gallbladder wall measures 2.6 mm. There is a negative sonographic Tong''s sign. There is no pericholecystic fluid. There are no gallstones. Common Bile Duct (C.B.D.): The common bile duct measures 2.5 mm. Pancreas: Normal size of the head, body and tail of the pancreas. There is normal echogenicity of the pancreas. There is no demonstrated pancreatic mass or cyst. Right Kidney: Normal size of the right kidney. The right kidney measures 10.9 cm x 5.6 cm x 4.5 cm. Normal renal cortex. The right cortex measures 1.7 cm. Simple right renal cyst measuring 1.2 cm x 1.3 cm x 1.1 cm. There is no right hydronephrosis. US/Abdomen Limited IMPRESSION: Mild hepatomegaly and fatty infiltration of the liver. 1.2 cm x 1.3 cm x 1.1 cm right renal cyst. Electronically Signed: Jax Allen MD at 10:52 EDT ,
== END | disposition home or self-care (01) ==
LOC: US 09:22
PROVIDERS: PCP Nurse Practitioner Family; Referring Provider Internal Medicine Gastroenterology; Visit Provider Internal Medicine Gastroenterology
DX: K76.0 Fatty (change of) liver, not elsewhere classified (principal); K59.00 Constipation, unspecified
CPT/HCPCS: 76705; 76981

== ENCOUNTER → 2022-03-19 | Outpatient (CLI) | payer OTHER, SELFPAY ==
[2022-03-19 13:26] LABS: Absolute Lymphocyte Count 1.67 X10^3/uL (0.83-4.51); Absolute Neutrophil Count 4.9 X10^3/uL (2.0-7.7); Hematocrit 43.2 % (37-47); Hemoglobin 15.2 g/dL (12.0-15.0); Lymphocyte # 1.67 X10^3/ul (0.83-4.51); Lymphocyte % 23.1 % (19-41); Mean Corp Hgb Conc 35.2 g/dL (32-36); Mean Corpuscular Hgb 37.5 pg (27.0-32.0); Mean Corpuscular Volume 106.7 fL (81-99); Mean Platelet Vol. 8.4 fl (6.2-12.0); Monocyte# 0.59 X10^3/uL; Monocyte% 8.2 % (0-10); NRBC Flagged by Analyzer 0 % (0-5); Neutrophil # 4.94 X10^3/uL (2.7-7.7); Neutrophil % 68.4 % (47-70); Platelet Count 319 K/mm3 (150-450); RBC Distribution Width CV 11.9 % (11.6-14.6); RBC Distribution Width SD 47.4 fl (35.1-43.9); Red Blood Count 4.05 M/mm3 (4.2-5.4); White Blood Count 7.2 K/mm3 (4.4-11.0)
[2022-03-19 13:46] LABS: ALB/GLOB Ratio 1.1 RATIO (0.9-2.4); AST(SGOT) 84 U/L (15-37); Alanine Aminotransfer ALT/SGPT 132 U/L (13-56); Albumin, Serum 4.2 g/dL (3.2-5.0); Alkaline Phosphatase 116 U/L (45-117); Anion Gap 5 (5-15); BUN 5 mg/dL (7-18); Calcium,Total 9.6 mg/dL (8.5-10.1); Chloride 101 mmol/L (98-107); Creatinine, Serum 0.63 mg/dL (0.55-1.02); EST Glomerular Filtration Rate 102 mL/min (>60); Est Glom Filt Rate - Afr Amer 124 mL/min (>60); Globulin 3.9 g/dL (2.2-4.2); Glucose 102 mg/dL (74-106); Potassium 4.1 mmol/L (3.5-5.1); Protein, Total 8.1 g/dL (6.4-8.2); Sodium Level 136 mmol/L (136-145); Thyroid Stim Hormone (TSH) 2.13 uIU/mL (0.358-3.74)
== END | disposition home or self-care (01) ==
LOC: LAB 11:48
PROVIDERS: PCP Nurse Practitioner Family; Visit Provider Nurse Practitioner Family
DX: D53.9 Nutritional anemia, unspecified (principal); F41.9 Anxiety disorder, unspecified; E03.9 Hypothyroidism, unspecified
CPT/HCPCS: 36415; 80053; 84443; 85025

== ENCOUNTER → 2022-04-22 | Outpatient (CLI) | payer OTHER, SELFPAY ==
--- NOTE | 2022-04-22 07:26 | BI_ITS ---
MAMMOGRAPHY - BILATERAL SCREENING REASON FOR EXAM: Female, 61 years old. Routine annual screening examination. PERTINENT HISTORY: Non-contributory. TECHNIQUE: Digital bilateral breast davion (3D mammographic acquisition) in the CC and MLO projections. 2-D mediolateral oblique (MLO) and craniocaudad (CC) views of both breasts were obtained. CAD: Full Field Digital Mammography with Computer Added Detection was performed. COMPARISON: Comparison is made with prior examination dated 03/05/2021 and 01/17/2020. FINDINGS: Breast Composition: The breasts are heterogeneously dense, which may obscure small masses. There are no dominant masses or suspicious calcifications. Stable benign-appearing bilateral axillary lymph nodes. No other significant abnormalities are identified. There has been no significant change since the prior study. BI/SCRN MAMM (CAD)W/DAVION BILAT IMPRESSION: Stable bilateral screening mammogram. Yearly follow-up mammogram recommended. (A) ASSESSMENT CATEGORY: BIRADS Category 2: Benign. A letter regarding these results will be sent to the patient by the facility within 30 days. Approximately 10% of breast cancers are not detected by mammography. A normal mammogram should not delay biopsy of a clinically suspicious abnormality. [id number] Electronically Signed: Jax Allen MD at 9:10 EDT ,
--- NOTE | 2022-04-22 08:05 | BD_ITS ---
STUDY: DUAL ENERGY X-RAY ABSORPTIOMETRY / DXA REASON FOR EXAM: Female, 61 years old. [id number]. TECHNIQUE: Bone Mineral Density (BMD) measurements of lumbar spine and bilateral hips were obtained. COMPARISON: Comparison is made with prior study dated 01/17/2020. FINDINGS: Lumbar Spine (L1-L4): g/cm2 (0.805) / T-score (-2.1) / Z-score (-0.5) Findings are suggestive of osteopenia with a high fracture risk. Left Femur Total: g/cm2 (0.823) / T-score (-1.0) / Z-score (0.1) Left Femoral Neck: g/cm2 (0.6-0) / T-score (-2.1) / Z-score (-0.6) Right Femur Total: g/cm2 (0.795) / T-score (-1.2) / Z-score (-0.1) Right Femoral Neck: g/cm2 (0.571) / T-score (-2.5) / Z-score (-1.1) The T-Scores on the most recent prior examination were: Lumbar Spine (L1-L4): There has been improvement of bone density since the previous examination. Left Femur Total: which represents an improvement of 4.3%. Right Femur Total: which represents an improvement of 1.6%. BD/Dexa Bone Density Study IMPRESSION: The patient is considered osteopenic as outlined below according to World Mehdi Organization (WHO) criteria with a high fracture risk. There has been improvement of bone density since the previous examination. Reference Information: The T-score is the number of standard deviations above or below the standard which is normal for young adults at their peak bone mineral density. The World Health Organization (WHO) interprets the T-scores as follows: Above -1 Normal bone density Between -1 and -2.5 Osteopenia Equal to / or below -2.5 Osteoporosis As a practical clinical guideline, osteopenia may be graded as follows: Mild -1 through -1.5 Moderate -1.6 through -2.0 Severe -2.1 through -2.4 The Z-score is the number of standard deviations above or below age-matched controls. A Z-score of less than -1.5 would be considered abnormal. References: 1. NIH Osteoporosis and Related Bone Diseases www osteo.org 2. International Society for Clinical Densitometry www iscd.org 3. National Osteoporosis Foundation www nof.org Electronically Signed: Jax Allen MD at 13:16 EDT ,
== END | disposition home or self-care (01) ==
LOC: OPBI 07:23
PROVIDERS: PCP Nurse Practitioner Family; Referring Provider Nurse Practitioner Family; Visit Provider Nurse Practitioner Family
DX: Z12.31 Encounter for screening mammogram for malignant neoplasm of breast (principal); M81.0 Age-related osteoporosis without current pathological fracture; M85.80 Other specified disorders of bone density and structure, unspecified site
CPT/HCPCS: 77063; 77067; 77080

== ENCOUNTER 2022-09-18 11:33 | Observation (INO) | payer OTHER, SELFPAY ==
[2022-09-18] VITALS (10 sets, daily range): BP systolic 129–181; BP diastolic 78–105; PULSE 76–116; RESP 14–20; TEMP 36.3–36.7; O2SAT 94–100; BMI 26.5; BMI 25.7; BMI 28.1
--- NOTE | 2022-09-18 11:45 | ED.RN ---
DR. DESAI TOOK PHYSICIANS REPORT FROM DR. VARGAS. PER DR. DESAI, NO STROKE ALERT ON TRIAGE.
[2022-09-18 12:00] LABS: Bedside Glucose 117 mg/dL (74-106)
--- NOTE | 2022-09-18 12:05 | RAD_ITS ---
HISTORY: mediastinal eval. TECHNIQUE: XR Chest 1 View. COMPARISON: 10/02/2021. FINDINGS: CARDIOMEDIASTINAL BORDERS: Cardiac silhouette within normal limits in size. Mediastinal contour unremarkable and unchanged with mild calcification of the aortic knob. LUNGS: Radiographically clear. PLEURA: No pleural effusion or pneumothorax seen. OSSEOUS STRUCTURES: Unremarkable. RAD/Chest 1 View IMPRESSION: No acute cardiopulmonary process identified. Electronically Signed: Trisha Beach MD at 12:56 EDT ,
--- NOTE | 2022-09-18 12:05 | EKG12_ITS ---
Test Reason : VISION PROBLEM Blood Pressure : / mmHG Vent. Rate : 082 BPM Atrial Rate : 082 BPM P-R Int : 150 ms QRS Dur : 090 ms QT Int : 366 ms P-R-T Axes : 017 044 053 degrees QTc Int : 427 ms Normal sinus rhythm Normal ECG Confirmed by DIETER DURAN, PETRONA ([id number]), tape editor GHADA PINEDA ([id number]) on 09/22/2022 12:15:53 P M Referred By: Confirmed By:RUTH ANN GARCIAS MD
--- NOTE | 2022-09-18 12:06 | CT_ITS ---
We are attempting to reach an attending provider to discuss findings. An addendum with communication details will be sent when the communication is complete. HISTORY: L eye vision loss. TECHNIQUE: Noncontrast axial images were obtained of the brain. Subsequently, routine carotid CT angiogram protocol was performed. In addition, images were obtained of the [place]. NASCET criteria using the distal ICAs for comparison were used for evaluation of stenoses. 3D reconstructions were reviewed. A radiation dose optimization technique was used for this scan. IV Contrast dosage and agent: 100 mL Isovue 370. 2338 images. COMPARISON: None. FINDINGS: BRAIN PARENCHYMA: Chronic small vessel ischemic gliosis noted. No acute intra-axial hemorrhage identified. Scattered small cerebral calcifications bilaterally. Chronic appearing lacunar infarct in the right caudate. CSF SPACES: No significant midline shift or mass effect. Cerebral ventricles, cortical sulci, and other extra-axial CSF spaces within normal limits in size for patient age.No acute extra-axial hemorrhage identified. OTHER: Intact calvarium.Clear paranasal sinuses and mastoid air cells. Symmetric orbital contents. ASPECTS Score for Acute Strokes: 10 AORTIC ARCH AND BRANCHES: Mild calcified plaque of the aortic arch. 40-50% stenosis at the origin of the left subclavian artery. RIGHT CCA: Calcified plaque at the bifurcation with less than 50% stenosis. RIGHT ICA: Calcified plaque with less than 50% stenosis proximally. LEFT CCA: Approximately 50% stenosis at the bifurcation. LEFT ICA: Calcified plaque with approximately 70% stenosis at the origin. RIGHT VERTEBRAL ARTERY: No occlusion, significant stenosis or dissection. LEFT VERTEBRAL ARTERY: No occlusion, significant stenosis or dissection. Calcified plaque proximally less than 50% stenosis. OTHER: Emphysema in the lung apices. Degenerative changes of the cervical spine. ICAs: No significant stenosis at the intracranial/visualized segments. Mild calcified plaque at both carotid siphons. ACAs: No significant stenosis at the visualized segments. MCAs: No significant stenosis at the visualized segments. coil former: No significant stenosis at the visualized segments. Left origin. BASILAR ARTERY: No significant stenosis. VERTEBRAL ARTERIES: No significant stenosis at the intradural/visualized segments. Hypoplastic right and dominant left vertebral arteries. No evidence of intracranial aneurysm or vascular malformation. CT/STROKE CTA Head AND Neck W/Con IMPRESSION: No acute intracranial process identified. Chronic involutional and white matter changes. Scattered small intracranial calcifications which can be seen with neurocysticercosis or sequela of other prior infection. No evidence for large vessel occlusion the [place]. Severe stenosis at the origin of the left internal carotid artery in the neck. Electronically Signed: Trisha Beach MD at 13:36 EDT ,
--- NOTE | 2022-09-18 12:07 | EDS_ITS ---
HPI History of Present Illness Chief Complaint: Vision Prob Informant: patient Narrative Narrative: Acutely at about 0810 this morning, patient had trouble seeing out of the nasal visual field in her left eye. This quickly spread to her entire eye in a circular fashion and then her vision suddenly cut out and was gone and has been gone ever since. She has had a mild bifrontal headache since then, she takes daily aspirin 81 mg and took 2 more prior to going to her deputy head, who diagnosed her with a left eye central retinal arterial occlusion after dilating both of her eyes. She can see normally out of the right eye. No history of stroke or heart attack. She denies any other focal neurologic symptoms except for feeling a little dizzy without any nausea or vomiting or tinnitus/earache. Chronic cough no worse than usual, history of COPD and is currently a smoker. Patient presents here around noon, after being sent by her deputy head directly to the ED. [facility] Medical History Abdominal pain Abnormal alkaline phosphatase test Acute bronchitis with COPD Constipation COPD (chronic obstructive pulmonary disease) Depression Difficulty swallowing Esophageal dilatation Fatty liver Heartburn HTN (hypertension) Hypercholesteremia Hyponatremia Hypothyroidism Obesity (BMI 30.0-34.9) Osteoporosis Pneumonia Thyroglossal duct cyst Tobacco use Vitamin D deficiency Home Medications albuterol sulfate 90 mcg/actuation aerosol inhaler 2 puff inhalation Q4H PRN PRN Sob &/Or Wheezing 09/01/17 [History Last Taken Unknown] budesonide-formoterol HFA 160 mcg-4.5 mcg/actuation aerosol inhaler 2 puff inhalation BID copd 09/01/17 [History Last Taken Unknown] clonidine HCl 0.1 mg tablet 0.1 mg PO BID blood pressure 09/01/17 [History Last Taken Unknown] diltiazem HCl 180 mg capsule,extended release 24 hr 180 mg PO DAILY heart/blood pressure 09/01/17 [History Last Taken Unknown] fish oil-dha-epa 1,200 mg-144 mg-216 mg capsule 1 ea PO DAILY supplement 09/01/17 [History Last Taken Unknown] losartan 100 mg tablet 100 mg PO DAILY blood pressure 09/01/17 [History Last Taken Unknown] albuterol sulfate 2.5 mg/3 mL (0.083 %) solution for nebulization 2.5 mg (3 mL) inhalation Q2H PRN PRN dyspnea, wheezing ##1 09/04/17 [Rx Last Taken Unknown] ipratropium 0.5 mg-albuterol 3 mg (2.5 mg base)/3 mL nebulization soln 3 ml inhalation Q6H ##1 09/04/17 [Rx Last Taken Unknown] nebulizers #1 ea 09/04/17 [Rx Last Taken Unknown] umeclidinium 62.5 mcg/actuation blister powder for inhalation (Incruse Ellipta) 1 inh inhalation QDAY #30 ea 10/22/17 [Rx Last Taken Unknown] cholecalciferol (vitamin D3) 25 mcg (1,000 unit) capsule 1,000 unit PO DAILY 04/20/18 [History Last Taken Unknown] fluticasone propionate 50 mcg/actuation nasal spray,suspension (Flonase Allergy Relief) 2 spray intranasal QDAY #1 device 04/20/18 [Rx Last Taken Unknown] ibandronate 150 mg tablet (Boniva) 150 mg PO QMONTH 04/20/18 [History Last Taken Unknown] levothyroxine 75 mcg tablet 75 mcg PO DAILY 04/20/18 [History Last Taken Unknown] multivitamin (Multiple Vitamins tablet) 1 tab PO DAILY 04/20/18 [History Last Taken Unknown] denosumab 60 mg/mL subcutaneous syringe (Prolia) 60 mg subcut [id number] 10/07/21 [History Last Taken Unknown] esomeprazole magnesium 40 mg capsule,delayed release (Nexium) 40 mg PO DAILY 10/07/21 [History Last Taken Unknown] rosuvastatin 20 mg tablet 20 mg PO DAILY 10/07/21 [History Last Taken Unknown] venlafaxine 75 mg capsule,extended release 24 hr See Rx Instructions .Route .COMPLEX #30 caps 04/01/22 [Rx Last Taken Unknown] Allergy/AdvReac Type Severity Reaction Status Date / Time amlodipine Allergy Swelling Verified 09/18/22 11:36 hydrochlorothiazide Allergy Other Verified 09/18/22 11:36 lisinopril Allergy cough Verified 09/18/22 11:36 Penicillins Allergy Rash Verified 09/18/22 11:36 Family History Mother Hypertension PVD (peripheral vascular disease) Thyroid disorder Father Diabetes Esophageal cancer Surgical History H/O section H/O hernia repair History of thyroglossal duct cyst removal Social History Smoking Status: Current every day smoker tobacco type: cigarettes Tobacco: How many years used: 35 second hand exposure: Yes alcohol intake: current alcohol intake frequency: holidays/special occasions only substance use type: does not use caffeine: Yes Type: coffee what type of physical activity do you participate in: walking frequency: 3-4 times per week ROS ROS ED Constitutional Constitutional ED: Denies chills or fever(s) Eyes Eyes: Reports change in vision left; Denies diplopia ENT ENT ED: Denies rhinorrhea or sore throat Cardiovascular Cardiovascular: Denies chest pain or palpitations Respiratory/Chest Respiratory/Chest: Denies cough or dyspnea Gastrointestinal Gastrointestinal: Denies abdominal pain, diarrhea, nausea or vomiting Genitourinary Genitourinary ED: Denies dysuria or hematuria Musculoskeletal Musculoskeletal: Denies back pain or neck pain Integumentary Denies abscess or rash Neurologic Neurologic: Reports as per HPI, headache(s) and loss of vision; Denies paresthesias or weakness Psychiatric Psychiatric: Denies anxiety or suicidal thoughts EXAM Physical Exam Const Vital Signs: 09/18/22 11:34 09/18/22 11:44 09/18/22 12:14 Temperature 97.8 F Temperature Source Temporal Pulse Rate 116 H 94 Respiratory Rate 18 16 Blood Pressure 181/105 H 169/99 H Blood Pressure Mean 130 122 Pulse Ox 100 98 94 Oxygen Delivery Method Room Air Room Air Room Air 09/18/22 12:40 09/18/22 13:05 09/18/22 13:57 Temperature Temperature Source Pulse Rate 90 79 76 Respiratory Rate 14 14 14 Blood Pressure 136/78 H 129/80 H 132/78 H Blood Pressure Mean 97 96 96 Pulse Ox 94 96 96 Oxygen Delivery Method Room Air Room Air Room Air 09/18/22 14:32 Temperature Temperature Source Pulse Rate 86 Respiratory Rate 19 H Blood Pressure 147/83 H Blood Pressure Mean 104 Pulse Ox 96 Oxygen Delivery Method Room Air Positive well nourished and well developed General Appearance ED: well developed and NAD HEENT Reports moist mucous membranes normocephalic and atraumatic Eyes PERRL and EOMs intact bilaterally Eyes Narrative: Complete loss of vision throughout the left eye, patient can detect light somewhat. Normal visual field exam throughout the right eye. Neck full ROM and supple Resp normal respiratory effort and clear to auscultation bilaterally Cardio regular rate, regular rhythm and no murmurs GI non-tender and non-distended Auscultation: normoactive bowel sounds Palpation: soft Back/Spine no CVA tenderness General Back: other FROM Extremity normal to inspection General Extremety ED: Negative for edema, pulses abnormal or tenderness General Extremity: Negative for edema or pulses abnormal Neuro oriented x3, CN's II-XII intact bilaterally and no sensory deficits noted Neuro Narrative: Normal speech. Normal ekhovo-aq-ksvo and oqng-tu-buil bilaterally. Normal gait. NIHSS 0. Sensorium / Orientation: awake and alert Motor Exam: strength 5/5 throughout Psych mental status grossly normal Skin no rashes or lesions noted and no wounds MDM MDM MDM Narrative Medical decision making narrative: Stroke work-up obtained, and I discussed emergently with [facility] stroke neurology, they agree that we do not need to make the patient a stroke alert since tPA not indicated for this single deficit with complete loss of vision and no other deficits right now, and routine thrombectomies are not generally performed for these. We did do CT angiography, I reviewed these and the regular CT images which showed no acute hemorrhage, she has plaque in both internal carotids with more severe stenosis on the left. My interpretation of the CT agrees with that of the radiologist. Blood pressure initially 181/105, we did not specifically treat this but on reevaluation 132/78. Plan is for admission for further stroke work-up as agreed by [facility] stroke neurology. Per Dr. Moore ophthalmology, we also added ESR and CRP to the patient's labs, in order to hopefully rule out giant cell arteritis. Those 2 test both came back within normal limits. Lab Data Attestation: I reviewed the patient's lab results. Labs: Laboratory Results - last 24 hr 09/18/22 09/18/22 09/18/22 11:40 11:40 11:40 WBC 7.8 RBC 3.94 L Hgb 15.1 H Hct 42.9 MCV 108.9 H MCH 38.3 H MCHC 35.2 RDW Std Deviation 49.5 H RDW Coeff of Alex 12.3 Plt Count 301 MPV 8.5 Immature Gran % (Auto) 0.400 Neut % (Auto) 74.9 H Lymph % (Auto) 18.2 L [place] % (Auto) 6.4 Eos % (Auto) 0.0 Baso % (Auto) 0.1 Absolute Neuts (auto) 5.8 Absolute Lymphs (auto) 1.42 Nucleated RBC % 0 ESR 10 PT 13.0 INR 1.0 APTT 27.2 Sodium 133 L Potassium 4.1 Chloride 99 Carbon Dioxide 28.0 Anion Gap 6 BUN 6 L Creatinine 0.79 Estim Creat Clear Calc 57.65 Est GFR (MDRD) Af Amer 95 Est GFR (MDRD) Non-Af 78 BUN/Creatinine Ratio 7.6 L Glucose 125 H Calcium 10.6 H Troponin I High Sens 6 C-React Prot Ext Range < 2.90 POC Glucose 09/18/22 11:41 WBC RBC Hgb Hct MCV MCH MCHC RDW Std Deviation RDW Coeff of Alex Plt Count MPV Immature Gran % (Auto) Neut % (Auto) Lymph % (Auto) [place] % (Auto) Eos % (Auto) Baso % (Auto) Absolute Neuts (auto) Absolute Lymphs (auto) Nucleated RBC % ESR PT INR APTT Sodium Potassium Chloride Carbon Dioxide Anion Gap BUN Creatinine Estim Creat Clear Calc Est GFR (MDRD) Af Amer Est GFR (MDRD) Non-Af BUN/Creatinine Ratio Glucose Calcium Troponin I High Sens C-React Prot Ext Range POC Glucose 117 H Radiography Diagnostic Testing: Clinical Impression(s) from Imaging Studies Chest X-Ray 09/18/22 12:05 IMPRESSION: No acute cardiopulmonary process identified. Electronically Signed: Trisha Beach MD at 12:56 EDT , Head/Neck CTA 09/18/22 12:06 IMPRESSION: No acute intracranial process identified. Chronic involutional and white matter changes. Scattered small intracranial calcifications which can be seen with neurocysticercosis or sequela of other prior infection. No evidence for large vessel occlusion the [place]. Severe stenosis at the origin of the left internal carotid artery in the neck. Electronically Signed: Trisha Beach MD at 13:36 EDT , ADDENDUM: 09/18/22 1347 IMPRESSION: No acute intracranial process identified. Chronic involutional and white matter changes. Scattered small intracranial calcifications which can be seen with neurocysticercosis or sequela of other prior infection. No evidence for large vessel occlusion the [place]. Severe stenosis at the origin of the left internal carotid artery in the neck. N.B. : The above Results were Read Back by Trisha Beach MD to Bernardino Harvey MD, and understanding confirmed on 09/18/2022 13:40:47 (ET). Electronically Signed: Trisha Beach MD at 13:36 EDT , Rhythm Strip Rhythm Strip: Sinus Rhythm Rate: 80 Ectopy: None EKG Initial EKG: Attestation: I personally reviewed and interpreted this EKG as follows: Interpretation: Sinus Rhythm and No Acute Injury Pattern Comments: normal EKG Management Discussion w/another healthcare provider: Hospitalist, Sql Consultant ([facility] stroke neurology) and Radiologist Stroke Documentation Questions Stroke Team Activated: No (Discussed with stroke neurology [facility]; they agree patient not tPA candidate) Was Patient considered for Endovascular Intervention?: No-CTA negative, determined not to be an endovascular candidate IV Thrombolytic Administered: No Discharge Plan Dx/Rx/DC Orders Clinical Impression: Central retinal artery occlusion of left eye, Stenosis of left internal carotid artery Disposition Disposition: Acute Care Hospital [facility]
[2022-09-18 12:20] LABS: Erythrocyte Sedimentation Rate 10 mm/hr (0-30)
[2022-09-18 12:24] LABS: Absolute Lymphocyte Count 1.42 X10^3/uL (0.83-4.51); Absolute Neutrophil Count 5.8 X10^3/uL (2.0-7.7); Basophil# 0.01 X10^3/uL; Basophil% 0.1 % (0-1); Hematocrit 42.9 % (37-47); Hemoglobin 15.1 g/dL (12.0-15.0); Lymphocyte # 1.42 X10^3/ul (0.83-4.51); Lymphocyte % 18.2 % (19-41); Mean Corp Hgb Conc 35.2 g/dL (32-36); Mean Corpuscular Hgb 38.3 pg (27.0-32.0); Mean Corpuscular Volume 108.9 fL (81-99); Mean Platelet Vol. 8.5 fl (6.2-12.0); Monocyte% 6.4 % (0-10); NRBC Flagged by Analyzer 0 % (0-5); Neutrophil # 5.84 X10^3/uL (2.7-7.7); Neutrophil % 74.9 % (47-70); Platelet Count 301 K/mm3 (150-450); RBC Distribution Width CV 12.3 % (11.6-14.6); RBC Distribution Width SD 49.5 fl (35.1-43.9); Red Blood Count 3.94 M/mm3 (4.2-5.4); White Blood Count 7.8 K/mm3 (4.4-11.0)
[2022-09-18 12:27] LABS: Partial Thromboplast Time 27.2 Seconds (24.1-36.2)
[2022-09-18 12:37] LABS: Anion Gap 6 (5-15); BUN 6 mg/dL (7-18); BUN/Creat Ratio 7.6 RATIO (10-20); CRP < 2.90 mg/L (0.0-3.0); Calcium,Total 10.6 mg/dL (8.5-10.1); Chloride 99 mmol/L (98-107); Creatinine, Serum 0.79 mg/dL (0.55-1.02); EST Glomerular Filtration Rate 78 mL/min (>60); Est Glom Filt Rate - Afr Amer 95 mL/min (>60); Estimated Creatinine Clearance 57.65 ml/min; Glucose 125 mg/dL (74-106); Potassium 4.1 mmol/L (3.5-5.1); Sodium Level 133 mmol/L (136-145); Troponin-I HS 6 pg/mL (3.0-54.0)
--- NOTE | 2022-09-18 16:38 | CDU_ITS ---
Reason For Study: Carotid Artery Stenosis, Lt sided vision loss Rt. Velocities/BP Lt. Velocities/BP Prox CCA 61/10 cm/sec. Prox CCA 56/16 cm/sec. Mid CCA 53/16 cm/sec. Mid CCA 56/16 cm/sec. Dist CCA 49/14 cm/sec. Dist CCA 63/22 cm/sec. Prox ICA 46/17 cm/sec. Prox ICA 134/50 cm/sec. Mid ICA 69/25 cm/sec. Mid ICA 138/49 cm/sec. Dist ICA 75/33 cm/sec. Dist ICA 124/41 cm/sec. Rt. ICA/CCA = 1.4. Lt. ICA/CCA = 2.5. Prox ECA 94/23 cm/sec. Prox ECA 114/21 cm/sec. Rt. Vert. 21/6 cm/sec. Lt. Vert. 39/12 cm/sec. Right Extracranial There is heterogeneous, irregular atherosclerotic plaque noted in the right common carotid artery. There is heterogeneous, irregular atherosclerotic plaque noted in the right internal carotid artery. There is heterogeneous, irregular atherosclerotic plaque noted in the right external carotid artery. Antegrade flow is noted in the right vertebral artery. Left Extracranial There is heterogeneous, irregular atherosclerotic plaque noted in the left common carotid artery. The atherosclerotic plaque causes acoustic shadowing. There is heterogeneous, irregular atherosclerotic plaque noted in the left internal carotid artery. The atherosclerotic plaque causes acoustic shadowing. There is heterogeneous, irregular atherosclerotic plaque noted in the left external carotid artery. Antegrade flow is noted in the left vertebral artery. Procedure Carotid Duplex [id number]. This is a Carotid Duplex examination using B-mode, color flow and specral Doppler. Exam performed portable in patient room. VL/Carotid Duplex Ultrasound Interpretation Summary Mild (<50%) stenosis right extracranial internal carotid. Moderate (50-69%) stenosis left extracranial internal carotid. Patent and antegrade vertebrals bilaterally. Ordering Physician: Jacki Gupta Referring Physician: Kiarra Monk Performed By: Alvina Alston RDCS, RVT
--- NOTE | 2022-09-18 16:40 | PCM.HP.STD ---
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 In the ED hemoglobin was 15.1, sodium 133 with a creatinine of 0.79, glucose 125, calcium 10.6. Troponin 6 and BP 148/90 with a heart rate of 84 and 95% on room air. CTA head and neck demonstrated some small chronic white matter changes and scattered small intracranial calcification, it noted severe stenosis in the origin of the left internal carotid artery in the neck. [facility] neurology was called by ED physician and they recommended inpatient admission for carotid duplex and echo with bubble study and telemetry. Hospitalist consulted for admission. Patient reports she was in her usual health until this morning when she suddenly had left eye vision loss, has had a slight headache all over her head though more so on the left that waxes and wanes. Denies any right-sided vision changes, no numbness weakness or tingling anywhere. Has psoriasis on her legs which is unchanged, chronic cough with chronic shortness of breath on exertion due to COPD. Also has some chronic abdominal pain more so on the left side. She denied other concerns at this time. [facility] Medical History Abdominal pain Abnormal alkaline phosphatase test Acute bronchitis with COPD Constipation COPD (chronic obstructive pulmonary disease) Depression Difficulty swallowing Esophageal dilatation Fatty liver Heartburn HTN (hypertension) Hypercholesteremia Hyponatremia Hypothyroidism Obesity (BMI 30.0-34.9) Osteoporosis Pneumonia Thyroglossal duct cyst Tobacco use Vitamin D deficiency Home Medications albuterol sulfate 90 mcg/actuation aerosol inhaler 2 puff inhalation Q4H PRN PRN Sob &/Or Wheezing 09/01/17 [History Last Taken Unknown] budesonide-formoterol HFA 160 mcg-4.5 mcg/actuation aerosol inhaler 2 puff inhalation BID copd 09/01/17 [History Last Taken Unknown] clonidine HCl 0.1 mg tablet 0.1 mg PO BID blood pressure 09/01/17 [History Last Taken 09/18/22 09:00] diltiazem HCl 180 mg capsule,extended release 24 hr 180 mg PO DAILY heart/blood pressure 09/01/17 [History Last Taken 09/18/22 09:00] fish oil-dha-epa 1,200 mg-144 mg-216 mg capsule 1 ea PO DAILY supplement 09/01/17 [History Last Taken 09/17/22 13:00] losartan 100 mg tablet 100 mg PO DAILY blood pressure 09/01/17 [History Last Taken 09/18/22 09:00] albuterol sulfate 2.5 mg/3 mL (0.083 %) solution for nebulization 2.5 mg (3 mL) inhalation Q2H PRN PRN dyspnea, wheezing ##1 09/04/17 [Rx Last Taken Unknown] ipratropium 0.5 mg-albuterol 3 mg (2.5 mg base)/3 mL nebulization soln 3 ml inhalation Q6H ##1 09/04/17 [Rx Last Taken Unknown] nebulizers #1 ea 09/04/17 [Rx Last Taken Unknown] cholecalciferol (vitamin D3) 25 mcg (1,000 unit) capsule 1,000 unit PO DAILY health maintenance 04/20/18 [History Last Taken 09/17/22 09:00] levothyroxine 75 mcg tablet 75 mcg PO DAILY thyroid 04/20/18 [History Last Taken 09/18/22 06:00] multivitamin (Multiple Vitamins tablet) 1 tab PO DAILY health maintenance 04/20/18 [History Last Taken 09/18/22 13:00] denosumab 60 mg/mL subcutaneous syringe (Prolia) 60 mg subcut [id number] health maintenance 10/07/21 [History Last Taken Unknown] esomeprazole magnesium 40 mg capsule,delayed release (Nexium) 40 mg PO DAILY PRN health maintenance 10/07/21 [History Last Taken 09/11/22] rosuvastatin 20 mg tablet 20 mg PO DAILY cholesterol 10/07/21 [History Last Taken 09/16/22 21:00] fluticasone propionate 50 mcg/actuation nasal spray,suspension (Flonase Allergy Relief) 2 spray intranasal QDAY health maintenance 09/18/22 [History Last Taken 09/17/22 09:00] umeclidinium 62.5 mcg/actuation blister powder for inhalation (Incruse Ellipta) 1 inh inhalation QDAY health maintenance 09/18/22 [History Last Taken Unknown] venlafaxine 75 mg capsule,extended release 24 hr See Rx Instructions .Route .COMPLEX health maintenance 09/18/22 [History Last Taken 09/17/22 21:00] Allergy/AdvReac Type Severity Reaction Status Date / Time amlodipine Allergy Swelling Verified 09/18/22 11:36 hydrochlorothiazide Allergy Other Verified 09/18/22 11:36 lisinopril Allergy cough Verified 09/18/22 11:36 Penicillins Allergy Rash Verified 09/18/22 11:36 Family History Mother Hypertension PVD (peripheral vascular disease) Thyroid disorder Father Diabetes Esophageal cancer Surgical History H/O section H/O hernia repair History of thyroglossal duct cyst removal Social History Smoking Status: Current every day smoker tobacco type: cigarettes Tobacco: How many years used: 35 second hand exposure: Yes alcohol intake: current alcohol intake frequency: holidays/special occasions only substance use type: does not use caffeine: Yes Type: coffee what type of physical activity do you participate in: walking frequency: 3-4 times per week ROS ROS Narrative General: Denies fever/chills HENT: Waxing waning headache diffusely but more so on the left, denies stuffy nose, denies sore throat EYES: Left-sided vision loss Resp: Chronic cough and chronic shortness of breath on exertion Cardiac: Denies chest pain GI: Has some chronic left-sided abdominal pain, denies changes in bowel, denies nausea/vomiting : Denies changes in urination Extremity: Denies swelling MSK: Denies weakness Neuro: Denies any numbness/tingling Heme: Denies any bleeding or bruising Skin: Denies rashes Psychiatric: No complaints voiced Vital Signs Vital Signs Vital Signs: 09/18/22 11:34 09/18/22 11:44 09/18/22 12:14 Temperature 97.8 F Temperature Source Temporal Pulse Rate 116 H 94 Respiratory Rate 18 16 Blood Pressure 181/105 H 169/99 H Blood Pressure Mean 130 122 Pulse Ox 100 98 94 Oxygen Delivery Method Room Air Room Air Room Air 09/18/22 12:40 09/18/22 13:05 09/18/22 13:57 Temperature Temperature Source Pulse Rate 90 79 76 Respiratory Rate 14 14 14 Blood Pressure 136/78 H 129/80 H 132/78 H Blood Pressure Mean 97 96 96 Pulse Ox 94 96 96 Oxygen Delivery Method Room Air Room Air Room Air 09/18/22 14:32 Temperature Temperature Source Pulse Rate 86 Respiratory Rate 19 H Blood Pressure 147/83 H Blood Pressure Mean 104 Pulse Ox 96 Oxygen Delivery Method Room Air Weight Weight: 69.853 kg Body Mass Index (BMI) 28.1 Physical Exam Narrative General: Alert, oriented, no apparent distress HEENT: Atraumatic, normocephalic Eyes: Anicteric, normal conjunctiva, extraocular movements intact, pupils equal Neck: Supple Respiratory: Clear to auscultation bilaterally, normal respiratory effort Cardiovascular: Regular rate and rhythm GI: Soft, nontender, nondistended Extremities: No edema Musculoskeletal: All extremities 5 out of 5 strength Neuro: Aside from left-sided complete vision loss no other focal neurological deficits Skin: Patches of psoriasis on legs Psych: Cooperative Results Lab / Micro Data Result Diagrams: 09/18/22 11:40 09/18/22 11:40 Labs: Laboratory Results - last 24 hr 09/18/22 11:40: WBC 7.8, RBC 3.94 L, Hgb 15.1 H, Hct 42.9, MCV 108.9 H, MCH 38.3 H, MCHC 35.2, RDW Std Deviation 49.5 H, RDW Coeff of Alex 12.3, Plt Count 301, MPV 8.5, Immature Gran % (Auto) 0.400, Neut % (Auto) 74.9 H, Lymph % (Auto) 18.2 L, [place] % (Auto) 6.4, Eos % (Auto) 0.0, Baso % (Auto) 0.1, Absolute Neuts (auto) 5.8, Absolute Lymphs (auto) 1.42, Nucleated RBC % 0, ESR 10 09/18/22 11:40: PT 13.0, INR 1.0, APTT 27.2 09/18/22 11:40: Sodium 133 L, Potassium 4.1, Chloride 99, Carbon Dioxide 28.0, Anion Gap 6, BUN 6 L, Creatinine 0.79, Estim Creat Clear Calc 57.65, Est GFR (MDRD) Af Amer 95, Est GFR (MDRD) Non-Af 78, BUN/Creatinine Ratio 7.6 L, Glucose 125 H, Calcium 10.6 H, Troponin I High Sens 6, C-React Prot Ext Range < 2.90 09/18/22 11:41: POC Glucose 117 H Rhythm Strip Rhythm Strip: Sinus Rhythm Rate: 80 Ectopy: None Radiology Impression Chest X-Ray 09/18/22 12:05 IMPRESSION: No acute cardiopulmonary process identified. Electronically Signed: Trisha Beach MD at 12:56 EDT Reading Location ID and State: [facility] / [place] Tel , Service support , Head/Neck CTA 09/18/22 12:06 IMPRESSION: No acute intracranial process identified. Chronic involutional and white matter changes. Scattered small intracranial calcifications which can be seen with neurocysticercosis or sequela of other prior infection. No evidence for large vessel occlusion the [place]. Severe stenosis at the origin of the left internal carotid artery in the neck. Electronically Signed: Trisha Beach MD at 13:36 EDT , ADDENDUM: 09/18/22 1347 IMPRESSION: No acute intracranial process identified. Chronic involutional and white matter changes. Scattered small intracranial calcifications which can be seen with neurocysticercosis or sequela of other prior infection. No evidence for large vessel occlusion the [place]. Severe stenosis at the origin of the left internal carotid artery in the neck. N.B. : The above Results were Read Back by Trisha Beach MD to Bernardino Harvey MD, and understanding confirmed on 09/18/2022 13:40:47 (ET). Electronically Signed: Trisha Beach MD at 13:36 EDT , Assessment & Plan Assessment/Plan (1) Central retinal artery occlusion of left eye: (2) Stenosis of left internal carotid artery: (3) Stage 1 mild COPD by GOLD classification: PLAN: Plan #Left-sided central retinal artery occlusion -No other focal deficits, do not suspect acute stroke outside of this -We will obtain echo with bubble study -CTA showed bilateral carotid stenosis but with left-sided greater than right, will obtain duplex and consult vascular surgery given the stenosis is on the ipsilateral side of vision loss -Aspirin, statin -Lipid panel in the a.m. -We will also obtain COVID and hypercoagulable work-up -Admit to PCU, will likely need event monitor on discharge -Also has psoriasis, obtaining ESR and CRP #COPD -Continue home inhalers and nebs, not in exacerbation #Hypertension -On diltiazem, clonidine -We will continue with holding parameters but hold losartan to avoid extremely low blood pressure given her carotids however is no suspicion for intracranial ischemic stroke do not need permissive hypertension #Psoriasis -Not taking anything daily, will start seb #Hypothyroidism -Continue Synthroid #Nicotine use -Advised cessation -Nicotine patch #DVT ppx: Lovenox subcu Jacki Gupta MD Time spent in the patient's overall evaluation,decision-making process, review of diagnostic data, adjustment of management, discussion with other providers, nursing nursing and ancillary staff involved in patient's care documentation, 60 minutes Charges/Coding Visit Charges Inpatient E&M: 05401 Init Hosp L2
--- NOTE | 2022-09-18 16:41 | ECHOCS_ITS ---
Reason For Study: Retinal artery occlusion Procedure This was a 2D Doppler, Color Flow transthoracic echocardiogram. The study was technically difficult. Contrast injection was performed. Exam performed portable in patient room. Left Ventricle Normal LV size. The estimated ejection fraction is 60 %. No evidence for diastolic dysfunction. No regional wall motion abnormalities noted. Right Ventricle Normal RV size. Normal systolic function. Atria Normal left atrium. Normal right atrium. No doppler evidence for ASD. Bubble contrast study negative for right to left interatrial shunt. Mitral Valve There is no mitral valve stenosis. No mitral valve insufficiency. Tricuspid Valve There is no tricuspid stenosis. Unable to estimate RV systolic pressure due to inadequate jet, pulmonary artery pressure probably normal. Aortic Valve Trisinus/trileaflet aortic valve. There is no aortic stenosis. No aortic valve insufficiency. Pulmonic Valve There is no pulmonic valvular stenosis. No pulmonic valve insufficiency. Great Vessels Normal aortic root. Pericardium/Pleural No pericardial effusion. Medication Diluted definity 3ml given slow IV push to enhance endocardial definition. Performed a rapid injection of agitated mix of 9 cc saline and 1cc air to assess for atrial septal defect. MMode/2D Measurements & Calculations LVIDd: 4.2 cm IVSd: 0.90 cm Ao root diam: 3.8 cm LVIDs: 2.6 cm LVPWd: 0.78 cm LA dimension: 3.1 cm RVDd: 3.7 cm FS: 38.3 % LAV(MOD-bp): 37.0 ml LA A4 area: 13.5 cm2 RA A4 area: 10.6 cm2 LAV(MOD-bp) Indexed: 21.6 ml/m2 LAV(MOD-sp2): 40.7 ml LAV(MOD-sp4): 30.1 ml Time Measurements MV dec time: 0.25 sec Doppler Measurements & Calculations MV E max kadeem: 87.1 cm/sec Lat Peak E' Kadeem: 8.7 cm/sec Med Peak E' Kadeem: 13.7 cm/sec MV A max kadeem: 98.9 cm/sec E/E' lat: 10.0 E/E' med: 6.3 MV E/A: 0.88 MV V2 max: 127.5 cm/sec MV P1/2t max kadeem: 108.1 cm/sec Ao V2 max: 137.0 cm/sec MV max P.5 mmHg MV P1/2t: 78.2 msec Ao max P.5 mmHg MV V2 mean: 68.5 cm/sec MV dec slope: 405.2 cm/sec2 Ao V2 mean: 89.2 cm/sec MV mean P.2 mmHg Ao mean P.7 mmHg MV V2 VTI: 28.8 cm MVA(P1/2t): 2.8 cm2 Ao V2 VTI: 27.5 cm AV (velocity ratio): 0.93 LV V1 max: 128.5 cm/sec PA V2 max: 109.7 cm/sec LV V1 max P.6 mmHg PA V2 mean: 79.7 cm/sec LV V1 mean P.4 mmHg LV V1 mean: 85.0 cm/sec LV V1 VTI: 25.7 cm ECHO/Echo Complete W/ Contrast Interpretation Summary The estimated ejection fraction is 60 %. No evidence for diastolic dysfunction. Ordering Physician: Jacki Gupta Referring Physician: Kiarra Monk Performed By: Garret Hernandez RCS
[2022-09-18] MEDS: Acetaminophen 325 MG Tablet 650 MG PO ×2 (16:57→23:56)
[2022-09-18] MEDS: 0.9% Saline Lock 10 ML Syringe IV ×2 (18:19→23:56)
[2022-09-18] MEDS: Ondansetron 4 MG/2 ML Vial IV (18:19)
[2022-09-18] MEDS: Ipratropium/Albuterol Sulfate 3 ML AMPUL.NEB INHALATION (21:08)
[2022-09-18] MEDS: Venlafaxine XR 75 MG Capsule PO (21:28)
[2022-09-18] MEDS: cloNIDine HCl 0.1 MG Tablet PO (21:28)
[2022-09-18] MEDS: Atorvastatin Calcium 80 MG Tablet PO (21:28)
[2022-09-18] MEDS: Pantoprazole Sodium 40 MG Tablet PO (23:55)
[2022-09-18] MEDS: proCHLORPERazine 10 MG/2 ML Vial 5 MG IV (23:56)
[2022-09-19 01:50] VITALS: BP 139/84; PULSE 81; RESP 20; TEMP 36.4; O2SAT 94
[2022-09-19 05:09] VITALS: BP 124/76; PULSE 78; RESP 18; TEMP 36.6; O2SAT 97
[2022-09-19] MEDS: Levothyroxine 75 MCG Tablet PO (05:10)
[2022-09-19 06:00] VITALS: BMI 27.6
[2022-09-19 06:50] LABS: Absolute Lymphocyte Count 1.44 X10^3/uL (0.83-4.51); Absolute Neutrophil Count 3.4 X10^3/uL (2.0-7.7); Basophil# 0.01 X10^3/uL; Basophil% 0.2 % (0-1); Eosinophil# 0.01 X10^3/uL; Eosinophils% 0.2 % (0-5); Hematocrit 36.9 % (37-47); Hemoglobin 13.1 g/dL (12.0-15.0); Lymphocyte # 1.44 X10^3/ul (0.83-4.51); Lymphocyte % 27.1 % (19-41); Mean Corp Hgb Conc 35.5 g/dL (32-36); Mean Corpuscular Hgb 38.6 pg (27.0-32.0); Mean Corpuscular Volume 108.8 fL (81-99); Mean Platelet Vol. 8.1 fl (6.2-12.0); Monocyte# 0.41 X10^3/uL; Monocyte% 7.7 % (0-10); NRBC Flagged by Analyzer 0 % (0-5); Neutrophil # 3.42 X10^3/uL (2.7-7.7); Neutrophil % 64.4 % (47-70); Platelet Count 247 K/mm3 (150-450); RBC Distribution Width CV 12.6 % (11.6-14.6); RBC Distribution Width SD 50.3 fl (35.1-43.9); Red Blood Count 3.39 M/mm3 (4.2-5.4); White Blood Count 5.3 K/mm3 (4.4-11.0)
[2022-09-19 07:14] VITALS: O2SAT 96
[2022-09-19 07:36] LABS: ALB/GLOB Ratio 1.1 RATIO (0.9-2.4); AST(SGOT) 58 U/L (15-37); Alanine Aminotransfer ALT/SGPT 93 U/L (13-56); Albumin, Serum 3.7 g/dL (3.2-5.0); Alkaline Phosphatase 95 U/L (45-117); Anion Gap 11 (5-15); BUN 6 mg/dL (7-18); BUN/Creat Ratio 7.9 RATIO (10-20); Calcium,Total 9.6 mg/dL (8.5-10.1); Chloride 98 mmol/L (98-107); Cholesterol 171 mg/dL (200); Creatinine, Serum 0.76 mg/dL (0.55-1.02); EST Glomerular Filtration Rate 82 mL/min (>60); Est Glom Filt Rate - Afr Amer 99 mL/min (>60); Estimated Creatinine Clearance 59.92 ml/min; Globulin 3.5 g/dL (2.2-4.2); Glucose 106 mg/dL (74-106); High Density Lipoprotein 87 mg/dL; Potassium 3.4 mmol/L (3.5-5.1); Protein, Total 7.2 g/dL (6.4-8.2); Sodium Level 137 mmol/L (136-145); Triglycerides 55 mg/dL; Very Low Density Lipoprotein 11 mg/dL (5-40)
[2022-09-19] MEDS: Aspirin 81 MG TAB.CHEW PO (08:31)
[2022-09-19] MEDS: Enoxaparin 40 MG/0.4 ML Syringe SC (08:32)
[2022-09-19] MEDS: cloNIDine HCl 0.1 MG Tablet PO (08:32)
[2022-09-19] MEDS: dilTIAZem CD 180 MG Capsule PO (08:32)
[2022-09-19] MEDS: Potassium Chloride Oral Tablet 20 MEQ 40 MEQ PO (08:36)
[2022-09-19 08:40] VITALS: BP 132/85; PULSE 89; RESP 14; TEMP 36.7; O2SAT 98
--- NOTE | 2022-09-19 10:43 | DS.PCM_ITS ---
Providers Date of Admission: 09/18/22 Date of Discharge: 09/19/22 Primary Care Physician: Kiarra Monk, BEATRIS Consultations 09/18/22 16:56 Consult: Vascular Surgery Routine Consulting Provider: Torsten Forbes Reason for Consult: left ICA approx 70% stenosis at the origin w/ L sided vision loss EMERGENT Consult: No MD Notified: Yes Date Notified: 09/18/22 Time Notified: 16:56 Method of Notification: Text Reason For Visit: ACUTE CRAO, CAROTID STENOSIS Diagnosis Discharge Diagnosis (1) Central retinal artery occlusion of left eye: Status: Acute Code(s): H34.12 - Central retinal artery occlusion, left eye (2) Stenosis of left internal carotid artery: Status: Acute Code(s): I65.22 - Occlusion and stenosis of left carotid artery (3) Stage 1 mild COPD by GOLD classification: Status: Acute Code(s): J44.9 - Chronic obstructive pulmonary disease, unspecified Medications at Discharge Home Medications albuterol sulfate 90 mcg/actuation aerosol inhaler 2 puff inhalation Q4H PRN PRN Sob &/Or Wheezing 09/01/17 budesonide-formoterol HFA 160 mcg-4.5 mcg/actuation aerosol inhaler 2 puff inhalation BID copd 09/01/17 clonidine HCl 0.1 mg tablet 0.1 mg PO BID blood pressure 09/01/17 diltiazem HCl 180 mg capsule,extended release 24 hr 180 mg PO DAILY heart/blood pressure 09/01/17 fish oil-dha-epa 1,200 mg-144 mg-216 mg capsule 1 ea PO DAILY supplement 09/01/17 losartan 100 mg tablet 100 mg PO DAILY blood pressure 09/01/17 albuterol sulfate 2.5 mg/3 mL (0.083 %) solution for nebulization 2.5 mg (3 mL) inhalation Q2H PRN PRN dyspnea, wheezing ##1 09/04/17 ipratropium 0.5 mg-albuterol 3 mg (2.5 mg base)/3 mL nebulization soln 3 ml inhalation Q6H ##1 09/04/17 nebulizers #1 ea 09/04/17 cholecalciferol (vitamin D3) 25 mcg (1,000 unit) capsule 1,000 unit PO DAILY health maintenance 04/20/18 levothyroxine 75 mcg tablet 75 mcg PO DAILY thyroid 04/20/18 multivitamin (Multiple Vitamins tablet) 1 tab PO DAILY health maintenance 04/20/18 denosumab 60 mg/mL subcutaneous syringe (Prolia) 60 mg subcut [id number] health maintenance 10/07/21 esomeprazole magnesium 40 mg capsule,delayed release (Nexium) 40 mg PO DAILY PRN health maintenance 10/07/21 fluticasone propionate 50 mcg/actuation nasal spray,suspension (Flonase Allergy Relief) 2 spray intranasal QDAY health maintenance 09/18/22 umeclidinium 62.5 mcg/actuation blister powder for inhalation (Incruse Ellipta) 1 inh inhalation QDAY health maintenance 09/18/22 venlafaxine 75 mg capsule,extended release 24 hr See Rx Instructions .Route .COMPLEX health maintenance 09/18/22 clopidogrel 75 mg tablet (Plavix) 75 mg PO DAILY #30 tabs 09/19/22 rosuvastatin 20 mg tablet 20 mg PO DAILY cholesterol #30 tabs 09/19/22 Hospital Course Procedures 2-D Echocardiogram, EKG and - (Chest x-ray/CTA head and neck/carotid ultrasound) Summary of Care Provided Minutes Spent on Discharge: 37 Hospital Course: Ms. Costa is a 62-year-old white female who presented to the emergency department on 09/18/2022 with acute left eye vision loss. She reported that she woke up and was fine in the morning but about 810 on the day of admission she developed difficulty seeing out of her left eye and the nasal visual field however it quickly spread to her entire eye in a circular fashion. Since that point time she had developed of mild bifrontal headache. She had gone to her cloth bleaching supervisor who diagnosed her with a left eye central retinal artery occlusion. She was sent to the emergency department by her cloth bleaching supervisor for further work-up and to investigation as to why she developed this. Vital signs were overall relatively unremarkable other than some initial hypertension on presentation with a blood pressure of 169/99. Her CBC was unremarkable. Coags were unremarkable. Chemistry panel was unremarkable. A chest x-ray was performed and identified no acute cardiopulmonary process. Her EKG was normal sinus rhythm with normal intervals and no ST-T wave changes consistent with acute ischemia. A CTA of her head and neck was performed and intracranially she had no significant stenosis. The aortic arch showed mild calcified plaque 40 to 50% at the origin of the left subclavian artery, right internal carotid artery showed plaque with less than 50% stenosis proximally, left ICA showed approximately 70% stenosis at the origin and the vertebrals were unremarkable overall. She was admitted to the floor and monitored on telemetry. She had no abnormal telemetry events during her hospital course however will be sent home with an event monitor to rule out any PAF. An echocardiogram was performed and showed an ejection fraction of 60% and no evidence of diastolic dysfunction, no PFO or ASD noted. We obtained a lipid panel and her total cholesterol was found to be 171/LDL 173/HDL 87. Her TSH was 11.30 however we obtained a free T4 and it was found to be within normal limits. At the time of admission hypercoag panel was obtained and was pending at discharge. Ultrasound of the carotid were performed and verified significant stenosis gnosis in the left ICA and vascular surgery was consulted. They recommended continuing her aspirin and adding Plavix. Prescription for Plavix was faxed to her pharmacy and we also had her increase her statin from 20 mg of Crestor every other day to 20 mg of Crestor daily to attain an LDL less than 70. She was instructed not to drive until cleared to do so by ophthalmology with the left visual field cut. She is to follow-up with ophthalmology as directed prior to coming the emergency department. She is to follow-up with her primary care physician within 1 week. She is to follow-up with vascular surgery and plan for surgery is on October 03, 2022. She will need cardiac clearance prior to this and Dr. Forbes has ordered an outpatient stress test to be completed. She is able to be discharged home in stable condition. Prescriptions were faxed to her local pharmacy prior to discharge. We have strongly encouraged her in tobacco cessation. She voiced understanding and acknowledge the need to quit smoking. Discharge diagnoses: CRAO left eye Severe left carotid artery stenosis Moderate right carotid artery stenosis Hyperlipidemia Hypertension GERD Osteoporosis COPD Hypothyroidism Physical Exam Narrative Patient states she is feeling well. Had some heartburn overnight which she has periodically but this has since resolved. Still with complete visual loss in the left eye. Right eye is normal. Const alert, oriented x3, no apparent distress, average body habitus, healthy appearing and well nourished Constitutional Narrative: Very pleasant upper middle-aged white female lying in bed, appears comfortable and nontoxic, appears older than stated age General Appearance: cooperative, comfortable, well kempt and well developed Orientation / Consciousness: awake, oriented to person, oriented to place and oriented to time Exam Limitations: no limitations HEENT normocephalic, head/scalp atraumatic, hearing grossly normal bilaterally and moist oral mucous membranes HEENT Narrative: Mallampati 2, no thrush Eyes EOMs intact bilaterally and conjunctivae normal Eyes Narrative: Complete visual loss in the left eye with loss of direct pupillary response, consensual response is intact Neck no lymphadenopathy, supple, no JVD and no carotid bruits Neck Narrative: Trachea midline, no thyroid enlargement Resp normal respiratory effort, no retractions, no use of accessory muscles and No clear to auscultation bilaterally Resp Narrative: Mild diffuse scattered wheezing, diminished Auscultation: wheezes; Negative for rales or rhonchi Cardio regular rate, regular rhythm, S1 normal heart sound, S2 normal heart sound, no murmurs, no rub, no gallops and no clicks GI normal to inspection, nondistended, normoactive bowel sounds, soft to palpation and non-tender Extremity no clubbing, cyanosis or edema Extremity Narrative: Pedal pulses are 1+ bilateral lower extremities Skin no rashes or lesions noted, no wounds, skin turgor normal and no jaundice Neuro oriented x3, moves all extremities, no focal motor deficits and no sensory deficits noted Neuro Narrative: Complete loss of vision in the left eye but cranial nerves are normal otherwise Speech: speech normal Motor Exam: strength 5/5 throughout Psych affect normal Psych Narrative: Very pleasant, appropriately interactive Weight / BMI Weight Weight: 68.6 kg Body Mass Index (BMI) 27.6 ABG / Lab / Microbiology Data Result Diagrams: 09/19/22 06:20 09/19/22 06:20 Laboratory: Laboratory Results - last 24 hr 09/18/22 11:40: WBC 7.8, RBC 3.94 L, Hgb 15.1 H, Hct 42.9, MCV 108.9 H, MCH 38.3 H, MCHC 35.2, RDW Std Deviation 49.5 H, RDW Coeff of Alex 12.3, Plt Count 301, MPV 8.5, Immature Gran % (Auto) 0.400, Neut % (Auto) 74.9 H, Lymph % (Auto) 18.2 L, Emmons % (Auto) 6.4, Eos % (Auto) 0.0, Baso % (Auto) 0.1, Absolute Neuts (auto) 5.8, Absolute Lymphs (auto) 1.42, Nucleated RBC % 0, ESR 10 09/18/22 11:40: PT 13.0, INR 1.0, APTT 27.2 09/18/22 11:40: Sodium 133 L, Potassium 4.1, Chloride 99, Carbon Dioxide 28.0, Anion Gap 6, BUN 6 L, Creatinine 0.79, Estim Creat Clear Calc 57.65, Est GFR (MDRD) Af Amer 95, Est GFR (MDRD) Non-Af 78, BUN/Creatinine Ratio 7.6 L, Glucose 125 H, Calcium 10.6 H, Troponin I High Sens 6, C-React Prot Ext Range < 2.90 09/18/22 11:41: POC Glucose 117 H 09/18/22 17:15: COVID-19 (JULIO) Not Detected 09/19/22 06:20: WBC 5.3, RBC 3.39 L, Hgb 13.1, Hct 36.9 L, MCV 108.8 H, MCH 38.6 H, MCHC 35.5, RDW Std Deviation 50.3 H, RDW Coeff of Alex 12.6, Plt Count 247, MPV 8.1, Immature Gran % (Auto) 0.400, Neut % (Auto) 64.4, Lymph % (Auto) 27.1, Emmons % (Auto) 7.7, Eos % (Auto) 0.2, Baso % (Auto) 0.2, Absolute Neuts (auto) 3.4, Absolute Lymphs (auto) 1.44, Nucleated RBC % 0 09/19/22 06:20: Sodium 137, Potassium 3.4 L, Chloride 98, Carbon Dioxide 28.0, Anion Gap 11, BUN 6 L, Creatinine 0.76, Estim Creat Clear Calc 59.92, Est GFR (MDRD) Af Amer 99, Est GFR (MDRD) Non-Af 82, BUN/Creatinine Ratio 7.9 L, Glucose 106, Calcium 9.6, Total Bilirubin 0.60, AST 58 H, ALT 93 H, Alkaline Phosphatase 95, Total Protein 7.2, Albumin 3.7, Globulin 3.5, Albumin/Globulin Ratio 1.1, Triglycerides 55, Cholesterol 171, LDL Cholesterol 73, VLDL Cholesterol 11, HDL Cholesterol 87, TSH 11.30 H Radiography Diagnostic Testing: Radiology Impression Chest X-Ray 09/18/22 12:05 IMPRESSION: No acute cardiopulmonary process identified. Electronically Signed: Trisha Beach MD at 12:56 EDT , Head/Neck CTA 09/18/22 12:06 IMPRESSION: No acute intracranial process identified. Chronic involutional and white matter changes. Scattered small intracranial calcifications which can be seen with neurocysticercosis or sequela of other prior infection. No evidence for large vessel occlusion the [place]. Severe stenosis at the origin of the left internal carotid artery in the neck. Electronically Signed: Trisha Beach MD at 13:36 EDT , ADDENDUM: 09/18/22 1347 IMPRESSION: No acute intracranial process identified. Chronic involutional and white matter changes. Scattered small intracranial calcifications which can be seen with neurocysticercosis or sequela of other prior infection. No evidence for large vessel occlusion the [place]. Severe stenosis at the origin of the left internal carotid artery in the neck. N.B. : The above Results were Read Back by Trisha Beach MD to Bernardino Harvey MD, and understanding confirmed on 09/18/2022 13:40:47 (ET). Electronically Signed: Trisha Beach MD at 13:36 EDT , D/C Instructions Discharge Diet: Low fat / Low cholesterol Discharge Activity: Return to Normal Activity and May Not Drive (Due to left eye blindness until cleared by ophthalmology) Return to work on: 09/22/22 Meaningful Use Info Meaningful Use Diagnoses (Choose all that apply): None applicable Discharge Plan Admission Admit Date/Time: 09/18/22 16:39 Primary Reason for Your Visit: Central retinal artery occlusion left eye Attending Provider: Danette Moeller Primary Care Provider: Kiarra Monk Consulting Providers: Torsten Forbes ; Jacki Gupta Instructions Additional Instructions / Restrictions: 1. Your cholesterol was a little higher than we would like to see it therefore I did increase your Crestor from every other day to daily dosing and a prescription was sent to your pharmacy 2. Please follow-up with your cloth bleaching supervisor as directed Discharge Orders/Prescriptions Prescriptions: New clopidogrel [Plavix] 75 mg tablet 75 mg PO DAILY Qty: 30 1RF Continued levothyroxine 75 mcg tablet 75 mcg PO DAILY multivitamin [Multiple Vitamins] tablet 1 tab PO DAILY cholecalciferol (vitamin D3) 1,000 unit capsule 1,000 unit PO DAILY esomeprazole magnesium [Nexium] 40 mg capsule,delayed release(DR/EC) 40 mg PO DAILY PRN (Reason: health maintenance) Prolia 60 mg/mL syringe 60 mg subcut [id number] clonidine HCl 0.1 MG tablet 0.1 mg PO BID diltiazem HCl 180 MG capsule,extended release 24hr 180 mg PO DAILY albuterol sulfate 1 PUFF inhaler 2 puff Inhalation Q4H PRN PRN (Reason: Sob &/Or Wheezing) losartan 100 MG tablet 100 mg PO DAILY fish oil-dha-epa 1 EACH capsule 1 ea PO DAILY budesonide-formoterol 1 INHALER inhaler 2 puff Inhalation BID ipratropium-albuterol 3 ML solution for nebulization 3 ml INHALATION Q6H Qty: 1 0RF Rx Instructions: Continued aerosol treatments until completion of steroid taper and then transition back to home inhalers. albuterol sulfate 2.5 MG/3 ML solution for nebulization 2.5 mg INHALATION Q2H PRN PRN (Reason: dyspnea, wheezing) Qty: 1 0RF (DME) nebulizers 1 EACH misc 1 ea MC UD Qty: 1 0RF Rx Instructions: Nebulizer machine and kit x 1 Dx: COPD exac, PNA, RSV B Use as directed per aerosols. venlafaxine 75 mg capsule,extended release 24hr See Rx Instructions .ROUTE .COMPLEX Rx Instructions: TAKE 1 CAPSULE BY MOUTH EVERYDAY AT BEDTIME fluticasone propionate [Flonase Allergy Relief] 50 mcg/actuation spray,suspension 2 spray Intranasal QDAY Rx Instructions: administer into each nostril Incruse Ellipta 62.5 mcg/actuation blister with device 1 inh INHALATION QDAY rosuvastatin 20 mg tablet 20 mg PO DAILY Qty: 30 0RF Rx Instructions: take daily Other Ambulatory Orders: 30 Day Event Recorder Preventi (Urgent) Timeframe: 1 Day Facility: [facility] - Location: Cardiovascular Services Ordered By: Dr. Danette Moeller Referrals / Follow Up: Torsten Forbes MD [Med Staff - Active Staff] - Within 1 Week Kiarra Monk NP-C [Primary Care Provider] - Within 1 Week Disposition Disposition (needs filled in before D/C Order can be placed): Home, Self Care Charges/Coding Visit Charges Inpatient E&M: 49778 Disch Hosp >30min
[2022-09-19 11:27] LABS: T4 Free Direct 1.04 ng/dL (0.76-1.46)
--- NOTE | 2022-09-19 14:30 | PHA.DC.MC ---
Pharmacy Service has performed discharge medication reconciliation and counseling for this patient. Confirmed with patient, she does take aspirin 81mg po daily at home but it was not on the home med list. List has been updated. 1. CLOPIDOGREL 75MG PO DAILY The patient's discharge medication list was reviewed for discrepancies and discrepancies were resolved. Home Medications albuterol sulfate 90 mcg/actuation aerosol inhaler 2 puff inhalation Q4H PRN PRN Sob &/Or Wheezing 09/01/17 budesonide-formoterol HFA 160 mcg-4.5 mcg/actuation aerosol inhaler 2 puff inhalation BID copd 09/01/17 clonidine HCl 0.1 mg tablet 0.1 mg PO BID blood pressure 09/01/17 diltiazem HCl 180 mg capsule,extended release 24 hr 180 mg PO DAILY heart/blood pressure 09/01/17 fish oil-dha-epa 1,200 mg-144 mg-216 mg capsule 1 ea PO DAILY supplement 09/01/17 losartan 100 mg tablet 100 mg PO DAILY blood pressure 09/01/17 albuterol sulfate 2.5 mg/3 mL (0.083 %) solution for nebulization 2.5 mg (3 mL) inhalation Q2H PRN PRN dyspnea, wheezing ##1 09/04/17 ipratropium 0.5 mg-albuterol 3 mg (2.5 mg base)/3 mL nebulization soln 3 ml inhalation Q6H ##1 09/04/17 nebulizers #1 ea 09/04/17 cholecalciferol (vitamin D3) 25 mcg (1,000 unit) capsule 1,000 unit PO DAILY health maintenance 04/20/18 levothyroxine 75 mcg tablet 75 mcg PO DAILY thyroid 04/20/18 multivitamin (Multiple Vitamins tablet) 1 tab PO DAILY health maintenance 04/20/18 denosumab 60 mg/mL subcutaneous syringe (Prolia) 60 mg subcut [id number] health maintenance 10/07/21 esomeprazole magnesium 40 mg capsule,delayed release (Nexium) 40 mg PO DAILY PRN health maintenance 10/07/21 fluticasone propionate 50 mcg/actuation nasal spray,suspension (Flonase Allergy Relief) 2 spray intranasal QDAY health maintenance 09/18/22 umeclidinium 62.5 mcg/actuation blister powder for inhalation (Incruse Ellipta) 1 inh inhalation QDAY health maintenance 09/18/22 venlafaxine 75 mg capsule,extended release 24 hr See Rx Instructions .Route .COMPLEX health maintenance 09/18/22 aspirin 81 mg chewable tablet 81 mg PO DAILY 09/19/22 clopidogrel 75 mg tablet (Plavix) 75 mg PO DAILY #30 tabs 09/19/22 rosuvastatin 20 mg tablet 20 mg PO DAILY cholesterol #30 tabs 09/19/22 The patient was counseled on the following discharge medications and changes in medications for homegoing were reviewed. The Reason for Use, instructions for use, and potential side effects were reviewed for all new medications. The patient's questions regarding all of their medications were answered. The patient was able to verbally demonstrate an understanding of their discharge medications. Patient counseled by pharmacy grad internAliya.
[2022-09-19 14:38] VITALS: BMI 27.6
--- NOTE | 2022-09-19 16:10 | CON.PCM.SX_ITS ---
Documented by User: SANTY Escobar 09/19/22 18:15 Assessment & Plan Assessment/Plan (1) Central retinal artery occlusion of left eye: (2) Stenosis of left internal carotid artery: PLAN: Plan With symptomatic left carotid artery stenosis, do recommend surgical interventi on. Discussed with patient. CEA is recommended and she is agreeable to proceed at this time. Will be planning for surgery on 10/03. Our office will call her with exact date/time once confirmed with OR. In the meantime, will plan to obtain stress test as an outpatient for cardiac clearance. Continue with ASA, Plavix, and daily statin as initiated during this hospitalization. She will f/u as an outpatient prior to her surgery to ensure all necessary pre- operative testing has been coordinated and to ensure she has time to fully consider at home/discuss with family and ask any additional questions. HPI Consult Data Date of Consult: 09/19/22 HPI Narrative HPI Narrative: BARAK MEHTA, is a 62 F who presents with acute vision loss in her left eye with significant carotid artery stenosis identified on CTA. Patient reports that yesterday morning her vision in her left eye suddenly decreased and then quickly went completely black. She had no associated facial drooping, focal motor weakness, dysarthria. She presented to her recovery manager who recommended she be evaluated in the ED. She presented to [facility] ED, CTA was performed which should L HOOKER and significant carotid artery stenosis for which we are consulted. Duplex was performed which correlated with CTA and showed about 70% L ICA stenosis. She denies any prior history of CVA/TIA, VTE, CAD. She does have COPD, she takes 1 daily inhaler. This is currently managed by her PCP, does not actively follow with pulmonary. She does smoke, but since being in the hospital has been on daksha otine patches and she intends to continue this as an outpatient. She is motivated to quit smoking. She reports that her vision in her left eye remains dark rider, has not improved from onset. Otherwise, she feels well. Denies CP, SOB, LYNN, palpitations, syncope, weakness. [facility] Medical History Abdominal pain Abnormal alkaline phosphatase test Acute bronchitis with COPD Constipation COPD (chronic obstructive pulmonary disease) Depression Difficulty swallowing Esophageal dilatation Fatty liver Heartburn HTN (hypertension) Hypercholesteremia Hyponatremia Hypothyroidism Obesity (BMI 30.0-34.9) Osteoporosis Pneumonia Thyroglossal duct cyst Tobacco use Vitamin D deficiency Home Medications albuterol sulfate 90 mcg/actuation aerosol inhaler 2 puff inhalation Q4H PRN PRN Sob &/Or Wheezing 09/01/17 [History Last Taken Unknown] budesonide-formoterol HFA 160 mcg-4.5 mcg/actuation aerosol inhaler 2 puff inhalation BID copd 09/01/17 [History Last Taken Unknown] clonidine HCl 0.1 mg tablet 0.1 mg PO BID blood pressure 09/01/17 [History Last Taken 09/18/22 09:00] diltiazem HCl 180 mg capsule,extended release 24 hr 180 mg PO DAILY heart/blood pressure 09/01/17 [History Last Taken 09/18/22 09:00] fish oil-dha-epa 1,200 mg-144 mg-216 mg capsule 1 ea PO DAILY supplement 09/01/17 [History Last Taken 09/17/22 13:00] losartan 100 mg tablet 100 mg PO DAILY blood pressure 09/01/17 [History Last Taken 09/18/22 09:00] albuterol sulfate 2.5 mg/3 mL (0.083 %) solution for nebulization 2.5 mg (3 mL) inhalation Q2H PRN PRN dyspnea, wheezing ##1 09/04/17 [Rx Last Taken Unknown] ipratropium 0.5 mg-albuterol 3 mg (2.5 mg base)/3 mL nebulization soln 3 ml inhalation Q6H ##1 09/04/17 [Rx Last Taken Unknown] nebulizers #1 ea 09/04/17 [Rx Last Taken Unknown] cholecalciferol (vitamin D3) 25 mcg (1,000 unit) capsule 1,000 unit PO DAILY health maintenance 04/20/18 [History Last Taken 09/17/22 09:00] levothyroxine 75 mcg tablet 75 mcg PO DAILY thyroid 04/20/18 [History Last Taken 09/18/22 06:00] multivitamin (Multiple Vitamins tablet) 1 tab PO DAILY health maintenance 04/20/18 [History Last Taken 09/18/22 13:00] denosumab 60 mg/mL subcutaneous syringe (Prolia) 60 mg subcut [id number] health maintenance 10/07/21 [History Last Taken Unknown] esomeprazole magnesium 40 mg capsule,delayed release (Nexium) 40 mg PO DAILY PRN health maintenance 10/07/21 [History Last Taken 09/11/22] fluticasone propionate 50 mcg/actuation nasal spray,suspension (Flonase Allergy Relief) 2 spray intranasal QDAY health maintenance 09/18/22 [History Last Taken 09/17/22 09:00] umeclidinium 62.5 mcg/actuation blister powder for inhalation (Incruse Ellipta) 1 inh inhalation QDAY health maintenance 09/18/22 [History Last Taken Unknown] venlafaxine 75 mg capsule,extended release 24 hr See Rx Instructions .Route .COMPLEX health maintenance 09/18/22 [History Last Taken 09/17/22 21:00] aspirin 81 mg chewable tablet 81 mg PO DAILY 09/19/22 [History Last Taken Unkn own] clopidogrel 75 mg tablet (Plavix) 75 mg PO DAILY #30 tabs 09/19/22 [Rx Last Taken Unknown] rosuvastatin 20 mg tablet 20 mg PO DAILY cholesterol #30 tabs 09/19/22 [Rx Last Taken Unknown] Allergy/AdvReac Type Severity Reaction Status Date / Time amlodipine Allergy Swelling Verified 09/18/22 11:36 hydrochlorothiazide Allergy Other Verified 09/18/22 11:36 lisinopril Allergy cough Verified 09/18/22 11:36 Penicillins Allergy Rash Verified 09/18/22 11:36 Family History Mother Hypertension PVD (peripheral vascular disease) Thyroid disorder Father Diabetes Esophageal cancer Surgical History H/O section H/O hernia repair History of thyroglossal duct cyst removal Social History Smoking Status: Current every day smoker tobacco type: cigarettes Tobacco: How many years used: 35 second hand exposure: Yes alcohol intake: current alcohol intake frequency: holidays/special occasions only substance use type: does not use caffeine: Yes Type: coffee what type of physical activity do you participate in: walking frequency: 3-4 times per week ROS Eyes Eyes: Reports change in vision and loss of vision ENT HEENT: Denies abnormal hearing, dysphagia, epistaxis, hearing loss, nasal congestion or neck pain Cardiovascular Cardiovascular: Denies chest pain, dyspnea, palpitations or syncope Respiratory/Chest Respiratory/Chest: Denies cough, dyspnea, productive cough, shortness of breath at rest or shortness of breath with exertion Gastrointestinal Gastrointestinal: Denies abdominal pain, change in bowel habits, coffee ground emesis, constipation, diarrhea, hematemesis, hematochezia, melena, nausea, rectal bleeding or vomiting Genitourinary Genitourinary: Denies hematuria Musculoskeletal Musculoskeletal: Denies back pain, difficulty walking or numbness Integumentary Integumentary: Denies new lesions, non-healing lesions or rash Neurologic Neurologic: Denies abnormal gait, dizziness, focal weakness or numbness Psychiatric Psychiatric: Denies anxiety or depression Endocrine Endocrinology: Denies flushing, heat intolerance or palpitations Hematologic/Lymphatic Hematologic/Lymphatic: Denies easy bleeding or easy bruising Allergic/Immunologic Allergic/Immunologic: Reports systems reviewed and no addt'l complaints, except as documented Physical Exam Const alert, oriented x3, no apparent distress and healthy appearing General Appearance: cooperative HEENT normocephalic, head/scalp atraumatic and external nose normal Eyes Eyes Narrative: Complete visual loss in left eye. General Eye: normal appearance of both eyes Neck full ROM and no carotid bruits General: trachea midline Resp normal respiratory effort, no retractions and no use of accessory muscles Effort and Inspection: able to speak in complete sentences; Negative for labored, stridor or audible wheezes Cardio Rate: regular rate Rhythm: regular rhythm Heart Sounds: Negative for murmur Peripheral Pulses: pulses 2+ throughout Extremity full ROM and no calf tenderness Skin no rashes or lesions noted Neuro oriented x3, moves all extremities, no focal motor deficits, no sensory deficits noted and gait normal Neuro Narrative: Loss of vision in left eye, otherwise CN intact Speech: speech normal Psych mental status grossly normal Appearance: grossly normal Lab / Micro Data Result Diagrams: 09/19/22 06:20 09/19/22 06:20 Labs: Laboratory Results - last 24 hr 09/18/22 17:15: COVID-19 (JULIO) Not Detected 09/19/22 06:20: WBC 5.3, RBC 3.39 L, Hgb 13.1, Hct 36.9 L, MCV 108.8 H, MCH 38.6 H, MCHC 35.5, RDW Std Deviation 50.3 H, RDW Coeff of Alex 12.6, Plt Count 247, MPV 8.1, Immature Gran % (Auto) 0.400, Neut % (Auto) 64.4, Lymph % (Auto) 27.1, Spink % (Auto) 7.7, Eos % (Auto) 0.2, Baso % (Auto) 0.2, Absolute Neuts (auto) 3.4, Absolute Lymphs (auto) 1.44, Nucleated RBC % 0 09/19/22 06:20: Sodium 137, Potassium 3.4 L, Chloride 98, Carbon Dioxide 28.0, Anion Gap 11, BUN 6 L, Creatinine 0.76, Estim Creat Clear Calc 59.92, Est GFR (MDRD) Af Amer 99, Est GFR (MDRD) Non-Af 82, BUN/Creatinine Ratio 7.9 L, Glucose 106, Calcium 9.6, Total Bilirubin 0.60, AST 58 H, ALT 93 H, Alkaline Phosphatase 95, Total Protein 7.2, Albumin 3.7, Globulin 3.5, Albumin/Globulin Ratio 1.1, Triglycerides 55, Cholesterol 171, LDL Cholesterol 73, VLDL Cholesterol 11, HDL Cholesterol 87, TSH 11.30 H 09/19/22 06:20: Free T4 1.04 Rhythm Strip Rhythm Strip: Sinus Rhythm Rate: 80 Ectopy: None Radiology Impression Echocardiogram 09/18/22 16:41 Interpretation Summary The estimated ejection fraction is 60 %. No evidence for diastolic dysfunction. Ordering Physician: Jacki Gupta Referring Physician: Kiarra Monk Performed By: Garret Hernandez RCS Charges/Coding Visit Charges Inpatient E&M: 02521 Init Hosp L1 Documented by User: Dr. Torsten Forbes MD 09/22/22 09:44 Assessment & Plan Assessment/Plan (1) Central retinal artery occlusion of left eye: (2) Stenosis of left internal carotid artery: HPI Consult Data Date of Consult: 09/22/22 HPI Narrative HPI Narrative: BARAK MEHTA, is a 62 F who presents with acute vision loss in her left eye with significant carotid artery stenosis identified on CTA. Patient reports that yesterday morning her vision in her left eye suddenly d ecreased and then quickly went completely black. She had no associated facial drooping, focal motor weakness, dysarthria. She presented to her recovery manager who recommended she be evaluated in the ED. She presented to [facility] ED, CTA was performed which should L HOOKER and significant carotid artery stenosis for which we are consulted. Duplex was performed which correlated with CTA and showed 50- 69% L ICA stenosis. She denies any prior history of CVA/TIA, VTE, CAD. She does have COPD, she takes 1 daily inhaler. This is currently managed by her PCP, does not actively follow with pulmonary. She does smoke, but since being in the hospital has been on nicotine patches and she intends to continue this as an outpatient. She is motivated to quit smoking. She reports that her vision in her left eye remains dark rider, has not improved from onset. Otherwise, she feels well. Denies CP, SOB, LYNN, pal pitations, syncope, weakness. [facility] Medical History Abdominal pain Abnormal alkaline phosphatase test Acute bronchitis with COPD Constipation COPD (chronic obstructive pulmonary disease) Depression Difficulty swallowing Esophageal dilatation Fatty liver Heartburn HTN (hypertension) Hypercholesteremia Hyponatremia Hypothyroidism Obesity (BMI 30.0-34.9) Osteoporosis Pneumonia Thyroglossal duct cyst Tobacco use Vitamin D deficiency Home Medications albuterol sulfate 90 mcg/actuation aerosol inhaler 2 puff inhalation Q4H PRN PRN Sob &/Or Wheezing 09/01/17 [History Last Taken Unknown] budesonide-formoterol HFA 160 mcg-4.5 mcg/actuation aerosol inhaler 2 puff inhalation BID copd 09/01/17 [History Last Taken Unknown] clonidine HCl 0.1 mg tablet 0.1 mg PO BID blood pressure 09/01/17 [History Last Taken 09/18/22 09:00] diltiazem HCl 180 mg capsule,extended release 24 hr 180 mg PO DAILY heart/blood pressure 09/01/17 [History Last Taken 09/18/22 09:00] fish oil-dha-epa 1,200 mg-144 mg-216 mg capsule 1 ea PO DAILY supplement 09/01/17 [History Last Taken 09/17/22 13:00] losartan 100 mg tablet 100 mg PO DAILY blood pressure 09/01/17 [History Last Taken 09/18/22 09:00] albuterol sulfate 2.5 mg/3 mL (0.083 %) solution for nebulization 2.5 mg (3 mL) inhalation Q2H PRN PRN dyspnea, wheezing ##1 09/04/17 [Rx Last Taken Unknown] ipratropium 0.5 mg-albuterol 3 mg (2.5 mg base)/3 mL nebulization soln 3 ml inhalation Q6H ##1 09/04/17 [Rx Last Taken Unknown] nebulizers #1 ea 09/04/17 [Rx Last Taken Unknown] cholecalciferol (vitamin D3) 25 mcg (1,000 unit) capsule 1,000 unit PO DAILY health maintenance 04/20/18 [History Last Taken 09/17/22 09:00] levothyroxine 75 mcg tablet 75 mcg PO DAILY thyroid 04/20/18 [History Last Taken 09/18/22 06:00] multivitamin (Multiple Vitamins tablet) 1 tab PO DAILY health maintenance 04/20/18 [History Last Taken 09/18/22 13:00] denosumab 60 mg/mL subcutaneous syringe (Prolia) 60 mg subcut [id number] health maintenance 10/07/21 [History Last Taken Unknown] esomeprazole magnesium 40 mg capsule,delayed release (Nexium) 40 mg PO DAILY PRN health maintenance 10/07/21 [History Last Taken 09/11/22] fluticasone propionate 50 mcg/actuation nasal spray,suspension (Flonase Allergy Relief) 2 spray intranasal QDAY health maintenance 09/18/22 [History Last Taken 09/17/22 09:00] umeclidinium 62.5 mcg/actuation blister powder for inhalation (Incruse Ellipta) 1 inh inhalation QDAY health maintenance 09/18/22 [History Last Taken Unknown] venlafaxine 75 mg capsule,extended release 24 hr See Rx Instructions .Route .COMPLEX health maintenance 09/18/22 [History Last Taken 09/17/22 21:00] aspirin 81 mg chewable tablet 81 mg PO DAILY 09/19/22 [History Last Taken Unknown] clopidogrel 75 mg tablet (Plavix) 75 mg PO DAILY #30 tabs 09/19/22 [Rx Last Taken Unknown] rosuvastatin 20 mg tablet 20 mg PO DAILY cholesterol #30 tabs 09/19/22 [Rx Last Taken Unknown] Allergy/AdvReac Type Severity Reaction Status Date / Time amlodipine Allergy Swelling Verified 09/18/22 11:36 hydrochlorothiazide Allergy Other Verified 09/18/22 11:36 lisinopril Allergy cough Verified 09/18/22 11:36 Penicillins Allergy Rash Verified 09/18/22 11:36 Family History Mother Hypertension PVD (peripheral vascular disease) Thyroid disorder Father Diabetes Esophageal cancer Surgical History H/O section H/O hernia repair History of thyroglossal duct cyst removal Social History Smoking Status: Current every day smoker tobacco type: cigarettes Tobacco: How many years used: 35 second hand exposure: Yes alcohol intake: current alcohol intake frequency: holidays/special occasions only substance use type: does not use caffeine: Yes Type: coffee what type of physical activity do you participate in: walking frequency: 3-4 times per week Lab / Micro Data Result Diagrams: 09/19/22 06:20 09/19/22 06:20
[2022-09-24 14:09] LABS: Protein C Antigen 120 % (60-150); Protein C, Functional 158 % (73-180)
[2022-09-24 15:33] LABS: Anti-Cardiolipin Ab, IgG, Qn < 9 GPL U/mL (0-14); Anti-Cardiolipin Ab, IgM, Qn 11 MPL U/mL (0-12); Anti-Thrombin 3 AG, Immunol 89 % (72-124); Antithrombin 3 Function 117 % (75-135); Beta-2-Glycoprotein I IgA <9 (0-25); Beta-2-Glycoprotein I IgG <9 (0-20); Beta-2-Glycoprotein I IgM <9 (0-32)
== END 2022-09-19 10:48 | disposition home or self-care (01) ==
LOC: ED 14:08 → PCU 17:17
PROVIDERS: Admitting Provider Internal Medicine; Emergency Provider Emergency Medicine; PCP Nurse Practitioner Family; Visit Provider Internal Medicine
DX: H34.12 Central retinal artery occlusion, left eye (principal); J44.9 Chronic obstructive pulmonary disease, unspecified; I65.22 Occlusion and stenosis of left carotid artery; E03.9 Hypothyroidism, unspecified; E78.00 Pure hypercholesterolemia, unspecified; K21.9 Gastro-esophageal reflux disease without esophagitis; L40.9 Psoriasis, unspecified; I10 Essential (primary) hypertension; F17.210 Nicotine dependence, cigarettes, uncomplicated; Z79.899 Other long term (current) drug therapy; Z79.890 Hormone replacement therapy; Z79.82 Long term (current) use of aspirin
CPT/HCPCS: 99282; 36415; 70496; 70498; 71045; 80048; 80053; 80061; 81240; 81241; 82962; 84439; 84443; 84484; 85025; 85300; 85301; 85302; 85303; 85610; 85652; 85730; 86140; 86146; 86147; 87635; 93005; 93306; 93880; 94640; 96372; 96374; 96376; 99221; 99406; Q9957; Q9967; A4216; C8929; G0378; J2405; U0003; U0005

== ENCOUNTER → 2022-09-26 | Outpatient (CLI) | payer OTHER, SELFPAY ==
--- NOTE | 2022-09-27 09:15 | STRESSREP_ITS ---
Stress Test Report Exercise myocardial perfusion stress test. 62-year-old lady with a history of peripheral vascular disease for preop evaluation Stress protocol: Resting EKG demonstrates normal sinus rhythm with a rate of 69 bpm resting blood pressure is 132/80 mmHg. The patient exercised according to the regular [facility] protocol for a total duration of 4 minutes attaining a maximum heart rate of 134 bpm which was 85% of maximum predicted heart rate; the maximum workload was 7 metabolic equivalents. At rest there were no ST or T wave changes noted to sug gest ischemia and at peak exercise upsloping ST changes only were noted which did not meet the criteria for ischemia. No clinical angina was noted the test was terminated due to the target heart rate being achieved/fatigue. The peak blood pressure was 188/82 mmHg. Rate-pressure product was 22,700. Myocardial perfusion protocol. 14.4 mCi of technetium 99m sestamibi was injected at rest. The patient exercised according to regular [facility] protocol for total duration of 4 minutes and at peak exercise 41.8 mCi of technetium 99m sestamibi was injected stress images were obtained stress and rest images were reconstructed in comparing the short axis vertical long and horizontal long axis. Gated images were also obtained. Perfusion SPECT analysis: Review of the stress images demonstrate normal uptake of tracer noted in all areas of the myocardium. The resting images similarly demonstrate normal uptake of tracer noted in all areas of the myocardium. No areas of reversibility are noted to suggest ischemia no previous infarct was noted. Gated SPECT analysis: The gated ejection fraction is 79%. Conclusion: Normal exercise myocardial perfusion stress test at a moderate workload Preserved ejection fraction.
== END | disposition home or self-care (01) ==
PROVIDERS: PCP Nurse Practitioner Family; Referring Provider Physician Assistant; Visit Provider Physician Assistant
DX: I10 Essential (primary) hypertension (principal); I65.22 Occlusion and stenosis of left carotid artery
CPT/HCPCS: 78452; 93017; A9500

== ENCOUNTER 2022-10-03 08:48 | Inpatient (IN) | payer OTHER, SELFPAY ==
[2022-10-03] VITALS (14 sets, daily range): BP systolic 99–170; BP diastolic 61–82; PULSE 72–96; RESP 12–29; TEMP 36.6–36.9; O2SAT 87–100; BMI 29.0; BMI 30.7
--- NOTE | 2022-10-03 | PLAQ_PTH ---
PATIENT: BARAK MEHTA LOC: [facility] U#:[id number] AGE/SX: 62/F ROOM: [place] [address] RE10/03/[address]: Dr. Torsten Forbes MD : 1960 BED: 1 DIS: 10/05/2022 SPEC #: [id number] RECD: 10/03/22 17:18 STATUS: CHEL RESudha #: [id number] YUMIKO: 10/03/22 00:[address]: Torsten Forbes DEPT: SURGICAL PATHOLOGY RECD BY: Luciano Ratliff ENTERED: 10/06/22 09:23 SP TYPE: PLAQUE OTHR DR: Kiarra Monk, CAMPAIGN COORDINATOR-C Tissues: PLAQUE Procedures: Decalcification bone/plaque Surgery Specimen Level III HEADER OPERATION: Carotid endarterectomy PRE-OP DIAGNOSIS: Carotid artery disease TISSUE SUBMITTED: Left carotid plaque MICROSCOPIC DIAGNOSIS Left carotid plaque, endarterectomy: Calcified atheromatous plaque consistent with severe stenosis. AM:viola 10/09/2022 GROSS DESCRIPTION Received in fixative is one container labeled with the patient's name and designated left carotid plaque. The specimen consists of a previously opened tubular piece of amezcua, indurated tissue measuring 3.0 cm in length and 0.6 cm in diameter. The entire specimen is submitted in one cassette after decalcification. / SJ:viola 10/06/2022 TC:5 CPT: 73606, 50905
[2022-10-03] MEDS: Lactated Ringers 1,000 ML 15 ML IV (09:39)
[2022-10-03] MEDS: Vancomycin IV 1,000 MG/200 ML BAG 200 MG IV (09:40)
--- NOTE | 2022-10-03 11:55 | HP.PCM_ITS ---
History and Physical Allergies amlodipine Allergy (Verified 09/30/22 13:19) Swellinghydrochlorothiazide Allergy (Verified 09/30/22 13:19) Otherlisinopril Allergy (Verified 09/30/22 13:19) coughPenicillins Allergy (Verified 09/30/22 13:19) Rash Medications albuterol sulfate 90 mcg/actuation aerosol inhaler 2 puff inhalation Q4H PRN PRN Sob &/Or Wheezing 09/01/17 [History Confirmed 09/30/22] budesonide-formoterol HFA 160 mcg-4.5 mcg/actuation aerosol inhaler (Symbicort) 2 puff inhalation BID copd 09/01/17 [History Confirmed 09/30/22] clonidine HCl 0.1 mg tablet 0.1 mg PO BID blood pressure 09/01/17 [History Confirmed 09/30/22] fish oil-dha-epa 1,200 mg-144 mg-216 mg capsule 1 ea PO DAILY supplement 09/01/17 [History Confirmed 09/30/22] losartan 100 mg tablet 100 mg PO DAILY blood pressure 09/01/17 [History Confirmed 09/30/22] albuterol sulfate 2.5 mg/3 mL (0.083 %) solution for nebulization 2.5 mg (3 mL) inhalation Q2H PRN PRN dyspnea, wheezing ##1 09/04/17 [Rx Confirmed 09/30/22] nebulizers #1 ea 09/04/17 [Rx Confirmed 09/30/22] cholecalciferol (vitamin D3) 25 mcg (1,000 unit) capsule 1,000 unit PO DAILY h ealth maintenance 04/20/18 [History Confirmed 09/30/22] multivitamin (Multiple Vitamins tablet) 1 tab PO DAILY health maintenance 04/20/18 [History Confirmed 09/30/22] denosumab 60 mg/mL subcutaneous syringe (Prolia) 60 mg subcut [id number] health maintenance 10/07/21 [History Confirmed 09/30/22] esomeprazole magnesium 40 mg capsule,delayed release (Nexium) 40 mg PO DAILY PRN health maintenance 10/07/21 [History Confirmed 09/30/22] fluticasone propionate 50 mcg/actuation nasal spray,suspension (Flonase Allergy Relief) 2 spray intranasal QDAY health maintenance 09/18/22 [History Confirmed 09/30/22] umeclidinium 62.5 mcg/actuation blister powder for inhalation (Incruse Ellipta) 1 inh inhalation QDAY health maintenance 09/18/22 [History Confirmed 09/30/22] venlafaxine 75 mg capsule,extended release 24 hr See Rx Instructions .Route .COMPLEX health maintenance 09/18/22 [History Confirmed 09/30/22] aspirin 81 mg chewable tablet 81 mg PO DAILY Check with primary doctor 09/19/22 [History Confirmed 09/30/22] clopidogrel 75 mg tablet (Plavix) 75 mg PO DAILY Check with primary doctor 09/23/22 [History Confirmed 09/30/22] ipratropium 0.5 mg-albuterol 3 mg (2.5 mg base)/3 mL nebulization soln 3 ml inhalation Q6H Check with primary doctor 09/23/22 [History Confirmed 09/30/22] rosuvastatin 20 mg tablet 20 mg PO BID cholesterol 09/23/22 [History Confirmed 09/30/22] diltiazem HCl 180 mg capsule,extended release 24 hr 240 mg PO DAILY heart/blood pressure 09/30/22 [History Confirmed 09/30/22] levothyroxine 75 mcg tablet 88 mcg PO DAILY thyroid 09/30/22 [History Confirmed 09/30/22] PFSH Medical History? Abdominal pain Abnormal alkaline phosphatase test Acute bronchitis with COPD Anxiety Asthma Central retinal artery occlusion of left eye Chronic cough Constipation COPD (chronic obstructive pulmonary disease) Degenerative disc disease Depression Difficulty swallowing Esophageal dilatation Fatty liver GERD (gastroesophageal reflux disease) Heartburn High cholesterol History of diverticulitis History of echocardiogram History of hiatal hernia HTN (hypertension) Hypercholesteremia Hyponatremia Hypothyroidism Obesity (BMI 30.0-34.9) Osteoporosis Pneumonia Post-menopausal Psoriasis Shortness of breath on exertion Smoker Stage 1 mild COPD by GOLD classification Stenosis of left internal carotid artery Thyroglossal duct cyst Thyroid disease Tobacco use Vitamin D deficiency Wears glasses Surgical History? H/O section H/O hernia repair History of thyroglossal duct cyst removal Family History? Mother Hypertension PVD (peripheral vascular disease) Thyroid disorderFather Diabetes Esophageal cancer Social History? Smoking Status:? Current every day smoker tobacco type: cigarettes Tobacco: How many years used:? 35 second hand exposure:? Yes alcohol intake:? current alcohol intake frequency: holidays/special occasions only substance use type:? does not use caffeine:? Yes Type: coffee what type of physical activity do you participate in:? walking frequency:? 3-4 times per week HPI HPI HPI: BARAK MEHTA, is a 62 F who presents to the office today to discuss plan for left carotid endarterectomy. Patient was in the hospital for sudden-onset L eye vision loss from 09/18-09/19. CTA Head and Neck was performed revealing 70% stenosis L ICA and our service was consulted. I did discuss surgical options at that time with patient and she was agreeable to proceed. She presents today to ensure she is still agreeable to proceed, answer any questions/concerns that may have come up, and to meet with Dr. Forbes prior to the procedure. She reports that her L vision has improved somewhat in the interval but is still significantly decreased from normal. She denies any focal motor weakness, facial drooping, dysarthria. She denies any history of prior stroke/TIA. She did recently complete a stress test which was normal. She is tolerating the plavix and ASA. She stopped smoking during her hospitalization and is motivated to continue with cessation. She denies any CP, SOB, F/C, N/V, headaches, blood in the stool or urine. She has not other complaints. ROS General General: Yes fatigue; No weight change, appetite, colon cancer, breast cancer or weakness HEENT HEENT: No difficulty swallowing, eye injury, eye surgery, swollen glands or hoarseness Endo Endocrine: Yes thyroid disease; No diabetes mellitus, thyroid cancer, Hair loss, heat intolerance or cold intolerance Skin Skin: Yes rash and changing moles Musc Musculoskeletal: Yes back problems and arthritis; No rheumatoid arthritis, gout or joint pain Cardio Cardiovascular: Yes high blood pressure; No murmur, pacemaker, heart disease, atrial fibrillation, heart attack, heart stent, palpitations, shortness of breat with exertion or chest pain Psych Psychiatric: Yes depression and anxiety; No hearing voices Resp Respiratory: Yes shortness of breath, No sleep apnea, Yes cough, Yes COPD, Yes asthma, No emphysema and No wheezing Gastro Gastrointestinal: No abdominal pain, No nausea or vomiting, No diarrhea, No constipation, No blood in stool, Yes acid reflux, No hemorrhoids, No ulcers, No gallbladder problem and No black,tarry stools Aaron Hematologic: Yes blood thinners, No blood disorders, No bleeding, No anemia and No blood clots Neuro Neurologic: No system reviewed and no additional complaints, except as documented, No as per HPI, No abnormal gait, No abnormal hearing, No abnormal movements, No abnormal speech, No behavioral changes, No burning sensations, No confusion, No convulsions, No disequilibrium, No dizziness, No localized weakness, No frequent falls, No headache(s), No lack of coordination, No loss of vision, No memory loss, No numbness, No other visual disturbances, No radicular pain, No restless legs, No sensory deficit, No syncope, No tingling, No tremor(s), No weakness and No other Exam Const General: cooperative, healthy appearing, comfortable and no acute distress Orientation: alert, awake and oriented x3 [facility] Head: normal to inspection and normocephalic Ears: hearing grossly normal bilaterally Nose: external nose normal Eyes General: appearance normal, both eyes and all related structures Neck Neck: normal visual inspection, full ROM, trachea midline and no anterior neck swelling Resp Effort & Inspection: normal respiratory effort, able to speak in complete sentences, no audible wheezes, not labored, no stridor and no use of accessory muscles Cardio Rate: regular rate Rhythm: regular rhythm Neuro General: patient alert, patient awake, patient oriented x3, gait normal, moves all extremities, no focal motor deficits and CN's II-XI intact bilaterally Cognition: normal cognition Speech: speech normal Psych Appearance: grossly normal Mental Status: mental status grossly normal Mood: congruent mood Affect: normal affect Speech and Movement: speech and movement normal Attitude: cooperative Thought Process: normal Thought Content: normal Judgment: judgment good Diagnoses Carotid artery disease? I77.9 Assessment and Plan Assessment and Plan (1) Carotid artery disease: Plan -left cea
[2022-10-03] MEDS: Heparin Injection (Vial) 5,000 UNIT/ML VIAL 5000 UNIT (12:30)
[2022-10-03] MEDS: Bupivacaine 0.25% 30 ML Vial (14:55)
--- NOTE | 2022-10-03 15:03 | PCM.OPRPT ---
Report of Operation Date of Procedure: 10/03/22 Pre-Operative Diagnosis: left carotid stenosis Post-Operative Diagnosis: same Surgery/Procedure Performed:: left carotid endarterectomy Surgeon: Torsten Forbes Type of Anesthesia: General Drains: 19 Fr gail CONSTANTINO Estimated Blood Loss (mL): 25 Description of Procedure: HPI: Patient is a 62-year-old female who suffered a left retinal artery occlusion with significant vision loss. She was found to have significant left carotid artery stenosis was calcified in nature. Is felt that this was the source of her embolic event so she is taken now for endarterectomy. Description of procedure: Upon obtaining informed consent and verification correct patient procedure site the patient was taken to the operating room where she was placed under general anesthesia. She was then positioned prepped and draped in usual sterile fashion and a timeout was performed. Oblique incision made along the anterior border of the sternocleidomastoid and Bovie electrocautery used to dissect down through subcutaneous tissue. The platysma was divided and self-retaining retractors were put in position then further dissection carried down to the sternocleidomastoid. This was then mobilized and retracted laterally exposing the carotid sheath. The jugular vein was noted to be in an abnormal location anterior to the carotid. The jugular vein was then mobilized along its lateral border and retracted medially exposing the carotid vessels. Sharp dissection was then used to dissect free the common carotid artery, and the vagus nerve was noted to be in an anterior position. The nerve was mobilized along with the lateral edge and repositioned anterior medially. Sharp dissection was used dissect free the common carotid artery circumferentially and a right angle used to place a vessel loop. We then turned our attention to the internal carotid artery exposure with care taken to identify and protect the hypoglossal nerve, as well as to continue to protect the vagus nerve and its abnormal position. Writing was used to place a vessel loop around the internal carotid artery and the patient was heparinized and allowed to circulate for 3 minutes. Heparin dosing was repeated with serial ACT measurements. Finally we dissected free the external carotid artery and a right angle was used to place a vessel loop. The vessels were then occluded, first the internal followed by the common and external carotids. A longitudinal arteriotomy was created with 11 blade and extended with Cortez scissors onto the internal carotid artery beyond the area of plaque. A 14 [place] shunt was then placed first distally into the internal carotid artery, allowed to backbleed and then placed into the common carotid artery proximally. The shunt was interrogated and found to be patent with low resistance signal. We then performed her endarterectomy with a freer elevator with satisfactory endpoint distally onto the internal carotid artery and eversion endarterectomy of the external carotid artery. The lumen was then flushed with heparinized saline to clear of debris, and the distal endpoint tacked with 7-0 Prolene interrupted sutures. A bovine pericardial patch was then brought on the field and secured in position using 6-0 Prolene in a running fashion. Prior to completing the suture line the shunt was removed and the vessels backbled and the lumen flushed with heparinized saline. After completing the suture line the internal carotid artery was released allowed to backbleed and the bifurcation then reoccluded as origin. Clamps were then removed from the external and common carotid arteries allowing 10 heartbeats of antegrade flow to flush into the external before reestablishing flow into the internal carotid artery. After clamps removed satisfactory hemostasis was noted, and the vessels were interrogated with Doppler. The internal carotid artery had patent low resistance signal in the external carotid artery was patent with normal signal. Patient was then reversed with protamine and the incision inspected for hemostasis. Leeann topical hemostatic was applied and a 19 Tongan channel DOUGIE was placed via separate stab incision. The incision was again inspected for hemostasis and then closed with 2-0 Vicryl, 3-0 Vicryl, 4-0 Monocryl and Dermabond for the skin. At the conclusion of the case the patient was awakened from anesthesia, moving all extremities to command. She was then taken to the intensive care unit for hemodynamic and neurologic monitoring.
[2022-10-03] MEDS: Labetalol (Prefilled) 20 MG/4 ML 10 MG IV (17:29)
[2022-10-03] MEDS: oxyCODONE 5 MG Tablet PO ×2 (17:29→21:34)
[2022-10-03] MEDS: Dext 5%-0.45% NS 1,000 ML 100 ML IV (17:29)
[2022-10-03] MEDS: Budesonide Respules 0.5 MG/2 ML AMPUL.NEB. INHALATION (19:45)
[2022-10-03] MEDS: Ipratropium/Albuterol Sulfate 3 ML AMPUL.NEB INHALATION (19:45)
--- NOTE | 2022-10-03 19:45 | CPS ---
Decreased O2 to 4 lpm.
[2022-10-03] MEDS: Acetaminophen 500 MG Tablet 1000 MG PO (21:04)
[2022-10-03] MEDS: Venlafaxine XR 75 MG Capsule PO (21:04)
[2022-10-03] MEDS: Atorvastatin Calcium 80 MG Tablet PO (21:04)
[2022-10-03] MEDS: cloNIDine HCl 0.1 MG Tablet PO (21:04)
[2022-10-04] VITALS (36 sets, daily range): BP systolic 107–158; BP diastolic 56–118; PULSE 72–101; RESP 12–21; TEMP 36–37; O2SAT 92–100; BMI 29.8
[2022-10-04] MEDS: oxyCODONE 5 MG Tablet PO ×4 (01:48→22:16)
--- NOTE | 2022-10-04 01:50 | NURSING ---
Pt placed call light on for c/o L neck pain and stiffness. Neck examined w/pt's nurse and lg firm hematoma noted surrounding incision site; attempted to strip DOUGIE drain tubing x2: unsuccessful for evacuating further sanguinous drng than what was already present in tubing. Hematoma dark surface edges marked, pt's anterior throat anatomy assessed; trachea midline at this time and pt does c/o some difficulty w/swallowing. Pt stated that she just recently started coughing within the last hour to hour and 1/2. Pt informed of assessment findings and asked to alert staff if her difficulty swallowing worsens or she begins to have difficulty breathing; pt agreed to notify staff.
[2022-10-04] MEDS: HYDROmorphone Inj 0.2 MG/ML SYRINGE IV ×2 (01:53→08:35)
[2022-10-04] MEDS: hydrALAZINE 20 MG/ML Vial 10 MG IV (01:57)
[2022-10-04] MEDS: Dext 5%-0.45% NS 1,000 ML 100 ML IV ×3 (01:58→22:15)
[2022-10-04 03:12] LABS: Absolute Lymphocyte Count 0.41 X10^3/uL (0.83-4.51); Absolute Neutrophil Count 12.7 X10^3/uL (2.0-7.7); Basophil# 0.02 X10^3/uL; Basophil% 0.1 % (0-1); Hematocrit 32.9 % (37-47); Hemoglobin 11.5 g/dL (12.0-15.0); Lymphocyte # 0.41 X10^3/ul (0.83-4.51); Mean Corpuscular Hgb 38.6 pg (27.0-32.0); Mean Corpuscular Volume 110.4 fL (81-99); Mean Platelet Vol. 8.1 fl (6.2-12.0); Monocyte# 0.38 X10^3/uL; Monocyte% 2.8 % (0-10); NRBC Flagged by Analyzer 0 % (0-5); Neutrophil # 12.67 X10^3/uL (2.7-7.7); Neutrophil % 93.7 % (47-70); POSITIVE DIFFERENTIAL YES; Platelet Count 272 K/mm3 (150-450); RBC Distribution Width SD 49.1 fl (35.1-43.9); Red Blood Count 2.98 M/mm3 (4.2-5.4); White Blood Count 13.5 K/mm3 (4.4-11.0)
[2022-10-04 03:13] LABS: Differential Indicated SCAN CRITERIA MET
--- NOTE | 2022-10-04 03:34 | PCM.PN.SRG ---
Subjective Subjective called to see patient for fairly abrupt development of hematoma. patient noticed increased pain shortly after coughing spell at about midnight. nursing marked borders of ecchymosis/localized swelling and there has been increase since initial identification. no stridor, does have increased pain with swallowing Objective Data Objective Data awake, alert, nad rrr resp non labored CN intact, motor/sensory intact bilateral inc c/d/i, soft hematoma Vital Signs: Vital Signs Temp Pulse Resp BP Pulse Ox O2 Del Method O2 Flow Rate 98.6 F 80 15 158/91 H 98 Nasal Cannula 3 10/04/22 01:00 10/04/22 01:57 10/04/22 01:00 10/04/22 01:57 10/04/22 01:00 10/04/22 01:00 10/04/22 01:00 Oxygen Flow Rate (L/min) 3 Oxygen Delivery Method Nasal Cannula Weight: 153 lb 14.122 oz Body Mass Index (BMI) 30.7 Intake & Output: Intake and Output for Last 24 Hours 10/02/22 10/03/22 10/04/22 23:59 23:59 23:59 Intake Total 440 / 440 848.33 / 848.33 Output Total 35 / 35 Balance 405 / 405 848.33 / 848.33 Lab / Micro Data Result Diagrams: 10/04/22 03:05 10/04/22 03:05 Labs: Laboratory Results - last 24 hr 10/04/22 03:05: WBC 13.5 H, RBC 2.98 L, Hgb 11.5 L, Hct 32.9 L, MCV 110.4 H, MCH 38.6 H, MCHC 35.0, RDW Std Deviation 49.1 H, RDW Coeff of Alex 12.0, Plt Count 272, MPV 8.1, Immature Gran % (Auto) 0.400, Neut % (Auto) 93.7 H, Lymph % (Auto) 3.0 L, [place] % (Auto) 2.8, Eos % (Auto) 0.0, Baso % (Auto) 0.1, Absolute Neuts (auto) 12.7 H, Absolute Lymphs (auto) 0.41 L, Nucleated RBC % 0 Assessment & Plan Assessment/Plan (1) Stenosis of left internal carotid artery: PLAN: -POD # 1 left cea with new hematoma -while remains soft, the abrupt and delayed onset is concerning -to OR for drainage
--- NOTE | 2022-10-04 03:46 | NURSING ---
0200 Dr. Forbes contacted due to increased swelling and pain around carotid site, Dr. Forbes instructed to hold pressure until his arrival 0315 Pressure held, arrived and removed dressing to assess. Called OR team and obtained consent for Evacuation of Post-op Hematoma Patient to go to OR soon.
[2022-10-04 03:58] LABS: Anion Gap 5 (5-15); BUN 5 mg/dL (7-18); BUN/Creat Ratio 7.7 RATIO (10-20); Calcium,Total 7.8 mg/dL (8.5-10.1); Chloride 101 mmol/L (98-107); Creatinine, Serum 0.65 mg/dL (0.55-1.02); EST Glomerular Filtration Rate 98 mL/min (>60); Est Glom Filt Rate - Afr Amer 119 mL/min (>60); Estimated Creatinine Clearance 66.85 ml/min; Glucose 194 mg/dL (74-106); Potassium 4.1 mmol/L (3.5-5.1); Sodium Level 131 mmol/L (136-145)
[2022-10-04 04:53] LABS: Differential Comment SCANNED
[2022-10-04 04:54] LABS: Anisocytosis 3+; Macrocytosis 3+
--- NOTE | 2022-10-04 05:00 | NURSING ---
Pt placed on portable O2, monitor maintained, report called to OR staff; pt transported to OR via bed.
[2022-10-04] MEDS: Heparin Injection (Vial) 5,000 UNIT/ML VIAL 5000 UNIT (05:55)
[2022-10-04] MEDS: Thrombin 5,000 IU Kit (PSA) 5,000 IU Vial 5000 IU TOPICAL (06:00)
--- NOTE | 2022-10-04 06:27 | OP.PCM_ITS ---
Report of Operation Date of Procedure: 10/04/22 Pre-Operative Diagnosis: post op hematoma after left carotid endarterectomy Post-Operative Diagnosis: same Surgery/Procedure Performed:: evacuation hematoma Description of Surgical Findings:: 50 cc hematoma, no active bleeding, suture line intact Surgeon: Torsten Forbes Type of Anesthesia: General Drains: 19 fr DOUGIE Estimated Blood Loss (mL): 5 Description of Procedure: HPI: Patient is a 62-year-old female who 1 day prior underwent left carotid endarterectomy for symptomatic lesion. Initially postop she was doing well however approximately 8 hours postop she suffered significant violent coughing spell and shortly thereafter noted increasing pain and tightness around the incision. This continued to worsen and nursing was alerted who found a fairly sizable but soft hematoma. Manual pressure was held and upon evaluation there was a large soft hematoma the patient was experiencing significant discomfort but without any signs of airway compromise. [place] that given the size and abrupt onset of the hematoma and the delayed fashion after surgery that return to the operating room to evacuate was most prudent. She is taken out emergently to the operating room for hematoma evacuation. Description of procedure: Upon obtaining form consent and verification correct patient procedure site patient was taken to the operating room where she was placed under anesthesia. She was then positioned prepped and draped in usual sterile fashion timeout was performed. The previous surgical incision was opened onto the platysma with no superficial hematoma identified. The platysma suture layer closure was then opened and again no significant hematoma encountered. The sternocleidomastoid had been reapproximated with 3 interrupted sutures, when these were released approximately 50 cc of dark blood hematoma was encountered. This was evacuated and the wound vigorously irrigated with saline. Self-retaining retractor was then put in position and the wound bed inspected. All remaining hematoma was evacuated and irrigated and the incision inspected throughout its entirety. The suture line was intact with no sign of bleeding and there is a palpable pulse in the common, internal, external carotids. The vessels were interrogated with Doppler and found to be patent with appropriate signals. We then further inspected the wound bed posterior to the vessel and at the inferior and superior aspects there is very minor oozing encountered. There is also some minor oozing from the sternocleidomastoid which was controlled Bovie. Small focal source of bleeding was controlled with Bovie electrocautery. Then inspected and dry gauze placed followed by manual pressure. After pressure and gauze removed withdrawn the wound bed was dry with no significant welling of blood either arterial or venous. Again the wound bed was irrigated and again no significant bleeding was noted. Surgicel soaked in thrombin was then placed in the bed of the wound, over the suture line, and over the raw edge of the deep tissue. A 19 Cam[place]onian channel DOUGIE was placed via separate stab incision through the previous tract. The sternocleidomastoid was reapproximated with a single suture the midportion of the muscle. Valsalva maneuver was performed which did not result in any significant welling of blood. Wound bed was further inspected for several minutes again with no bleeding visualized. The platysma was then closed with 3-0 Vicryl and the skin with 4 Monocryl and Dermabond. Closure of the case patient was awakened from anesthesia and taken to the recovery room for observation prior to admission to the intensive care unit.
--- NOTE | 2022-10-04 07:29 | SUR.PHASEI ---
RECEIVED PATIENT FROM OR AT 1845 WITH DIRECT FIRM PRESSURE BEING APPLIED TO LEFT NECK BY THE OR NURSE. NO BLEEDING OR HEMATOMA NOTED ON LEFT NECK. AREA IS ECCYMOTIC. DIRECT FIRM PRESSURE HELD TO LEFT NECK BY RN FOR 25 MINUTES WITH SIGNS OF BLEEDING OR HEMATOMA
[2022-10-04] MEDS: Acetaminophen 500 MG Tablet 1000 MG PO ×3 (08:35→22:17)
[2022-10-04] MEDS: Benzonatate 100 MG Capsule PO ×3 (08:35→20:19)
[2022-10-04] MEDS: cloNIDine HCl 0.1 MG Tablet PO ×2 (08:36→22:18)
[2022-10-04] MEDS: Enoxaparin 40 MG/0.4 ML Syringe SC (08:36)
[2022-10-04] MEDS: Losartan Potassium 100 MG Tablet PO (08:36)
[2022-10-04] MEDS: Cholecalciferol (VIT D3) 25 MCG TABLET (1,000 UNITS) PO (08:37)
[2022-10-04] MEDS: Clopidogrel Bisulfate 75 MG Tablet PO (08:37)
[2022-10-04] MEDS: Levothyroxine 88 MCG Tablet PO (08:38)
[2022-10-04] MEDS: Aspirin 81 MG TAB.CHEW PO (08:38)
[2022-10-04] MEDS: dilTIAZem CD 240 MG Capsule PO (08:38)
--- NOTE | 2022-10-04 09:26 | PCM.PN.SRG ---
Subjective Subjective Pain much improved since hematoma evacuation. Holding pressure if she coughs. DOUGIE draining. Objective Data Objective Data A&O x 3, NAD RRR Resp non labored neck soft, no hematoma, stable ecchymosis DOUGIE with dark blood/surgicel staining Vital Signs: Vital Signs Temp Pulse Resp BP Pulse Ox O2 Del Method O2 Flow Rate 98.4 F 96 16 126/94 H 95 Nasal Cannula 4 10/04/22 07:45 10/04/22 07:45 10/04/22 07:45 10/04/22 07:45 10/04/22 07:45 10/04/22 07:45 10/04/22 07:45 Oxygen Flow Rate (L/min) 4 Oxygen Delivery Method Nasal Cannula Weight: 158 lb 1.143 oz Body Mass Index (BMI) 29.8 Intake & Output: Intake and Output for Last 24 Hours 10/02/22 10/03/22 10/04/22 23:59 23:59 23:59 Intake Total 440 / 440 848.33 / 848.33 Output Total 35 / 35 575 / 575 Balance 405 / 405 273.33 / 273.33 Lab / Micro Data Result Diagrams: 10/04/22 03:05 10/04/22 03:05 Labs: Laboratory Results - last 24 hr 10/04/22 03:05: WBC 13.5 H, RBC 2.98 L, Hgb 11.5 L, Hct 32.9 L, MCV 110.4 H, MCH 38.6 H, MCHC 35.0, RDW Std Deviation 49.1 H, RDW Coeff of Alex 12.0, Plt Count 272, MPV 8.1, Immature Gran % (Auto) 0.400, Neut % (Auto) 93.7 H, Lymph % (Auto) 3.0 L, [place] % (Auto) 2.8, Eos % (Auto) 0.0, Baso % (Auto) 0.1, Absolute Neuts (auto) 12.7 H, Absolute Lymphs (auto) 0.41 L, Nucleated RBC % 0, Differential Comment SCANNED, Anisocytosis 3+, Macrocytosis 3+ 10/04/22 03:05: Sodium 131 L, Potassium 4.1, Chloride 101, Carbon Dioxide 25.0, Anion Gap 5, BUN 5 L, Creatinine 0.65, Estim Creat Clear Calc 66.85, Est GFR (MDRD) Af Amer 119, Est GFR (MDRD) Non-Af 98, BUN/Creatinine Ratio 7.7 L, Glucose 194 H, Calcium 7.8 L Assessment & Plan Assessment/Plan (1) Stenosis of left internal carotid artery: PLAN: -POD # 1/0 left CEA/evac hematoma -cont DOUGIE stripping -tessalon perlkirsty -pressure when coughing -
--- NOTE | 2022-10-04 10:05 | CASEMGMT ---
NORMA PICKETT Assessment: Face to Face with pt for initial transition planning/care coordination assessment. RN PIYUSH introduced self and role at [facility], pt voices understanding and consents to assessment. Pt is A/O x4 and answers all questions appropriately at this time. Pt lying flat in bed in no distress. Care providers, pharmacy, and demographics verified/updated. Admitting Dx:L carotid endarterectomy PCP:Kiarra Monk [facility]OD [facility]ER Specialists:Leidy, jyoti; Friend, GI; Teresa, eye Preferred Pharmacy: [facility] Insurance: [employer] Prescription Benefit: yes LNOK:Ck Costa, ; Merced Cox, dtr Living Arrangements: Pt lives with in a trilevel with 6 steps to enter with a rail. Pt reports she is I in ADL's and denies concerns at home. Transportation: Pt has not been driving d/t eyesight. Pt has been providing transportation. DME/HHC/SNF: Pt denies having any DME, previous HHC or SNF stays. Pt states no concerns with going home at time of dc. Pt states no further concerns/needs. CM to follow.Advised pt to ask CM if any further question/concerns/needs arise, voices understanding. Pt Goal: Home Plan:Home
[2022-10-04] MEDS: Ipratropium/Albuterol Sulfate 3 ML AMPUL.NEB INHALATION (18:35)
[2022-10-04] MEDS: Budesonide Respules 0.5 MG/2 ML AMPUL.NEB. INHALATION (18:35)
[2022-10-04] MEDS: Atorvastatin Calcium 80 MG Tablet PO (22:17)
[2022-10-04] MEDS: Venlafaxine XR 75 MG Capsule PO (22:17)
[2022-10-05] VITALS (16 sets, daily range): BP systolic 95–143; BP diastolic 59–86; PULSE 74–98; RESP 12–25; TEMP 36.1–36.8; O2SAT 92–100; BMI 29.9
[2022-10-05] MEDS: oxyCODONE 5 MG Tablet PO ×3 (03:17→16:36)
[2022-10-05] MEDS: Benzonatate 100 MG Capsule PO (03:18)
[2022-10-05 03:55] LABS: Absolute Lymphocyte Count 0.58 X10^3/uL (0.83-4.51); Absolute Neutrophil Count 13.3 X10^3/uL (2.0-7.7); Basophil# 0.02 X10^3/uL; Basophil% 0.1 % (0-1); Hematocrit 29.9 % (37-47); Hemoglobin 10.1 g/dL (12.0-15.0); Lymphocyte # 0.58 X10^3/ul (0.83-4.51); Mean Corp Hgb Conc 33.8 g/dL (32-36); Mean Corpuscular Hgb 38.4 pg (27.0-32.0); Mean Corpuscular Volume 113.7 fL (81-99); Mean Platelet Vol. 8.6 fl (6.2-12.0); Monocyte% 4.1 % (0-10); NRBC Flagged by Analyzer 0 % (0-5); Neutrophil # 13.25 X10^3/uL (2.7-7.7); Neutrophil % 91.2 % (47-70); POSITIVE DIFFERENTIAL YES; Platelet Count 264 K/mm3 (150-450); RBC Distribution Width CV 12.3 % (11.6-14.6); RBC Distribution Width SD 51.2 fl (35.1-43.9); Red Blood Count 2.63 M/mm3 (4.2-5.4); White Blood Count 14.5 K/mm3 (4.4-11.0)
[2022-10-05 04:05] LABS: Differential Indicated SCAN CRITERIA MET
[2022-10-05 04:09] LABS: Anion Gap 3 (5-15); BUN 4 mg/dL (7-18); BUN/Creat Ratio 5.6 RATIO (10-20); Calcium,Total 8.1 mg/dL (8.5-10.1); Chloride 101 mmol/L (98-107); Creatinine, Serum 0.72 mg/dL (0.55-1.02); EST Glomerular Filtration Rate 87 mL/min (>60); Est Glom Filt Rate - Afr Amer 105 mL/min (>60); Estimated Creatinine Clearance 60.35 ml/min; Glucose 168 mg/dL (74-106); Sodium Level 131 mmol/L (136-145)
[2022-10-05 04:59] LABS: Anisocytosis 2+; Differential Comment SCANNED
[2022-10-05 05:00] LABS: Macrocytosis 2+
[2022-10-05] MEDS: Levothyroxine 88 MCG Tablet PO (06:28)
[2022-10-05] MEDS: Acetaminophen 500 MG Tablet 1000 MG PO ×2 (06:28→15:05)
--- NOTE | 2022-10-05 06:44 | CT_ITS ---
HISTORY: Left endarterectomy, DOUGIE drain placed, rule out hematoma of neck. TECHNIQUE: Noncontrast axial images were obtained of the brain. Subsequently, routine carotid CT angiogram protocol was performed without and with IV contrast. In addition, images were obtained of the [place]. NASCET criteria using the distal ICAs for comparison were used for evaluation of stenoses. 3D reconstructions were reviewed. A radiation dose optimization technique was used for this scan. IV Contrast dosage and agent: 97 mL Isovue 370. 2043 images. COMPARISON: 09/18/2022. FINDINGS: CT BRAIN- BRAIN PARENCHYMA: Chronic small vessel ischemic gliosis again noted. No acute intra-axial hemorrhage identified. Scattered small calcifications again seen. CSF SPACES: Cerebral ventricles, cortical sulci, and other extra-axial CSF spaces within normal limits in size for age. No midline shift or other significant mass effect.No acute extra-axial hemorrhage identified. OTHER: Intact calvarium. Symmetrical orbital contents.No significant air fluid levels in the paranasal sinuses or mastoid air cells. CTA NECK- AORTIC ARCH AND BRANCHES: Mild calcified plaque at the arch with 40-50% stenosis extending into the origin of the left subclavian artery and right innominate bifurcation. RIGHT CCA: No occlusion, significant stenosis or dissection. Calcified plaque at the bifurcation with less than 50% stenosis. RIGHT ICA: No occlusion, significant stenosis or dissection. Calcified plaque at the origin with less than 50% stenosis. LEFT CCA: No occlusion, significant stenosis or dissection. Mild atherosclerosis mid. Postoperative change at the bifurcation without significant stenosis. Mild atherosclerosis proximally. LEFT ICA: No occlusion, significant stenosis or dissection. Postoperative change at the origin without significant stenosis. RIGHT VERTEBRAL ARTERY: Calcified plaque at the origin. No occlusion, significant stenosis or dissection. LEFT VERTEBRAL ARTERY: Mild calcified plaque proximally less than 50% stenosis. No occlusion, significant stenosis or dissection. NECK SOFT TISSUES: Surgical drain and surgical clips in the left neck related to endarterectomy with mild surrounding stranding. No active contrast extravasation or drainable fluid collection. Prevertebral and retropharyngeal edema also seen. CTA HEAD- ICAs: No significant stenosis or aneurysm at the intracranial/visualized segments. Mild calcified plaque at both carotid siphons. ACAs: No significant stenosis at the visualized segments. No anterior indicating artery aneurysm. MCAs: No significant stenosis or vascular malformation at the visualized segments. personal development coach: No significant stenosis or vascular malformation at the visualized segments. Left origin. BASILAR ARTERY: No significant stenosis or aneurysm. VERTEBRAL ARTERIES: Dominant right and hypoplastic right vertebral arteries without significant stenosis or occlusion. CT/CTA Head AND Neck W/ Contrast IMPRESSION: No acute intracranial process identified. Chronic involutional and white matter changes. No evidence for significant stenosis in the carotid or vertebral arteries of the neck status post left endarterectomy. Surgical drain with mild postoperative hemorrhage and edema in the left neck without evidence for active contrast extravasation. No evidence for focal vascular abnormality in the [place] region. Electronically Signed: Trisha Beach MD at 9:11 EDT ,
[2022-10-05] MEDS: HYDROmorphone Inj 0.2 MG/ML SYRINGE IV ×2 (06:56→12:27)
[2022-10-05] MEDS: Ipratropium/Albuterol Sulfate 3 ML AMPUL.NEB INHALATION ×2 (08:02→13:52)
[2022-10-05] MEDS: Budesonide Respules 0.5 MG/2 ML AMPUL.NEB. INHALATION (08:02)
[2022-10-05] MEDS: Dext 5%-0.45% NS 1,000 ML 100 ML IV (08:25)
[2022-10-05] MEDS: Aspirin 81 MG TAB.CHEW PO (08:25)
--- NOTE | 2022-10-05 08:47 | PCM.DC.SUM ---
Providers Date of Admission: 10/03/22 Primary Care Physician: Kiarra Monk ADMINISTRATOR [employer] WELFARE-C Reason For Visit: L CAROTID ENDARTERECTOMY Diagnosis Discharge Diagnosis (1) Stenosis of left internal carotid artery: Status: Inactive Code(s): I65.22 - Occlusion and stenosis of left carotid artery Plan: POD # 2/1 left cea/evac hematoma -DOUGIE slowing appropriately, no collection on CT; drain removed -on 1 L, wean -ambulate -diet as tolerated, may do better with soft diet -ok for ice pack over site -will give decadron dose X 2 before dc -plan dc later today -home with natali torres Medications at Discharge Home Medications albuterol sulfate 90 mcg/actuation aerosol inhaler 2 puff inhalation Q4H PRN PRN Sob &/Or Wheezing 09/01/17 budesonide-formoterol HFA 160 mcg-4.5 mcg/actuation aerosol inhaler (Symbicort) 2 puff inhalation BID copd 09/01/17 clonidine HCl 0.1 mg tablet 0.1 mg PO BID blood pressure 09/01/17 fish oil-dha-epa 1,200 mg-144 mg-216 mg capsule 1 ea PO DAILY supplement 09/01/17 losartan 100 mg tablet 100 mg PO DAILY blood pressure 09/01/17 albuterol sulfate 2.5 mg/3 mL (0.083 %) solution for nebulization 2.5 mg (3 mL) inhalation Q2H PRN PRN dyspnea, wheezing ##1 09/04/17 nebulizers #1 ea 09/04/17 cholecalciferol (vitamin D3) 25 mcg (1,000 unit) capsule 1,000 unit PO DAILY health maintenance 04/20/18 multivitamin (Multiple Vitamins tablet) 1 tab PO DAILY health maintenance 04/20/18 denosumab 60 mg/mL subcutaneous syringe (Prolia) 60 mg subcut [id number] health maintenance 10/07/21 esomeprazole magnesium 40 mg capsule,delayed release (Nexium) 40 mg PO DAILY PRN health maintenance 10/07/21 fluticasone propionate 50 mcg/actuation nasal spray,suspension (Flonase Allergy Relief) 2 spray intranasal QDAY health maintenance 09/18/22 umeclidinium 62.5 mcg/actuation blister powder for inhalation (Incruse Ellipta) 1 inh inhalation QDAY health maintenance 09/18/22 venlafaxine 75 mg capsule,extended release 24 hr See Rx Instructions .Route .COMPLEX health maintenance 09/18/22 aspirin 81 mg chewable tablet 81 mg PO DAILY Check with primary doctor 09/19/22 clopidogrel 75 mg tablet (Plavix) 75 mg PO DAILY Check with primary doctor 09/23/22 ipratropium 0.5 mg-albuterol 3 mg (2.5 mg base)/3 mL nebulization soln 3 ml inhalation Q6H Check with primary doctor 09/23/22 rosuvastatin 20 mg tablet 20 mg PO BID cholesterol 09/23/22 diltiazem HCl 180 mg capsule,extended release 24 hr 240 mg PO DAILY heart/blood pressure 09/30/22 levothyroxine 75 mcg tablet 88 mcg PO DAILY thyroid 09/30/22 benzonatate 100 mg capsule 100 mg PO Q4H PRN PRN COUGH 5 days #30 caps 10/05/22 oxycodone 5 mg tablet 5 mg PO Q4H PRN PRN Pain Score 4-10 5 days #30 tabs 10/05/22 Hospital Course Operations - (1) left carotid endarterectomy 2) evacuation neck hematoma ) Summary of Care Provided Hospital Course: Patient is a 62-year-old female with a symptomatic left carotid artery stenosis who presented on 10/03/2022 for elective left carotid endarterectomy. She tolerated the procedure well and was admitted to the intensive care unit postop for hemodynamic and neurologic monitoring. Initially she did well however in the hand drawer in helper hours of postop day #1 she developed an abrupt onset hematoma after a vigorous coughing spell. DOUGIE drain had ceased any output and she was having significant symptoms so she was taken the operating room 10/04/2022 for exploration and evacuation of the hematoma. This procedure revealed approximately 50 cc of deep hematoma with no significant source of bleeding. Hemostasis was augmented with topical agents and ultimately incision had been closed with DOUGIE drain and more loose approximation of the sternocleidomastoid. In addition she also was instructed to hold pressure when coughing and was given Tessalon Perles to help suppress her cough. Throughout the following day she continued to do well and was tolerating diet with no significant recurrence of her symptoms initially. The following evening, in the hand drawer in helper hours of 10/05/2022 she was experiencing more pain in particular with swallowing though no swelling was noted and her DOUGIE drain continued to have output which was diminishing. To be cautious a CT scan was performed which revealed no significant fluid collection as well as patent carotid endarterectomy site. Patient was doing better over the next several hours with a single dose of IV pain medication and the drain continued to taper. The DOUGIE drain was then removed, patient was given doses of Decadron to help with localized edema which is likely the source of her increased pain due to multiple ET tube placements and surgical trauma over the first 24 hours in the hospital. She was weaned from oxygen, progressively ambulated, and pain controlled so on 10/05/2022, postop day 2 she was discharged home. Physical Exam Const alert, oriented x3, no apparent distress and healthy appearing General Appearance: cooperative; Negative for combative or lethargic Orientation / Consciousness: awake Exam Limitations: no limitations HEENT Head and Scalp: normocephalic and atraumatic Eyes EOMs intact bilaterally General Eye: normal appearance of both eyes Neck full ROM General: trachea midline Resp normal respiratory effort and no use of accessory muscles Effort and Inspection: Negative for labored, stridor or audible wheezes Cardio regular rate and regular rhythm Back/Spine Cervical Spine: cervical ROM normal Extremity full ROM, normal capillary refill and no clubbing, cyanosis or edema Skin no rashes or lesions noted and no wounds Neuro oriented x3, CN's II-XII intact bilaterally, no focal motor deficits and no sensory deficits noted Psych thought process normal, cooperative, affect normal, speech normal and activity/motor behavior normal Weight / BMI Weight Weight: 158 lb 15.253 oz Body Mass Index (BMI) 29.9 ABG / Lab / Microbiology Data Result Diagrams: 10/05/22 03:25 10/05/22 03:25 Laboratory: Laboratory Results - last 24 hr 10/05/22 03:25: WBC 14.5 H, RBC 2.63 L, Hgb 10.1 L, Hct 29.9 L, MCV 113.7 H, MCH 38.4 H, MCHC 33.8, RDW Std Deviation 51.2 H, RDW Coeff of Alex 12.3, Plt Count 264, MPV 8.6, Immature Gran % (Auto) 0.600, Neut % (Auto) 91.2 H, Lymph % (Auto) 4.0 L, Rhea % (Auto) 4.1, Eos % (Auto) 0.0, Baso % (Auto) 0.1, Absolute Neuts (auto) 13.3 H, Absolute Lymphs (auto) 0.58 L, Nucleated RBC % 0, Differential Comment SCANNED, Anisocytosis 2+, Macrocytosis 2+ 10/05/22 03:25: Sodium 131 L, Potassium 4.0, Chloride 101, Carbon Dioxide 27.0, Anion Gap 3 L, BUN 4 L, Creatinine 0.72, Estim Creat Clear Calc 60.35, Est GFR (MDRD) Af Amer 105, Est GFR (MDRD) Non-Af 87, BUN/Creatinine Ratio 5.6 L, Glucose 168 H, Calcium 8.1 L D/C Instructions Discharge Diet: No restrictions Discharge Activity: May Shower (tomorrow) and May Take a Tub Bath (do not submerge incision for 3 weeks) May shower in (days): 1 Ice area for (Minutes): 30 Lifting Restrictions: do not lift > 20 lbs for 3 weeks Additional Activity Instructions: apply pressure to incision site when coughing/straining Call your doctor if your incision/area has: Sudden Increased Bleeding, Increased Pain/ Swelling, Increased Redness and Foul Smelling Discharge Call your doctor if you observe: Fever of 101 or Higher Cleanse incision/area with: Soap & Water Additional Dressing/Incision Instructions: dry dressing over drain site as needed Meaningful Use Info Meaningful Use Diagnoses (Choose all that apply): None applicable Discharge Plan Admission Admit Date/Time: 10/03/22 08:48 Attending Provider: Torsten Forbes Primary Care Provider: Kiarra Monk Discharge Orders/Prescriptions Prescriptions: New oxycodone 5 mg Tablet 5 mg PO Q4H PRN PRN (Reason: Pain Score 4-10) 5 Days Qty: 30 0RF benzonatate 100 mg capsule 100 mg PO Q4H PRN PRN (Reason: COUGH) 5 Days Qty: 30 0RF Continued multivitamin [Multiple Vitamins] tablet 1 tab PO DAILY cholecalciferol (vitamin D3) 1,000 unit capsule 1,000 unit PO DAILY levothyroxine 75 mcg tablet 88 mcg PO DAILY Rx Instructions: THU-THU DAILY, TWO ON THURSDAY esomeprazole magnesium [Nexium] 40 mg capsule,delayed release(DR/EC) 40 mg PO DAILY PRN (Reason: health maintenance) Prolia 60 mg/mL syringe 60 mg subcut [id number] clonidine HCl 0.1 MG tablet 0.1 mg PO BID albuterol sulfate 1 PUFF inhaler 2 puff Inhalation Q4H PRN PRN (Reason: Sob &/Or Wheezing) losartan 100 MG tablet 100 mg PO DAILY fish oil-dha-epa 1 EACH capsule 1 ea PO DAILY budesonide-formoterol [Symbicort] 1 INHALER inhaler 2 puff Inhalation BID albuterol sulfate 2.5 MG/3 ML solution for nebulization 2.5 mg INHALATION Q2H PRN PRN (Reason: dyspnea, wheezing) Qty: 1 0RF (DME) nebulizers 1 EACH misc 1 ea miscellaneous UD Qty: 1 0RF Rx Instructions: Nebulizer machine and kit x 1 Dx: COPD exac, PNA, RSV B Use as directed per aerosols. diltiazem HCl 180 mg capsule,extended release 24hr 240 mg PO DAILY venlafaxine 75 mg capsule,extended release 24hr See Rx Instructions .ROUTE .COMPLEX Rx Instructions: TAKE 1 CAPSULE BY MOUTH EVERYDAY AT BEDTIME fluticasone propionate [Flonase Allergy Relief] 50 mcg/actuation spray,suspension 2 spray Intranasal QDAY Rx Instructions: administer into each nostril Incruse Ellipta 62.5 mcg/actuation blister with device 1 inh INHALATION QDAY aspirin 81 mg Tablet,Chewable 81 mg PO DAILY ipratropium-albuterol 3 ML solution for nebulization 3 ml inhalation Q6H Rx Instructions: Continued aerosol treatments until completion of steroid taper and then transition back to home inhalers. clopidogrel [Plavix] 75 mg tablet 75 mg PO DAILY rosuvastatin 20 mg tablet 20 mg PO BID Rx Instructions: take daily Referrals / Follow Up: Kiarra Monk NP-C [Primary Care Provider] - Disposition Disposition (needs filled in before D/C Order can be placed): Home, Self Care
--- NOTE | 2022-10-05 08:48 | PCM.PN.SRG ---
Subjective Subjective Doing better this morning. Had some increased pain/sore throat and pain with swallowing overnight. CTA revealed no hematoma, DOUGIE drain slowing. 90 cc total since surgery, 30 cc second shift. Objective Data Objective Data A&O x 3, NAD RRR resp non labored neck soft, no hematoma, stable ecchymosis DOUGIE sero-sang CTA- images reviewed, patent CEA, no fluid collection CN intact, motor/sensory intact Vital Signs: Vital Signs Temp Pulse Resp BP Pulse Ox O2 Del Method O2 Flow Rate 98.2 F 84 16 120/76 98 Nasal Cannula 1 10/05/22 04:00 10/05/22 08:02 10/05/22 08:02 10/05/22 07:00 10/05/22 08:02 10/05/22 08:02 10/05/22 08:02 FiO2 30 10/04/22 15:00 Oxygen Flow Rate (L/min) 1 Oxygen Delivery Method Nasal Cannula Weight: 158 lb 15.253 oz Body Mass Index (BMI) 29.9 Intake & Output: Intake and Output for Last 24 Hours 10/03/22 10/04/22 10/05/22 23:59 23:59 23:59 Intake Total 440 / 440 3326.66 / 3686.66 1620 / 1620 Output Total 35 / 35 3045 / 3445 1175 / 1175 Balance 405 / 405 281.66 / 241.66 445 / 445 Lab / Micro Data Result Diagrams: 10/05/22 03:25 10/05/22 03:25 Labs: Laboratory Results - last 24 hr 10/05/22 03:25: WBC 14.5 H, RBC 2.63 L, Hgb 10.1 L, Hct 29.9 L, MCV 113.7 H, MCH 38.4 H, MCHC 33.8, RDW Std Deviation 51.2 H, RDW Coeff of Alex 12.3, Plt Count 264, MPV 8.6, Immature Gran % (Auto) 0.600, Neut % (Auto) 91.2 H, Lymph % (Auto) 4.0 L, [place] % (Auto) 4.1, Eos % (Auto) 0.0, Baso % (Auto) 0.1, Absolute Neuts (auto) 13.3 H, Absolute Lymphs (auto) 0.58 L, Nucleated RBC % 0, Differential Comment SCANNED, Anisocytosis 2+, Macrocytosis 2+ 10/05/22 03:25: Sodium 131 L, Potassium 4.0, Chloride 101, Carbon Dioxide 27.0, Anion Gap 3 L, BUN 4 L, Creatinine 0.72, Estim Creat Clear Calc 60.35, Est GFR (MDRD) Af Amer 105, Est GFR (MDRD) Non-Af 87, BUN/Creatinine Ratio 5.6 L, Glucose 168 H, Calcium 8.1 L Assessment & Plan Assessment/Plan (1) Stenosis of left internal carotid artery: PLAN: POD # 2/1 left cea/evac hematoma -DOUGIE slowing appropriately, no collection on CT; drain removed -on 1 L, wean -ambulate -diet as tolerated, may do better with soft diet -ok for ice pack over site -will give decadron dose X 2 before dc -plan dc later today -home with natali torres
--- NOTE | 2022-10-05 09:28 | NURSING ---
0830- DOUGIE drain removed by Dr. Forbes.
[2022-10-05] MEDS: Enoxaparin 40 MG/0.4 ML Syringe SC (09:42)
[2022-10-05] MEDS: dilTIAZem CD 240 MG Capsule PO (10:04)
[2022-10-05] MEDS: Losartan Potassium 100 MG Tablet PO (10:04)
[2022-10-05] MEDS: cloNIDine HCl 0.1 MG Tablet PO (10:04)
[2022-10-05] MEDS: Fluticasone 0.05% 1 SPRAY NASAL.SRY 2 SPRAY NASAL (10:05)
[2022-10-05] MEDS: Clopidogrel Bisulfate 75 MG Tablet PO (10:05)
[2022-10-05] MEDS: dexAMETHasone 4 MG/ML Vial IV ×2 (10:06→16:09)
[2022-10-05] MEDS: Cholecalciferol (VIT D3) 25 MCG TABLET (1,000 UNITS) PO (10:06)
[2022-10-05] MEDS: 0.9% Saline Lock 10 ML Syringe IV ×2 (10:07→12:27)
[2022-10-05] MEDS: Docusate Sodium 100 MG Capsule PO (12:26)
[2022-10-06 13:28] LABS: ACT Activated Clotting Time 143 sec (74-137)
[2022-10-06 13:29] LABS: ACT Activated Clotting Time 299 sec (74-137)
[2022-10-06 13:30] LABS: ACT Activated Clotting Time 257 sec (74-137)
== END 2022-10-05 16:43 | disposition home or self-care (01) | DRG 38 ==
LOC: ACINP 08:51 → ICU 16:48
PROVIDERS: Admitting Provider Surgery Trauma Surgery; PCP Nurse Practitioner Family; Referring Provider Surgery Trauma Surgery; Visit Provider Surgery Trauma Surgery
PROC: 03CL0ZZ Extirpation of Matter from Left Internal Carotid Artery, Open Approach (ICD-10-PCS; CPT 35301; principal; 2022-10-03 10:40)
PROC: 0KC30ZZ Extirpation of Matter from Left Neck Muscle, Open Approach (ICD-10-PCS; CPT 35301; principal; 2022-10-04 04:30)
DX: I65.22 Occlusion and stenosis of left carotid artery (principal); M96.841 Postprocedural hematoma of a musculoskeletal structure following other procedure; H54.7 Unspecified visual loss; I77.9 Disorder of arteries and arterioles, unspecified; Z79.890 Hormone replacement therapy; Z79.899 Other long term (current) drug therapy; Z87.891 Personal history of nicotine dependence; Y83.8 Other surgical procedures as the cause of abnormal reaction of the patient, or of later complication, without mention of misadventure at the time of the procedure; Y92.239 Unspecified place in hospital as the place of occurrence of the external cause
CPT/HCPCS: 70496; 70498; 80048; 85025; 85347; 88304; 88311; 94640; 94668; 97162; 97165; 99252; 99406; A4648; J7120; Q9967; A4216; G0463; J2405; J7799

== ENCOUNTER → 2022-10-23 | Outpatient (CLI) | payer OTHER, SELFPAY ==
[2022-10-23 12:55] LABS: Erythrocyte Sedimentation Rate 37 mm/hr (0-30)
[2022-10-23 12:58] LABS: Absolute Lymphocyte Count 1.16 X10^3/uL (0.83-4.51); Absolute Neutrophil Count 5.5 X10^3/uL (2.0-7.7); Basophil# 0.01 X10^3/uL; Basophil% 0.1 % (0-1); Hematocrit 35.2 % (37-47); Hemoglobin 12.3 g/dL (12.0-15.0); Lymphocyte # 1.16 X10^3/ul (0.83-4.51); Lymphocyte % 16.1 % (19-41); Mean Corp Hgb Conc 34.9 g/dL (32-36); Mean Corpuscular Hgb 38.7 pg (27.0-32.0); Mean Corpuscular Volume 110.7 fL (81-99); Mean Platelet Vol. 8.3 fl (6.2-12.0); Monocyte# 0.52 X10^3/uL; Monocyte% 7.2 % (0-10); NRBC Flagged by Analyzer 0 % (0-5); Neutrophil # 5.48 X10^3/uL (2.7-7.7); Neutrophil % 76.2 % (47-70); Platelet Count 302 K/mm3 (150-450); RBC Distribution Width CV 12.2 % (11.6-14.6); RBC Distribution Width SD 50.2 fl (35.1-43.9); Red Blood Count 3.18 M/mm3 (4.2-5.4); White Blood Count 7.2 K/mm3 (4.4-11.0)
[2022-10-23 13:18] LABS: CRP 4.68 mg/L (0.0-3.0)
== END | disposition home or self-care (01) ==
LOC: LAB 11:24
PROVIDERS: PCP Nurse Practitioner Family; Referring Provider Ophthalmology; Visit Provider Ophthalmology
DX: H34.12 Central retinal artery occlusion, left eye (principal)
CPT/HCPCS: 36415; 85025; 85652; 86140

== ENCOUNTER → 2023-01-13 | Outpatient (CLI) | payer OTHER, SELFPAY ==
--- NOTE | 2023-01-13 10:02 | US_ITS ---
STUDY: ABDOMINAL ULTRASOUND - RIGHT UPPER QUADRANT; ELASTOGRAPHY REASON FOR VISIT: Female, 62 years old. History of liver fibrosis. TECHNIQUE: Ultrasound evaluation of the right upper quadrant was performed with real-time and static rider-scale imaging. Point quantification shear wave elastography was performed ([email or web address]). TECHNICAL QUALITY: Adequate. COMPARISON: Comparison is made with prior study dated January 21, 2022. FINDINGS: Liver: The liver measures 11 cm. There is increased echogenicity consistent with fatty infiltration. The bile ducts are within normal limits. There is hepatic color flow. The direction of portal flow is hepatopetal. There is no demonstrated mass lesion. Median liver stiffness measured 6.7 kPa. Gallbladder: Normal distended gallbladder. The gallbladder wall measures 2.1 mm. There is a negative sonographic Tong''s sign. There is no pericholecystic fluid. There are no gallstones. Common Bile Duct (C.B.D.): The common bile duct measures 3.0 mm. Pancreas: There is normal echogenicity of the visualized pancreas. The tail portion is obscured due to overlying bowel gas. There is no demonstrated pancreatic mass or cyst. Right Kidney: Normal size of the right kidney. The right kidney measures 10.9 cm x 5.7 cm x 4.9 cm. Normal renal cortex. The right cortex measures 1.5 cm. There is no demonstrated renal mass or cyst. There is no right hydronephrosis. US/ABD Limited w/ Elastography IMPRESSION: 1. Liver stiffness measures 6.7 kPa compatible with F2-F3 (Mild to moderate liver fibrosis) Metavir score. Electronically Signed: Jax Allen MD at 14:01 EDT ,
== END | disposition home or self-care (01) ==
LOC: US 10:01
PROVIDERS: PCP Nurse Practitioner Family; Referring Provider Nurse Practitioner Adult Health; Visit Provider Nurse Practitioner Adult Health
DX: K74.00 Hepatic fibrosis, unspecified (principal)
CPT/HCPCS: 76705; 76981

== ENCOUNTER → 2023-02-16 | Outpatient (CLI) | payer OTHER, SELFPAY | END | disposition home or self-care (01) | LOC: SL 19:45 | PROVIDERS: PCP Nurse Practitioner Family; Referring Provider Nurse Practitioner Family; Visit Provider Nurse Practitioner Family | DX: R06.83 Snoring (principal) | CPT/HCPCS: 95810 ==

== ENCOUNTER 2023-03-26 08:19 | Day surgery (SDC) | payer OTHER, SELFPAY ==
[2023-03-26] VITALS (7 sets, daily range): BP systolic 109–168; BP diastolic 66–89; PULSE 73–97; RESP 16–18; TEMP 36.2–36.5; O2SAT 95–98; BMI 28.5
[2023-03-26] MEDS: Lactated Ringers 1,000 ML 15 ML IV (08:53)
--- NOTE | 2023-03-26 09:23 | HP.PCM_ITS ---
History and Physical Date of Admission: 03/26/23 BARAK MEHTA, is a 62 F who presents to the office today for 6 month f/u liver fibrosis, constipation, Rocha's esophagus, hx adenomatous colon polyps. She had left carotid endarterectomy 10/03/22 after having retinal artery occlusion of left eye. She is now working on quitting smoking, down to 7-10 cigarettes per day, considering nicotine patch. She typically limits herself to 1 alcoholic beverage per day after diagnosis of liver fibrosis last year. Fundoplication for hiatal hernia in 2018. Still needs PPI therapy for reflux, takes nexium daily. Hx Rocha's esophagus. Has some difficulty with pills sticking in esophagus. Father had esophageal cancer. Bowels are better, her constipation resolved with flaxseed, mineral oil, Fiber Choice. Bowels have been regular with this regimen in addition to good fruit and vegetable intake. With resolution of constipation she hasn't had LUQ pain. Liver fibrosis -- 01/2022 elastography: liver stiffness 9.3 kPa, F2.? Colonoscopy 01.21.[address] Salcido finding large sessile tubular adenoma polyp. ROS Const Constitutional: Positive for headache(s); No fatigue ENT ENT: Positive for headache(s) and difficulty swallowing Gastro GI: Positive for constipation and difficulty swallowing; No abdominal pain, belching, bloating, change in bowel habits, change in stool character, coffee ground emesis, cramping, diarrhea, heartburn, feeling full early, excessive flatus, incontinent of stools, Vomiting blood/hematemesis, Blood in stool, loose stools, Black,tarry stools, nausea/dyspepsia, pain with swallowing, vomiting or other Musc Musculoskeletal: No joint pain Skin Skin: No yellowing of the eye or itchy eyes Neuro Neurology: Positive for headache(s) Psych Psychiatric: Positive for anxiety, Positive for depression and Positive for hyperactivity Endo Endocrine: No fatigue Aller/Imm Allergy/Immunologic: No itchy eyes Aaron/Lymp Hematologic/Lymphatic: No easy bleeding or easy bruising Exam Const General: cooperative and comfortable Nutritional Appearance: obese Orientation: alert, awake and oriented x3 Eyes Sclera: sclerae normal Skin General: no jaundice Quality Reporting Tobacco Screening ([facility] 138) Smoking Status: Current every day smoker Assessment and Plan Assessment and Plan (1) Liver fibrosis: Status: Chronic Plan: She has decreased alcohol intake. Will update elastography. Dr Tam's note discussed ursodiol and vitamin E but never prescribed. (2) Rocha's esophagus: Status: Acute Plan: Needs to update EGD for hx Rocha's as well as current dysphagia Congratulated her on decreasing cigarette use (3) History of colon polyps: Status: Acute Plan: Will update colonoscopy (4) Difficulty swallowing: Status: Acute Plan: as above Orders: Orders ABD Limited w/ Elastography Today K74.00 - Hepatic fibrosis, unspecified Medications: Discontinued oxycodone Discontinued Reason: Pt no longer taking 5 mg PO Q4H PRN 5 days PRN 30 tabs 0RF Pain Score 4-10 I65.22 - Occlusion and stenosis of left carotid artery Coding I have examined the patient and the H&P has been reviewed. There are no clinical changes since date of exam.
--- NOTE | 2023-03-26 09:30 | COLBX_PTH ---
PATIENT: BARAK MEHTA LOC: EN U#:[id number] AGE/SX: 62/F ROOM: RE03/26/[address]: Dr. Clifton Tam DO : 1960 BED: DIS: 03/26/2023 SPEC #: [id number] RECD: 03/26/23 11:09 STATUS: CHEL RESudha #: [id number] YUMIKO: 03/26/23 09:[address]: Clifton Tam DEPT: SURGICAL PATHOLOGY RECD BY: Nadya Cruz ENTERED: 03/26/23 12:33 SP TYPE: COLON BX OTHR DR: Kiarra Monk, TACK DRILLER-C Tissues: A - Esophagus, NOS B - Duodenum, NOS C - COLON BIOPSY D - Cecum, NOS E - Sigmoid colon biopsy Procedures: Special Stain Group II Special Stain Group I Surgery Specimen Level IV GMS Stain (control) Alcian Blue/PAS (control) HEADER OPERATION: Colonoscopy, EGD ([facility]), biopsy PRE-OP DIAGNOSIS: Liver fibrosis, Rocha's esophagus, history of colon polyps TISSUE SUBMITTED: A - Distal esophagus biopsy, B - Duodenum biopsy, C - Hepatic flexure polyp biopsy, D - Cecal cap polyp biopsy, E - Sigmoid polyp biopsy MICROSCOPIC DIAGNOSIS A. Distal esophagus, biopsy: Fragments of gastric mucosa with ulceration and associated acute and chronic inflammation and fibrinopurulent material. No evidence of goblet cell metaplasia. Negative for fungal organisms. See comment. B. Duodenum, biopsy: No significant pathologic change. See comment. C. Colonic polyp at hepatic flexure, biopsy: Tubular adenoma. D. Cecal cap polyp, biopsy: Fragments of tubular adenoma. E. Sigmoid colon polyp, biopsy: Fragments of serrated adenoma. AM:viola 03/27/2023 COMMENT A. Alcian blue/PAS stain with matched control supports the above diagnosis. GMS stain with matched control was used in the evaluation of this case. B. Villi are mildly attenuated. Clinical correlation is suggested. MICROSCOPIC DESCRIPTION Slides are reviewed. GROSS DESCRIPTION A - Received in fixative is one container labeled with the patient's name and designated distal esophagus biopsy. The specimen consists of multiple irregular fragments of light [place]ezc[place] soft tissue that in aggregate measure 0.8 x 0.3 x 0.1 cm. The specimen is totally submitted in one cassette. B - Received in fixative is one container labeled with the patient's name and designated duodenum biopsy. The specimen consists of multiple irregular fragments of light [place]ezc[place] soft tissue that in aggregate measure 0.8 x 0.3 x 0.1 cm. The specimen is totally submitted in one cassette. C - Received in fixative is one container labeled with the patient's name and designated hepatic flexure polyp. The specimen consists of one irregular fragment of light [place] soft tissue that measures 0.3 x 0.3 x 0.1 cm. The specimen is totally submitted in one cassette. D - Received in fixative is one container labeled with the patient's name and designated cecal cap polyp biopsy. The specimen consists of multiple irregular fragments of light [place]ezc[place] soft tissue that in aggregate measure 2.5 x 0.5 x 0.1 cm. The specimen is totally submitted in one cassette. E - Received in fixative is one container labeled with the patient's name and designated sigmoid polyp biopsy. The specimen consists of multiple irregular fragments of light amezcua soft tissue that in aggregate measure 0.6 x 0.3 x 0.1 cm. The specimen is totally submitted in one cassette. / SJ:viola 03/26/2023 TC:2 CPT: 02769 x5, 38182, 20957
--- NOTE | 2023-03-26 10:05 | OP.EGD_ITS ---
Patient Name: Shannan Costa Procedure Date: 03/26/2023 9:29 AM Date of : 1960 Age: 62 Procedure: Upper GI endoscopy Indications: Functional Dyspepsia, Dysphagia, Heartburn Providers: Clifton Tam DO Medicines: Monitored Anesthesia Care Patient Profile: This is a 62 year old female. Refer to note in patient chart for documentation of history and physical. Patient has symptoms. Complications: No immediate complications. Procedure: Pre-Anesthesia Assessment: - Prior to the procedure, a History and Physical was performed, and patient medications and allergies were reviewed. The patient is competent. The risks and benefits of the procedure and the sedation options and risks were discussed with the patient. All questions were answered and informed consent was obtained. Patient identification and proposed procedure were verified by the physician in the pre-procedure area. Mental Status Examination: alert and oriented. Airway Examination: normal oropharyngeal airway and neck mobility. Respiratory Examination: clear to auscultation. CV Examination: normal. Prophylactic Antibiotics: The patient does not require prophylactic antibiotics. Prior Anticoagulants: The patient has taken no anticoagulant or antiplatelet agents. ASA Grade Assessment: II - A patient with mild systemic disease. After reviewing the risks and benefits, the patient was deemed in satisfactory condition to undergo the procedure. The anesthesia plan was to use moderate sedation / analgesia (conscious sedation). Immediately prior to administration of medications, the patient was re-assessed for adequacy to receive sedatives. The heart rate, respiratory rate, oxygen saturations, blood pressure, adequacy of pulmonary ventilation, and response to care were monitored throughout the procedure. The physical status of the patient was re-assessed after the procedure. After obtaining informed consent, the endoscope was passed under direct vision. Throughout the procedure, the patient's blood pressure, pulse, and oxygen saturations were monitored continuously. The Colonoscope was introduced through the mouth, and advanced to the second part of duodenum. The upper GI endoscopy was accomplished without difficulty. The patient tolerated the procedure well. Scope In: 9:32:08 AM Scope Out: 9:36:27 AM Total Procedure Duration Time 0 hours 4 minutes 19 seconds Findings: LA Grade B (one or more mucosal breaks greater than 5 mm, not extending between the tops of two mucosal folds) esophagitis with bleeding was found 35 to 37 cm from the incisors. Biopsies were taken with a cold forceps for histology. Verification of patient identification for the specimen was done. Estimated blood loss was minimal. A moderate Schatzki ring was found at the gastroesophageal junction. A guidewire was placed and the scope was withdrawn. Dilation was performed with a Savary dilator with no resistance at 42 Fr. The dilation site was examined and showed mild improvement in luminal narrowing. Estimated blood loss was minimal. A medium-sized hiatal hernia was present. The cardia and gastric fundus were normal on retroflexion. Patchy mildly erythematous mucosa without active bleeding and with no stigmata of bleeding was found in the duodenal bulb, in the first portion of the duodenum and in the second portion of the duodenum. Biopsies were taken with a cold forceps for histology. Verification of patient identification for the specimen was done. Estimated blood loss was minimal. Impression: - LA Grade B reflux esophagitis with bleeding. Biopsied. - Moderate Schatzki ring. Dilated. - Medium-sized hiatal hernia. - Erythematous duodenopathy. Biopsied. Recommendation: - Discharge patient to home. - Resume previous diet. - Continue present medications. - Await pathology results. Procedure Code(s): --- Professional --- 19995, Esophagogastroduodenoscopy, flexible, transoral; with insertion of guide wire followed by passage of dilator(s) through esophagus over guide wire 87353, 59, Esophagogastroduodenoscopy, flexible, transoral; with biopsy, single or multiple CPT copyright 2021 [employer]. All rights reserved. The codes documented in this report are preliminary and upon allergy and immunology chief review may be revised to meet current compliance requirements. Clifton Tam DO 03/26/2023 10:04:53 AM This report has been signed electronically. Number of Addenda: 0 Note Initiated On: 03/26/2023 9:29 AM
--- NOTE | 2023-03-26 10:05 | OP.CCLET_ITS ---
03/26/2023 Renetta Aguirre Re : Upper GI endoscopy procedure for Shannan Costa Dear Lacho This procedure was performed on March. My impressions and recommendations are as follows: Impressions : - LA Grade B reflux esophagitis with bleeding. Biopsied. - Moderate Schatzki ring. Dilated. - Medium-sized hiatal hernia. - Erythematous duodenopathy. Biopsied. Recommendations : - Discharge patient to home. - Resume previous diet. - Continue present medications. - Await pathology results. My findings are described in the full procedure note, which is enclosed. If I can be of further assistance, please feel free to contact me at . Sincerely, Clifton Tam, 03/26/2023 10:04:53 AM This report has been signed electronically.
--- NOTE | 2023-03-26 10:07 | OP.COLON_ITS ---
Patient Name: Shannan Costa Procedure Date: 03/26/2023 9:36 AM Date of : 1960 Age: 62 Procedure: Colonoscopy Indications: Screening for colorectal malignant neoplasm Providers: Clifton Tam DO Medicines: Monitored Anesthesia Care Patient Profile: This is a 62 year old female. Refer to note in patient chart for documentation of history and physical. Patient has symptoms. Last Colonoscopy: date unknown. Unable to locate last colonoscopy report. Complications: No immediate complications. Procedure: Pre-Anesthesia Assessment: - Prior to the procedure, a History and Physical was performed, and patient medications and allergies were reviewed. The patient is competent. The risks and benefits of the procedure and the sedation options and risks were discussed with the patient. All questions were answered and informed consent was obtained. Patient identification and proposed procedure were verified by the physician in the pre-procedure area. Mental Status Examination: alert and oriented. Airway Examination: normal oropharyngeal airway and neck mobility. Respiratory Examination: clear to auscultation. CV Examination: normal. Prophylactic Antibiotics: The patient does not require prophylactic antibiotics. Prior Anticoagulants: The patient has taken no anticoagulant or antiplatelet agents. ASA Grade Assessment: II - A patient with mild systemic disease. After reviewing the risks and benefits, the patient was deemed in satisfactory condition to undergo the procedure. The anesthesia plan was to use moderate sedation / analgesia (conscious sedation). Immediately prior to administration of medications, the patient was re-assessed for adequacy to receive sedatives. The heart rate, respiratory rate, oxygen saturations, blood pressure, adequacy of pulmonary ventilation, and response to care were monitored throughout the procedure. The physical status of the patient was re-assessed after the procedure. After I obtained informed consent, the scope was passed under direct vision. Throughout the procedure, the patient's blood pressure, pulse, and oxygen saturations were monitored continuously. The Colonoscope was introduced through the anus and advanced to the cecum, identified by appendiceal orifice and ileocecal valve. The colonoscopy was performed without difficulty. The patient tolerated the procedure well. The quality of the bowel preparation was adequate. The ileocecal valve, appendiceal orifice, and rectum were photographed. Scope In: 9:38:34 AM Scope Withdrawal Time 0 hours 10 minutes 27 seconds Scope Out: 9:57:51 AM Total Procedure Duration Time 0 hours 19 minutes 17 seconds Findings: The perianal and digital rectal examinations were normal. Multiple small and large-mouthed diverticula were found in the recto-sigmoid colon, sigmoid colon and descending colon. Three sessile polyps were found in the sigmoid colon and cecum. The polyps were 1 to 2 mm in size. These polyps were removed with a cold snare. Resection and retrieval were complete. Verification of patient identification for the specimen was done. Estimated blood loss was minimal. Impression: - Diverticulosis in the recto-sigmoid colon, in the sigmoid colon and in the descending colon. - Three 1 to 2 mm polyps in the sigmoid colon and in the cecum, removed with a cold snare. Resected and retrieved. Recommendation: - Repeat colonoscopy in 5 years for surveillance. - Continue present medications. Procedure Code(s): --- Professional --- 54674, Colonoscopy, flexible; with removal of tumor(s), polyp(s), or other lesion(s) by snare technique CPT copyright 2021 [employer]. All rights reserved. The codes documented in this report are preliminary and upon flat knitter helper review may be revised to meet current compliance requirements. Clifton Tam DO 03/26/2023 10:07:36 AM This report has been signed electronically. Number of Addenda: 0 Note Initiated On: 03/26/2023 9:36 AM
--- NOTE | 2023-03-26 10:08 | OP.CCLET_ITS ---
03/26/2023 Renetta Aguirre Re : Colonoscopy procedure for Shannan Costa Dear Lacho This procedure was performed on March. My impressions and recommendations are as follows: Impressions : - Diverticulosis in the recto-sigmoid colon, in the sigmoid colon and in the descending colon. - Three 1 to 2 mm polyps in the sigmoid colon and in the cecum, removed with a cold snare. Resected and retrieved. Recommendations : - Repeat colonoscopy in 5 years for surveillance. - Continue present medications. My findings are described in the full procedure note, which is enclosed. If I can be of further assistance, please feel free to contact me at . Sincerely, Clifton Tam, 03/26/2023 10:07:36 AM This report has been signed electronically.
== END 2023-03-26 10:39 | disposition home or self-care (01) ==
LOC: EN 08:20 → AC 08:22
PROVIDERS: PCP Nurse Practitioner Family; Referring Provider Nurse Practitioner Family; Visit Provider Internal Medicine Gastroenterology
PROC: 0DJD8ZZ Inspection of Lower Intestinal Tract, Via Natural or Artificial Opening Endoscopic (ICD-10-PCS; CPT 45378; principal; 2023-03-26 09:25)
DX: Z12.11 Encounter for screening for malignant neoplasm of colon (principal); J44.9 Chronic obstructive pulmonary disease, unspecified; K44.9 Diaphragmatic hernia without obstruction or gangrene; K57.30 Diverticulosis of large intestine without perforation or abscess without bleeding; F17.210 Nicotine dependence, cigarettes, uncomplicated; K74.00 Hepatic fibrosis, unspecified; Z86.010 Personal history of colon polyps; K22.70 Barrett's esophagus without dysplasia; Z87.19 Personal history of other diseases of the digestive system; K21.01 Gastro-esophageal reflux disease with esophagitis, with bleeding; K22.2 Esophageal obstruction; D12.3 Benign neoplasm of transverse colon; D12.0 Benign neoplasm of cecum; D12.5 Benign neoplasm of sigmoid colon; Z79.890 Hormone replacement therapy; Z79.899 Other long term (current) drug therapy; Z79.82 Long term (current) use of aspirin; Z79.51 Long term (current) use of inhaled steroids; I10 Essential (primary) hypertension; E66.9 Obesity, unspecified; E78.00 Pure hypercholesterolemia, unspecified; E03.9 Hypothyroidism, unspecified; Z68.28 Body mass index [BMI] 28.0-28.9, adult
CPT/HCPCS: 45385; 43239; 43248; 88305; 88312; 88313; J7120; J2405

== ENCOUNTER → 2023-04-15 | Outpatient (CLI) | payer OTHER, SELFPAY ==
--- NOTE | 2023-04-15 10:03 | CDU_ITS ---
Reason For Study: S/P Lt CEA Rt. Velocities/BP Lt. Velocities/BP Prox CCA 72.9/13.5 cm/sec. Prox CCA 97.4/24.9 cm/sec. Mid CCA 65.2/13.5 cm/sec. Mid CCA 69.3/24.2 cm/sec. Dist CCA 69.6/17.9 cm/sec. Dist CCA 70.2/25.2 cm/sec. Prox ICA 68.5/27.8 cm/sec. Prox ICA 88.4/30.9 cm/sec. Mid ICA 99.2/27.9 cm/sec. Mid ICA 104.0/38.7 cm/sec. Dist ICA 110.1/37.1 cm/sec. Dist ICA 119.3/46.2 cm/sec. Rt. ICA/CCA = 1.7. Lt. ICA/CCA = 1.7. Prox ECA 133.9/31.6 cm/sec. Prox ECA 275.7/43.0 cm/sec. Rt. Vert. 38.9/8.7 cm/sec. Lt. Vert. Non-Visualized. Right Extracranial There is heterogeneous, irregular atherosclerotic plaque noted in the right common carotid artery. There is heterogeneous, irregular atherosclerotic plaque noted in the right internal carotid artery. There is heterogeneous, irregular atherosclerotic plaque noted in the right external carotid artery. Antegrade flow is noted in the right vertebral artery. Left Extracranial There is heterogeneous, irregular atherosclerotic plaque noted in the left common carotid artery. There is heterogeneous, irregular atherosclerotic plaque noted in the left internal carotid artery. HX of Lt CEA. There is heterogeneous, irregular atherosclerotic plaque noted in the left external carotid artery. The left vertebral artery could not be visualized. Procedure Carotid Duplex 55089. This is a Carotid Duplex examination using B-mode, color flow and specral Doppler. The exam was diagnostic. Exam performed in department. VL/Carotid Duplex Ultrasound Interpretation Summary Mild (<50%) stenosis right extracranial internal carotid. Mild (<50%) stenosis left extracranial internal carotid. Patent and antegrade vertebrals bilaterally. Ordering Physician: Shannan Garvin Referring Physician: Kiarra Monk Performed By: Jaswinder Daly RVT
== END | disposition home or self-care (01) ==
LOC: CVS 10:02
PROVIDERS: PCP Nurse Practitioner Family; Referring Provider Physician Assistant; Visit Provider Physician Assistant
DX: I65.22 Occlusion and stenosis of left carotid artery (principal); Z98.890 Other specified postprocedural states
CPT/HCPCS: 93880

== ENCOUNTER 2023-05-12 21:42 | Emergency (ER) | payer OTHER, SELFPAY ==
[2023-05-12 21:46] VITALS: BP 138/82; PULSE 87; RESP 23; TEMP 36.5; O2SAT 90; BMI 30.2
[2023-05-12 21:50] VITALS: O2SAT 91
--- NOTE | 2023-05-12 22:06 | EKG12_ITS ---
Test Reason : PALPITATIONS/BACK PAIN Blood Pressure : / mmHG Vent. Rate : 086 BPM Atrial Rate : 086 BPM P-R Int : 186 ms QRS Dur : 092 ms QT Int : 358 ms P-R-T Axes : 060 053 065 degrees QTc Int : 428 ms Normal sinus rhythm Normal ECG Confirmed by DIETER DURAN, PETRONA ([id number]), makeup editor ALYCE AN ([id number]) on 05/18/2023 8:33:43 AM Referred By: TARA Confirmed By:RUTH ANN GARCIAS MD
--- NOTE | 2023-05-12 22:07 | EDS_ITS ---
HPI History of Present Illness Chief Complaint: Back Informant: patient Narrative Narrative: Presents by EMS increasing left upper back pain after coughing. States pain went right through her chest. Worse with movement. Denies trauma. Edition reports palpitations for the past week in the mornings. Occasional lightheaded symptoms. Had 1 vomiting episodes throughout the week. None since. No diarrhea. Hypothyroid on medications. Denies cough. Denies history of similar. Denies history of gastric ulcers or kidney injury. PFSH PFS Medical History Abdominal pain Abnormal alkaline phosphatase test Acute bronchitis with COPD Anxiety Asthma Central retinal artery occlusion of left eye Chronic cough Constipation COPD (chronic obstructive pulmonary disease) Degenerative disc disease Depression Difficulty swallowing Esophageal dilatation Fatty liver GERD (gastroesophageal reflux disease) Heartburn High cholesterol History of diverticulitis History of echocardiogram History of hiatal hernia History of stress test HTN (hypertension) Hypercholesteremia Hyponatremia Hypothyroidism Obesity (BMI 30.0-34.9) On home oxygen therapy Osteoporosis Pneumonia Post-menopausal Psoriasis Restless legs Shortness of breath on exertion Smoker Stage 1 mild COPD by GOLD classification Stenosis of left internal carotid artery Thyroglossal duct cyst Thyroid disease Tobacco use Vitamin D deficiency Wears glasses Home Medications albuterol sulfate 90 mcg/actuation aerosol inhaler 2 puff inhalation Q4H PRN PRN Sob &/Or Wheezing 09/01/17 [History Last Taken 10/03/22 07:45] clonidine HCl 0.1 mg tablet 0.1 mg PO TID blood pressure 09/01/17 [History Last Taken 03/26/23] fish oil-dha-epa 1,200 mg-144 mg-216 mg capsule 1 ea PO BID supplement 09/01/17 [History Last Taken 03/23/23] losartan 100 mg tablet 100 mg PO DAILY blood pressure 09/01/17 [History Last Taken 03/26/23] nebulizers #1 ea 09/04/17 [Rx Last Taken Unknown] multivitamin (Multiple Vitamins tablet) 1 tab PO DAILY health maintenance 04/20/18 [History Last Taken 03/23/23] denosumab 60 mg/mL subcutaneous syringe (Prolia) 60 mg subcut [id number] health maintenance 10/07/21 [History Last Taken Unknown] fluticasone propionate 50 mcg/actuation nasal spray,suspension (Flonase Allergy Relief) 1 spray intranasal QDAY health maintenance 09/18/22 [History Last Taken 09/17/22 09:00] aspirin 81 mg chewable tablet 81 mg PO DAILY Check with primary doctor 09/19/22 [History Last Taken 03/23/23] rosuvastatin 20 mg tablet 20 mg PO QHS cholesterol 09/23/22 [History Last Taken Unknown] diltiazem HCl 180 mg capsule,extended release 24 hr 240 mg PO DAILY heart/blood pressure 09/30/22 [History Last Taken 03/26/23] levothyroxine 75 mcg tablet 88 mcg PO DAILY thyroid 09/30/22 [History Last Taken 03/26/23] venlafaxine 75 mg capsule,extended release 24 hr 75 mg PO QHS health maintenance 12/08/22 [History Last Taken Unknown] cholecalciferol (vitamin D3) 125 mcg (5,000 unit) tablet (Vitamin D3) 5,000 unit PO MOWEFR 03/25/23 [History Last Taken Unknown] fluticasone fur. 100 mcg-umeclid 62.5 mcg-vilant 25 mcg inhalat.powder (Trelegy Ellipta) 1 inh inhalation DAILY 03/25/23 [History Last Taken 03/26/23] venlafaxine 37.5 mg capsule,extended release 24 hr 37.5 mg PO QHS 03/25/23 [History Last Taken Unknown] esomeprazole magnesium 40 mg capsule,delayed release (Nexium) 40 mg PO BID health maintenance 30 days #60 caps 05/01/23 [Rx Last Taken Unknown] potassium chloride 20 mEq tablet,extended release(part/cryst) 20 meq PO DAILY #5 tabs 05/12/23 [Rx Last Taken Unknown] prednisone 20 mg tablet 60 mg (3 x 20 mg) PO DAILY #12 TABLETS 05/12/23 [Rx Last Taken Unknown] Allergy/AdvReac Type Severity Reaction Status Date / Time amlodipine Allergy Swelling Verified 05/12/23 21:51 hydrochlorothiazide Allergy Other Verified 05/12/23 21:51 lisinopril Allergy cough Verified 05/12/23 21:51 Penicillins Allergy Rash Verified 05/12/23 21:51 Family History Mother Hypertension PVD (peripheral vascular disease) Thyroid disorder Father Diabetes Esophageal cancer Surgical History H/O section H/O hernia repair History of thyroglossal duct cyst removal Hx of surgical procedure Social History Smoking Status: Current every day smoker tobacco type: cigarettes Tobacco: How many years used: 35 second hand exposure: Yes alcohol intake: current alcohol intake frequency: holidays/special occasions only substance use type: does not use caffeine: Yes Type: coffee what type of physical activity do you participate in: walking frequency: 3-4 times per week ROS ROS ED Constitutional Constitutional ED: Denies chills, fever(s) or sweats Eyes Eyes: Denies change in vision ENT ENT ED: Denies dysphagia or sore throat Cardiovascular Cardiovascular: Reports palpitations; Denies chest pain, leg edema or racing heartbeat Respiratory/Chest Respiratory/Chest: Denies cough, dyspnea or dyspnea on exertion Gastrointestinal Gastrointestinal: Denies abdominal pain, diarrhea, nausea or vomiting Genitourinary Genitourinary ED: Denies dysuria, hematuria or urinary frequency Musculoskeletal Musculoskeletal: Reports back pain; Denies extremity pain or neck pain Integumentary Denies rash or wounds Neurologic Neurologic: Denies headache(s), paresthesias or weakness EXAM Physical Exam Const Vital Signs: 05/12/23 21:46 05/12/23 21:50 05/12/23 22:57 Temperature 97.7 F L Temperature Source Temporal Pulse Rate 87 100 Respiratory Rate 23 H 20 H Respiratory Effort Normal Non-Labored Respiratory Depth Normal Respiratory Pattern Normal Normal Blood Pressure 138/82 H Blood Pressure Mean 100 Pulse Ox 90 Oxygen Delivery Method Room Air Room Air Positive well nourished and well developed General Appearance ED: well developed and NAD HEENT Reports moist mucous membranes normocephalic and atraumatic Eyes PERRL, EOMs intact bilaterally and conjunctivae normal General Eye ED: Yes normal appearance of both eyes Neck no lymphadenopathy and supple General: Negative for tenderness Chest Wall Chest: Negative for tenderness Resp normal respiratory effort and normal air movement Effort and Inspection: symmetric chest movement; Negative for respiratory distress Cardio regular rate, regular rhythm and no murmurs Peripheral Pulses: pulses 2+ throughout GI normal to inspection, nondistended, normoactive bowel sounds and non-tender Palpation: Negative for guarding or rebound tenderness present Back/Spine no CVA tenderness Back/Spine Narrative: Somatic dysfunction palpated T8-T9 on the left reproducible with rotation and side bend to the left. Extremity normal to inspection General Extremety ED: Negative for edema or tenderness General Extremity: Negative for edema Neuro oriented x3 and no sensory deficits noted Sensorium / Orientation: awake and alert Skin no rashes or lesions noted and no wounds MDM MDM MDM Narrative Medical decision making narrative: Interventions / MDM: Differential diagnosis: Somatic function thoracic spine, COPD Diagnosis considered but do not suspect: Pneumonia however x-ray negative. Pneumothorax also negative x-ray. My EKG interpretation: Sinus rate of 86, no ST or T wave changes QTc 428. Imaging independently reviewed and interpreted by myself: 5 view x-ray left ribs with PA chest: Dextroscoliosis noted. No rib fractures. No pneumothorax. External documents reviewed: N/A Test considered but not ordered:N/A ED course: Patient clinical exam with some aspects thoracic spine she has osteopenia history. Performed physical positional release thoracic spine with improvement of symptoms. She has had palpitations been intermittent EKG sinus. We will check basic labs, check rib series x-ray with PA chest. 2355: X-ray no fracture no pneumothorax no pneumonia. Labs potassium 2.8 magnesium added is normal oral replacement was given. EKG without changes. Coughing episodes in the ED improved with aerosol treatments. Chronic dry cough, no antibiotics indicated. However she is started on steroids. Spouse was present, talked treatment techniques with her somatic dysfunction bedside. She will continue Tylenol, prednisone also with help with inflammation. She declined any muscle relaxers. She will follow-up with her PCP. All questions were answered. Re-evaluation: stable Disposition discussed with patient/family/significant other: Patient and signi ficant other Case discussed with consulting clinician: N/A This note was generated with [employer] dictation software. It may contain incorrect words, spelling, and punctuation that were not noted in checking the note before signing. Lab Data Attestation: I reviewed the patient's lab results. Labs: Laboratory Results - last 24 hr 05/12/23 22:16 WBC 9.0 RBC 3.58 L Hgb 13.1 Hct 37.9 MCV 105.9 H MCH 36.6 H MCHC 34.6 RDW Std Deviation 49.6 H RDW Coeff of Alex 12.8 Plt Count 241 MPV 8.1 Immature Gran % (Auto) 0.600 Neut % (Auto) 73.4 H Lymph % (Auto) 17.6 L Gila % (Auto) 8.3 Eos % (Auto) 0.0 Baso % (Auto) 0.1 Absolute Neuts (auto) 6.6 Absolute Lymphs (auto) 1.59 Nucleated RBC % 0 Sodium 134 L Potassium 2.8 L Chloride 97 L Carbon Dioxide 28.0 Anion Gap 9 BUN 7 Creatinine 0.84 Estim Creat Clear Calc 51.06 Est GFR (MDRD) Af Amer 88 Est GFR (MDRD) Non-Af 72 BUN/Creatinine Ratio 8.3 L Glucose 109 H Calcium 10.0 Magnesium 2.1 Radiography Diagnostic Testing: Clinical Impression(s) from Imaging Studies Ribs w/Chest X-Ray 05/12/23 22:25 IMPRESSION: Hyperexpansion as can be seen with chronic obstructive pulmonary disease. Right lateral basilar subsegmental atelectasis. No visible fracture. CT could further evaluate as clinically indicated. Electronically Signed: Adolph Jiang MD at 23:02 EST Reading Location ID and State: [facility] / [place] Tel , Service support , Discharge Plan Triage Chief Complaint: Back ED Provider: Dayron Barraza Dx/Rx/DC Orders Clinical Impression: Palpitations, Somatic dysfunction of spine, thoracic, COPD (chronic obstructive pulmonary disease), Acute hypokalemia Instructions: ED Back Pain (Acute or Chronic), ED COPD Flare, ED Palpitations Prescriptions: New prednisone 20 mg tablet 60 mg PO DAILY Qty: 12 0RF potassium chloride 20 mEq tablet,ER particles/crystals 20 meq PO DAILY Qty: 5 0RF No Action multivitamin [Multiple Vitamins] tablet 1 tab PO DAILY levothyroxine 75 mcg tablet 88 mcg PO DAILY Rx Instructions: THU-THU DAILY, TWO ON THURSDAY Prolia 60 mg/mL syringe 60 mg subcut [id number] clonidine HCl 0.1 MG tablet 0.1 mg PO TID albuterol sulfate 1 PUFF inhaler 2 puff Inhalation Q4H PRN PRN (Reason: Sob &/Or Wheezing) losartan 100 MG tablet 100 mg PO DAILY fish oil-dha-epa 1 EACH capsule 1 ea PO BID (DME) nebulizers 1 EACH misc 1 ea miscellaneous UD Qty: 1 0RF Rx Instructions: Nebulizer machine and kit x 1 Dx: COPD exac, PNA, RSV B Use as directed per aerosols. diltiazem HCl 180 mg capsule,extended release 24hr 240 mg PO DAILY fluticasone propionate [Flonase Allergy Relief] 50 mcg/actuation spray,susp ension 1 spray Intranasal QDAY Rx Instructions: administer into each nostril aspirin 81 mg Tablet,Chewable 81 mg PO DAILY venlafaxine 75 mg capsule,extended release 24hr 75 mg PO QHS rosuvastatin 20 mg tablet 20 mg PO QHS Rx Instructions: take daily cholecalciferol (vitamin D3) [Vitamin D3] 125 mcg (5,000 unit) tablet 5,000 unit PO MOWEFR venlafaxine 37.5 mg capsule,extended release 24hr 37.5 mg PO QHS Patient Comments: TAKE 1 CAPSULE BY MOUTH EVERY DAY Trelegy Ellipta 100-62.5-25 mcg blister with device 1 inh inhalation DAILY esomeprazole magnesium [Nexium] 40 mg capsule,delayed release(DR/EC) 40 mg PO BID 30 Days Qty: 60 2RF Primary Care Provider: Kiarra Monk Referrals: Kiarra Monk, MARGOTH-C [Primary Care Provider] - Activity Restrictions/Additional Instructions: EKG normal. Rib series x-ray normal. Exam concerns for somatic function thoracic spine. Palpitations with potassium 2.8. Continue oral replacement as prescribed. COPD history with cough and wheeze. Take steroid as prescribed. Follow-up with your doctor. Disposition Disposition: Home, Self Care
[2023-05-12] MEDS: Ketorolac 15 MG/ML Vial IV (22:12)
[2023-05-12 22:20] LABS: Absolute Lymphocyte Count 1.59 X10^3/uL (0.83-4.51); Absolute Neutrophil Count 6.6 X10^3/uL (2.0-7.7); Basophil# 0.01 X10^3/uL; Basophil% 0.1 % (0-1); Hematocrit 37.9 % (37-47); Hemoglobin 13.1 g/dL (12.0-15.0); Lymphocyte # 1.59 X10^3/ul (0.83-4.51); Lymphocyte % 17.6 % (19-41); Mean Corp Hgb Conc 34.6 g/dL (32-36); Mean Corpuscular Hgb 36.6 pg (27.0-32.0); Mean Corpuscular Volume 105.9 fL (81-99); Mean Platelet Vol. 8.1 fl (6.2-12.0); Monocyte# 0.75 X10^3/uL; Monocyte% 8.3 % (0-10); NRBC Flagged by Analyzer 0 % (0-5); Neutrophil # 6.62 X10^3/uL (2.7-7.7); Neutrophil % 73.4 % (47-70); Platelet Count 241 K/mm3 (150-450); RBC Distribution Width CV 12.8 % (11.6-14.6); RBC Distribution Width SD 49.6 fl (35.1-43.9); Red Blood Count 3.58 M/mm3 (4.2-5.4)
--- NOTE | 2023-05-12 22:25 | RAD_ITS ---
INDICATION: pain EXAMINATION/TECHNIQUE: X-RAY - XR Ribs Unilateral W/ PA Chest Min 3 Views COMPARISON: September 18, 2022. FINDINGS: SOFT TISSUES: Right lateral basilar atelectasis. Aortic atherosclerosis. BONES: Lungs symmetrically hyperexpanded. No displaced fracture. No sclerotic or destructive changes observed. Lateral curvature of the thoracolumbar spine. VISUALIZED LUNGS: Clear. No pneumothorax. RAD/Ribs Uni Min 3V w/PA Chest IMPRESSION: Hyperexpansion as can be seen with chronic obstructive pulmonary disease. Right lateral basilar subsegmental atelectasis. No visible fracture. CT could further evaluate as clinically indicated. Electronically Signed: Adolph Jiang MD at 23:02 EST ,
[2023-05-12 22:37] LABS: Anion Gap 9 (5-15); BUN 7 mg/dL (7-18); BUN/Creat Ratio 8.3 RATIO (10-20); Chloride 97 mmol/L (98-107); Creatinine, Serum 0.84 mg/dL (0.55-1.02); EST Glomerular Filtration Rate 72 mL/min (>60); Est Glom Filt Rate - Afr Amer 88 mL/min (>60); Estimated Creatinine Clearance 51.06 ml/min; Glucose 109 mg/dL (74-106); Potassium 2.8 mmol/L (3.5-5.1); Sodium Level 134 mmol/L (136-145)
[2023-05-12 22:57] VITALS: PULSE 100; RESP 20
[2023-05-12] MEDS: Ipratropium/Albuterol Sulfate 3 ML AMPUL.NEB INHALATION (22:57)
[2023-05-12] MEDS: Potassium Chloride Oral Tablet 20 MEQ 40 MEQ PO (23:21)
[2023-05-12 23:39] LABS: Magnesium 2.1 mg/dL (1.6-2.6)
[2023-05-13] MEDS: predniSONE 20 MG Tablet 60 MG PO (00:06)
[2023-05-13 00:07] VITALS: BP 127/73; PULSE 88; RESP 20; O2SAT 95
[2023-05-13 00:41] VITALS: BP 122/66; PULSE 79; RESP 16; O2SAT 96
== END 2023-05-13 00:43 | disposition home or self-care (01) ==
PROVIDERS: Emergency Provider Emergency Medicine; PCP Nurse Practitioner Family; Visit Provider Emergency Medicine
DX: M99.02 Segmental and somatic dysfunction of thoracic region (principal); J44.9 Chronic obstructive pulmonary disease, unspecified; E87.6 Hypokalemia; E78.00 Pure hypercholesterolemia, unspecified; I10 Essential (primary) hypertension; F17.210 Nicotine dependence, cigarettes, uncomplicated; Z79.52 Long term (current) use of systemic steroids; E03.9 Hypothyroidism, unspecified; J93.9 Pneumothorax, unspecified; R00.2 Palpitations; Z79.890 Hormone replacement therapy
CPT/HCPCS: 71101; 80048; 83735; 85025; 93005; 94640; 96374; 99285; A4216

== ENCOUNTER → 2023-05-27 | Outpatient (CLI) | payer OTHER, SELFPAY ==
[2023-05-27 13:34] LABS: ALB/GLOB Ratio 1.1 RATIO (0.9-2.4); AST(SGOT) 74 U/L (15-37); Alanine Aminotransfer ALT/SGPT 98 U/L (13-56); Alkaline Phosphatase 146 U/L (45-117); Anion Gap 11 (5-15); BUN 10 mg/dL (7-18); BUN/Creat Ratio 12.6 RATIO (10-20); Calcium,Total 9.6 mg/dL (8.5-10.1); Chloride 96 mmol/L (98-107); EST Glomerular Filtration Rate 77 mL/min (>60); Est Glom Filt Rate - Afr Amer 94 mL/min (>60); Globulin 3.5 g/dL (2.2-4.2); Glucose 101 mg/dL (74-106); Potassium 4.1 mmol/L (3.5-5.1); Protein, Total 7.5 g/dL (6.4-8.2); Sodium Level 138 mmol/L (136-145)
== END | disposition home or self-care (01) ==
LOC: LABSPEC 12:37
PROVIDERS: PCP Nurse Practitioner Family; Visit Provider Nurse Practitioner Family
DX: E87.6 Hypokalemia (principal)
CPT/HCPCS: 80053

== ENCOUNTER → 2023-09-29 | Outpatient (CLI) | payer OTHER, SELFPAY ==
--- NOTE | 2023-09-29 12:36 | BI_ITS ---
MAMMOGRAPHY - BILATERAL SCREENING REASON FOR EXAM: Female, 63 years old. Routine annual screening examination. PERTINENT HISTORY: Non-contributory. TECHNIQUE: Digital bilateral breast davion (3D mammographic acquisition) in the CC and MLO projections. 2-D mediolateral oblique (MLO) and craniocaudad (CC) views of both breasts were obtained. CAD: Full Field Digital Mammography with Computer Added Detection was performed. COMPARISON: Comparison is made with prior study April 22, 2022 and March 05, 2021. FINDINGS: Breast Composition: The breasts are heterogeneously dense, which may obscure small masses. There are no dominant masses or suspicious calcifications. Stable small benign-appearing bilateral axillary lymph nodes. No other significant abnormalities are identified. There has been no significant change since the prior study. BI/SCRN MAMM (CAD)W/DAVION BILAT IMPRESSION: Stable bilateral screening mammogram. Yearly follow-up mammogram recommended. (A) ASSESSMENT CATEGORY: BIRADS Category 2: Benign. A letter regarding these results will be sent to the patient by the facility within 30 days. Approximately 10% of breast cancers are not detected by mammography. A normal mammogram should not delay biopsy of a clinically suspicious abnormality. [id number] Electronically Signed: Jax Allen MD at 13:57 EDT ,
== END | disposition home or self-care (01) ==
LOC: OPBI 12:36
PROVIDERS: PCP Nurse Practitioner Family; Referring Provider Nurse Practitioner Family; Visit Provider Nurse Practitioner Family
DX: Z12.31 Encounter for screening mammogram for malignant neoplasm of breast (principal)
CPT/HCPCS: 77063; 77067

== ENCOUNTER → 2023-10-07 | Outpatient (CLI) | payer OTHER, SELFPAY ==
--- NOTE | 2023-10-07 10:47 | CDU_ITS ---
Reason For Study: S/P LT CEA Rt. Velocities/BP Lt. Velocities/BP Prox CCA 58.1/16.4 cm/sec. Prox CCA 65.5/18.7 cm/sec. Mid CCA 51.5/15.3 cm/sec. Mid CCA 73.2/20.4 cm/sec. Dist CCA 49.3/14.2 cm/sec. Dist CCA 63.4/20.4 cm/sec. Prox ICA 54.8/23 cm/sec. Prox ICA 76.9/30.2 cm/sec. Mid ICA 59.2/15.3 cm/sec. Mid ICA 91.8/33.6 cm/sec. Dist ICA 105.8/30 cm/sec. Dist ICA 76.9/29 cm/sec. Rt. ICA/CCA = 2.1. Lt. ICA/CCA = 1.3. Prox ECA 101.4/12.4 cm/sec. Prox ECA 192.3/36.4 cm/sec. Rt. Vert. 31.8/13.1 cm/sec. Lt. Vert. 39.8/12.5 cm/sec. Right Extracranial There is heterogeneous, irregular atherosclerotic plaque noted in the right common carotid artery. There is heterogeneous, irregular atherosclerotic plaque noted in the right internal carotid artery. There is heterogeneous, irregular atherosclerotic plaque noted in the right external carotid artery. Antegrade flow is noted in the right vertebral artery. Left Extracranial There is heterogeneous, smooth atherosclerotic plaque noted in the left common carotid artery. There is heterogeneous, irregular atherosclerotic plaque noted in the left internal carotid artery. S/P LT CEA. There is heterogeneous, irregular atherosclerotic plaque noted in the left external carotid artery. Antegrade flow is noted in the left vertebral artery. Procedure Carotid Duplex 08129. This is a Carotid Duplex examination using B-mode, color flow and specral Doppler. The exam was diagnostic. Exam performed in department. VL/Carotid Duplex Ultrasound Interpretation Summary Mild (<50%) stenosis right extracranial internal carotid. Mild (<50%) stenosis left extracranial internal carotid. Patent and antegrade vertebrals bilaterally. Ordering Physician: Shannan Garvin Referring Physician: Kiarra Monk Performed By: Jaswinder Daly RVT and Student
== END | disposition home or self-care (01) ==
LOC: CVS 10:46
PROVIDERS: PCP Nurse Practitioner Family; Referring Provider Physician Assistant; Visit Provider Physician Assistant
DX: Z98.890 Other specified postprocedural states (principal)
CPT/HCPCS: 93880

== ENCOUNTER 2023-10-30 11:00 | Outpatient (RCR) | payer OTHER, SELFPAY ==
--- NOTE | 2023-06-17 13:32 | HP.PTEVAL_ITS ---
Patient's Visit Information Visit Information Visit Information: BARAK MEHTA is a 63 year old F referred to Physical Therapy by BEATRIS Aguirre with a diagnosis of THORACIC SOMATIC DYSFUNCTION. Date of Evaluation: 06/17/23 Physical Therapist: Janet Heard PT, Cert MDT Visit Plan Frequency: 2x /Week Duration: 4-6 Weeks Plan: *OSTEOPOROSIS* POSTURE CORRECTION/STRENGTHENING, INSTRUCTION IN APPROPRIATE BODY MECHANICS AND ACTIVITY MODIFICATIONS. DLS WITH A NEUTRAL SPINE TOLERATED. WAGNER LE ROM, STRETCHING AND STRENGTHENING. HEP INSTRUCTION. Subjective Subjective: Work/Leisure: HOMEMAKER Disability: NO Present symptoms: MID BACK PAIN AND LOW BACK AND HIP PAIN. NO NUMBNESS OR TINGLING IN ARMS OR LEGS. Present since: APPROX 05/25/23 Pain Scale: WORST 8/10, LEAST 3/10 Currently: 4/10 Is it getting better, worse or staying the same: GETTING BETTER Commenced as a result of: NO APPARENT REASON Symptoms at onset: SEVERE MID BACK AND L RIB CAGE AREA PAIN RADIATING AROUND TO THE FRONT. Worse: BRA, GETTING UP AND DOWN, DOING TOO MUCH, WALKING, TWISTING, BENDING, LIFTING Better: RELAXING, ICE PACK, HEAT, STAYING STILL, LYING ON BACK, SITTING IN ROCKER, SITTING IN KITCHEN CHAIR IS THE BEST. Disturbed sleep: WHEN TURNING OVER. Previous history/Previous treatment: H/O L2/3 COMPRESSION FX'S PRIOR TO 2018 FOR NO APPARENT REASON. PT IN 2018 FOR MID AND LOW BACK PAIN AFTER BEING HOSPITALIZED FOR COUGH THAT EXACERBATED BACK PAIN AND RESPONDED WELL TO PT. Treatment this episode: CREAM FROM DOCTOR FOR PAIN. Coughing/sneezing/straining: POSITIVE FOR INCREASED PAIN. Gait: NO AD'S BUT TIME AND DISTANCE LIMITED DUE TO PAIN. WALKING SLOWER THAN NORMAL WHEN IT STARTS TO HURT. Bowel or Bladder Dysfunction: NO Unexplained weight loss: NO Imagin05/27/23: IMPRESSION: Osteopenia with diffuse mild thoracic spondylosis. Anterior wedge compression deformity of T8, age not determined. No other abnormality. PMH: PMH: OSTEOPOROSIS, HTN, THYROID DZ, COPD, ASTHMA, DIVERTICULITIS, ULCERATIVE COLITIS. Recent major surgery: HIATIAL HERNIA SX FEB 12 AND 2017. 2010 THROAT BENIGN TUMOR. SKIN CANCER REMOVED. 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 Objective Objective: Sitting/Standing Posture: POOR. Lordosis: REDUCED. Active Correction of posture: WORSE. Other Observations: INDEP GAIT INTO PT WITHOUT AD BUT WITH DECREASED CADANCE AND MILD TRUNK FLEXION. INDEP SIT TO STAND WITHOUT UE ASSIST. Motor deficit: WAGNER LE'S 5/5 WITH MMT'ING EXCEPT HIPS GRADED 4-/5. Sensory deficit: NO. ROM deficit: MILD WAGNER LE HS AND MODERATE GASTROC SOLEUS COMPLEX TIGHTNESS. Dural Signs: NEGATIVE WAGNER LE'S. Lumbar mvmt loss: flex - MOD TO NICOLE - PROVOKES MILD TO MOD MID BACK PAIN ext - MOD - MILD C/O MID BACK PAIN R SG - MOD - C/O RIGHT HIP PAIN L SG - MIN - C/O MILD MID BACK PAIN. THORACIC MVMT LOSS: R ROT - MOD TO NICOLE - INCREASES MID BACK PAIN. L ROT - MOD TO NICOLE - INCREASES MID BACK PAIN THIS PT PROCEEDED CAREFULLY WITH ALL TESTING. PATIENT REPORTED MILD INCREASED PAIN AFTER TESTING. Core strength: POOR. Palpation: MID THORACIC TENDERNESS OTHER: PAIN AND GUARDING WITH TRANSFERS SUPINE TO SIT AND REVERSE. TREATMENT: NEUROMUSCULAR REEDUCATION - RETRAINING OF MVMT AND POSTURE FOR SITTING, LYING AND STANDING ACTIVITIES Balance/Special Test Scores Oswestry Low Back Score: 10 Goals Goal 1:: DECREASE C/O BACK PAIN BY AT LEAST 25% Goal Time Frame: 4-6 Weeks Goal 2:: IMPROVE LIFTING, WALKING, STANDING, SOCIAL LIFE, TRAVEL AND HOMEMAKING FUNCTION TO PLOF EVIDENCED BY IMPROVED OSWESTRY SCORE. Goal Time Frame: 4-6 Weeks Goal 3:: PATIENT WILL BE INDEP WITH HEP FOR CONTINUED IMRPOVEMENT ONCE FORMAL PHYSICAL THERAPY CONCLUDES. Goal Time Frame: 4-6 Weeks Anticipated Interventions Patient/Client Instruction: Educate patient on: Condition, Plan of Care and Risk Factors For the Purpose of:: To improve self management Therapeutic Exercise to Include: Strength training, Body mechanics, Postural training, Flexibilty training and Dynamic Lumbar Stabilization For the Purpose of:: To decrease pain, To improve muscle performance and motor function, To increase tolerance to activity/condition/position and To improve ability of physical actions for home/community/work/leisure Text: Thank you for the opportunity to evaluate your patient. For Medicare and Medicare HMO plans, please review the plan of care and approve it. It will need to be FAXED BACK to us at [phone] for Medicare purposes. For Medicare only, by signing this I certify the plan of care. Please let me know if there are questions or concerns regarding this plan of care. Physician Signature:____ Date:
--- NOTE | 2023-09-28 14:56 | HP.PTREVAL ---
Re-Evaluation Intro: Kiarra Monk, MARGOTH-C, It has been my pleasure to treat BARAK MEHTA over the last 1 visits for THORACIC SOMATIC DYSFUNCTION. Please see the progress note below for an update on the physical therapy plan of care! Subjective Subjective: PATIENT REPORTS THAT SHE REC'D AN DEMARIO IN HER LOW BACK FOR THE FIRST TIME FROM DR. HASTINGS 09/16/23 WITH GREAT BENEFIT AND IT EVEN HELPED HER MID BACK PAIN. KYPHOPLASTY 07/07/23 FOR T 8 AND READY TO RESUME PT NOW - SEE ORDERS DATED 09/07/23 AND 09/16/23. PATIENT REPORTS THE KYPHOPLASTY HELPED HER THORACIC PAIN TOO. CURRENTLY STILL HAVING MID BACK, LOW BACK, AND HIP PAIN RANGING 2/10 TO 9/10. WORSE WITH: WALKING, STANDING, BENDING, LIFTING, GETTING IN/OUT OF THE CAR, FOLDING LAUNDRY, DOING DISHES, DRYING OFF AFTER SHOWER, GOING UP AND DOWN STEPS. BETTER WITH: LYING DOWN, ICE, HEAT, SITTING, FREQUENT CHANGE OF POSITION, TYLONOL. Objective Objective/Function: PATIENT WAS SEEN TODAY FOR RE-ASSESSMENT DUE TO NEW ORDERS TO RESUME PT AFTER KYPHOPLASTY 07/07/23. UPON EXAM TODAY: Sitting/Standing Posture: POOR. Lordosis: REDUCED. Active Correction of posture: WORSE. Other Observations: INDEP GAIT INTO PT WITHOUT AD BUT WITH DECREASED CADANCE AND MILD TRUNK FLEXION. INDEP SIT TO STAND WITHOUT UE ASSIST. PAINFUL TRANSFERING FROM SIT TO SUPINE AND SUPINE TO SIT - NEEDING INSTRUCTION TO TRANSFER PROPERLY WITH PATIENT STATING SHE KNOWS HOW TO DO IT PROPERLY AND ISN'T SURE WHY SHE ATTEMPTED TO DO OTHERWISE. Motor deficit: WAGNER LE'S 5/5 WITH MMT'ING EXCEPT HIPS GRADED 4-/5. Sensory deficit: WAGNER LE LIGHT TOUCH SENSATION GROSSLY INTACT AND SYMMETRICAL. ROM deficit: MODERATE WAGNER LE HS AND GASTROC SOLEUS COMPLEX TIGHTNESS. Dural Signs: NEGATIVE WAGNER LE'S. Lumbar mvmt loss: flex - MOD TO NICOLE - PROVOKES MILD TO MOD MID BACK PAIN - NW ext - NICOLE - NE R SG - MOD - C/O MIL RIGHT FLANK AND HIP PAIN- NW. L SG - MIN - C/O MILD MID BACK PAIN AND L LATERAL LOWER LEG PAIN - NW. THORACIC MVMT LOSS: R ROT - MOD TO NICOLE - INCREASES MID BACK PAIN - NW L ROT - MOD - INCREASES MID BACK PAIN - NW THIS PT PROCEEDED CAREFULLY WITH ALL TESTING. Core strength: POOR. Palpation: PATIENT DENIES TENDERNESS WITH PALPATION OF THORACIC AND LUMBAR SPINE TODAY. OTHER: PAIN AND GUARDING WITH TRANSFERS SUPINE TO SIT AND REVERSE AND PROPER TRANSFER TRAINING NEEDED. PATIENT FREQUENTLY ALTERNATES BETWEEN SITTING AND STANDING DURING THE EVALUATION. PATIENT UNABLE TO TOLERATED SUPINE DURAL STRETCHING THEREFORE MODIFIED TO SITTING WITH GOOD TOLERANCE. PATIENT REPORTED FEELING NOW WORSE UPON DEPARTURE. Plan Plan Plan: *OSTEOPOROSIS* POSTURE CORRECTION/STRENGTHENING, INSTRUCTION IN APPROPRIATE BODY MECHANICS AND ACTIVITY MODIFICATIONS. DLS WITH A NEUTRAL SPINE TOLERATED. WAGNER LE ROM, STRETCHING AND STRENGTHENING. HEP INSTRUCTION. Balance/Gait/Functional tests Balance/Special Test Scores Oswestry Low Back Score: 14 Goals Goals Goal 1:: DECREASE C/O BACK PAIN BY AT LEAST 25% Goal Time Frame: 4-6 Weeks Goal 2:: IMPROVE LIFTING, WALKING, STANDING, SOCIAL LIFE, TRAVEL AND HOMEMAKING FUNCTION TO PLOF EVIDENCED BY IMPROVED OSWESTRY SCORE. Goal Time Frame: 4-6 Weeks Goal 3:: PATIENT WILL BE INDEP WITH HEP FOR CONTINUED IMRPOVEMENT ONCE FORMAL PHYSICAL THERAPY CONCLUDES. Goal Time Frame: 4-6 Weeks Anticipated Interventions Anticipated Interventions Patient/Client Instruction: Educate patient on: Condition, Plan of Care and Risk Factors For the Purpose of:: To improve self management Therapeutic Exercise to Include: Strength training, Body mechanics, Postural training, Flexibilty training and Dynamic Lumbar Stabilization For the Purpose of:: To decrease pain, To improve muscle performance and motor function, To increase tolerance to activity/condition/position and To improve ability of physical actions for home/community/work/leisure Re-Evaluation Ending Re-evaluation ending: Please do not hesitate to contact me at [phone] by phone or if you have questions or concerns regarding this new plan of care! Sincerely, Janet Heard, PT, Cert MDT
== END 2023-10-30 19:00 | disposition home or self-care (01) ==
LOC: PT 11:00
PROVIDERS: PCP Nurse Practitioner Family; Referring Provider Nurse Practitioner Family; Visit Provider Nurse Practitioner Family
DX: M99.02 Segmental and somatic dysfunction of thoracic region (principal)
CPT/HCPCS: 97112; 97162; 97164; 97530

== ENCOUNTER → 2024-04-11 | Outpatient (CLI) | payer MEDICARE, OTHER, SELFPAY ==
--- NOTE | 2024-04-11 11:10 | RAD_ITS ---
INDICATION: Pain radiating from back of pelvis surrounds through the front of both hips. No known injury. Has a high pain tolerance. EXAMINATION/TECHNIQUE: X-RAY - XR Hips Bilateral with Pelvis when performed; Min 5 Views COMPARISON: No relevant prior comparison study available FINDINGS: PELVIC BONES: No displaced fracture, destructive or sclerotic lesions. Note that overlapping bowel shadows may however obscure fine detail. Sacroiliac joints are unremarkable. No widening of the pubic symphysis. HIPS: There is minimal degenerative arthrosis of the hip joints bilaterally, with minimal osteoarthritic spurring of the acetabula bilaterally. No displaced fracture. SOFT TISSUES: No soft tissue swelling or gas. RAD/Hips B/L min 2 views w/ Pelvis IMPRESSION: Minimal degenerative arthrosis of the hip joints bilaterally. No evidence of displaced pelvic or hip fracture. Electronically Signed: Mumtaz Moeller MD at 11:29 EDT ,
== END | disposition home or self-care (01) ==
PROVIDERS: PCP Nurse Practitioner Family; Referring Provider Anesthesiology Pain Medicine; Visit Provider Anesthesiology Pain Medicine
DX: M16.0 Bilateral primary osteoarthritis of hip (principal)
CPT/HCPCS: 73521

== ENCOUNTER → 2024-04-28 | Outpatient (CLI) | payer MEDICARE, OTHER, SELFPAY ==
--- NOTE | 2024-04-28 13:52 | CT_ITS ---
STUDY: LOW DOSE CT LUNG CANCER SCREENING REASON FOR EXAM: Female, 63 years old. HX NICOTINE DEPENDENCE. Current smoker. Patient smoked one half packs of cigarettes per day for 47 years. RADIATION DOSAGE (If Supplied By Facility): CTDIvol = ( 2.39 ) mGy, DLP = ( 72.36 ) mGycm TECHNIQUE: No contrast was administered. Low dose technique was utilized (average mAS-38 and kVp 120). 1.25 mm axial source images with a slice interval of 1.25-mm were reconstructed in lung windows. 2.5 mm axial source images with a slice interval of 2.5-mm were reconstructed in lung windows. 5.0 mm axial source images with a slice interval of 5.0-mm were reconstructed in soft tissue windows. COMPARISON: None. NODULES: No suspicious nodular densities are seen. Emphysema: Hyperinflation. Emphysematous changes. Minimal increased markings in the peripheral aspect of the right upper lobe abutting the right minor fissure suggestive of scarring. Mild scarring at the right lung base. Endobronchial lesion: None Aorta: Atherosclerotic plaque formation. CORONARY ARTERIES: Coronary artery calcification is seen. Heart: Unremarkable Pulmonary artery: Unremarkable Mediastinal nodes: Small mediastinal lymph nodes. Other chest and abdominal findings: Prior vertebral plasty of a mid dorsal vertebra with loss of height. CT/Low Dose CT Lung Screening IMPRESSION: Lung-RADS category 2 - Continue annual screening with LDCT in 12 months. IMPORTANT NOTES FOR USE: ACR Lung-RADS Version 1.1 Assessment Categories Release Date: 2018 Category: Coded 0-4 bases on nodule(s) with highest degree of suspicion. Negative screen is defined as categories 1 and 2; a positive screen is defined as categories 3 and 4. Category 3 and 4A nodules that are unchanged on interval CT should be coded as category 2, and individuals returned to screening in 12 months. Category 4X: Category 3 or 4 nodules with additional imaging findings that increase the suspicion of lung cancer, such as spiculation, GGN that doubles in size in 1 year, enlarged lymph notes, etc. Category Modifiers: S (significant finding unrelated to lung cancer) Electronically Signed: Jax Allen MD at 8:23 EDT ,
--- NOTE | 2024-04-28 14:52 | BD_ITS ---
STUDY: DUAL ENERGY X-RAY ABSORPTIOMETRY / DXA REASON FOR EXAM: Female, 64 years old. Z780 -- postmenopausal status TECHNIQUE: Bone Mineral Density (BMD) measurements of lumbar spine and bilateral hips were obtained. COMPARISON: Comparison is made with prior study April 22, 2022. FINDINGS: Lumbar Spine (L1-L4): g/cm2 (0.766) / T-score (-2.5) / Z-score (-0.7) Findings are suggestive of osteopenia with a high fracture risk. Left Femur Total: g/cm2 (0.805) / T-score (-1.1) / Z-score (0.1) Left Femoral Neck: g/cm2 (0.586) / T-score (-2.4) / Z-score (-0.9) Right Femur Total: g/cm2 (0.786) / T-score (-1.3) / Z-score (-0.1) Right Femoral Neck: g/cm2 (0.574) / T-score (-2.5) / Z-score (-1.0) The T-Scores on the most recent prior examination were: Lumbar Spine (L1-L4): There has been worsening of bone density since the previous examination. Left Femur Total: which represents a worsening of 2.2%. Right Femur Total: which represents a worsening of 1.1%. BD/Dexa Bone Density Study IMPRESSION: The patient is considered osteopenic as outlined below according to World Mehdi Organization (WHO) criteria with a high fracture risk. There has been worsening of bone density since the previous examination. Reference Information: The T-score is the number of standard deviations above or below the standard which is normal for young adults at their peak bone mineral density. The World Health Organization (WHO) interprets the T-scores as follows: Above -1 Normal bone density Between -1 and -2.5 Osteopenia Equal to / or below -2.5 Osteoporosis As a practical clinical guideline, osteopenia may be graded as follows: Mild -1 through -1.5 Moderate -1.6 through -2.0 Severe -2.1 through -2.4 The Z-score is the number of standard deviations above or below age-matched controls. A Z-score of less than -1.5 would be considered abnormal. References: 1. NIH Osteoporosis and Related Bone Diseases www osteo.org 2. International Society for Clinical Densitometry www iscd.org 3. National Osteoporosis Foundation www nof.org Electronically Signed: Jax Allen MD at 15:32 EDT ,
== END | disposition home or self-care (01) ==
LOC: CT 13:51
PROVIDERS: PCP Nurse Practitioner Family; Referring Provider Internal Medicine Pulmonary Disease; Visit Provider Internal Medicine Pulmonary Disease
DX: Z78.0 Asymptomatic menopausal state (principal); Z87.891 Personal history of nicotine dependence
CPT/HCPCS: 71271; 77080

== ENCOUNTER → 2024-11-09 | Outpatient (CLI) | payer MEDICARE, OTHER, SELFPAY ==
--- NOTE | 2024-11-09 13:56 | CDU_ITS ---
Reason For Study Reason For Study: S/P Lt ICA CEA Rt. Velocities/BP Lt. Velocities/BP Prox CCA 49.4/10.1 cm/sec. Prox CCA 85.3/16.0 cm/sec. Mid CCA 41.5/12.7 cm/sec. Mid CCA 61.0/19.5 cm/sec. Dist CCA 46.8/14.5 cm/sec. Dist CCA 68.6/21.4 cm/sec. Prox ICA 49.9/17.2 cm/sec. Prox ICA 64.8/17.6 cm/sec. Mid ICA 61.4/21.2 cm/sec. Mid ICA 84.2/25.3 cm/sec. Dist ICA 96.1/32.1 cm/sec. Dist ICA 71.7/30.5 cm/sec. Rt. ICA/CCA = 2.3. Lt. ICA/CCA = 1.4. Prox ECA 111.2/19.2 cm/sec. Prox ECA 196.7/34.2 cm/sec. Rt. Vert. 24.1/7.5 cm/sec. Lt. Vert. 36.3/10.1 cm/sec. Right Extracranial There is heterogeneous, irregular atherosclerotic plaque noted in the right common carotid artery. There is heterogeneous, irregular atherosclerotic plaque noted in the right internal carotid artery. There is heterogeneous, irregular atherosclerotic plaque noted in the right external carotid artery. Antegrade flow is noted in the right vertebral artery. Left Extracranial There is heterogeneous, irregular atherosclerotic plaque noted in the left common carotid artery. There is heterogeneous, irregular atherosclerotic plaque noted in the left internal carotid artery. HX ICA CEA. There is heterogeneous, irregular atherosclerotic plaque noted in the left external carotid artery. Antegrade flow is noted in the left vertebral artery. Procedure Carotid Duplex 12209. This is a Carotid Duplex examination using B-mode, color flow and specral Doppler. The exam was diagnostic. Exam performed in department. VL/Carotid Duplex Ultrasound Interpretation Summary Mild (<50%) stenosis right extracranial internal carotid. Mild (<50%) stenosis left extracranial internal carotid. Patent and antegrade vertebrals bilaterally. Ordering Physician: Shannan Garvin Referring Physician: Kiarra Monk Performed By: Jaswinder Daly RVT
== END | disposition home or self-care (01) ==
LOC: CVS 13:55
PROVIDERS: PCP Nurse Practitioner Family; Referring Provider Physician Assistant; Visit Provider Physician Assistant
DX: Z48.812 Encounter for surgical aftercare following surgery on the circulatory system (principal); Z98.890 Other specified postprocedural states
CPT/HCPCS: 93880

== ENCOUNTER → 2024-12-19 | Outpatient (CLI) | payer MEDICARE, OTHER, SELFPAY ==
--- NOTE | 2024-12-19 14:20 | RAD_ITS ---
PROCEDURE: THORACIC SPINE 2 VIEWS 12/19/2024 REASON FOR EXAM: OTHER SPONDYLOSIS WITH MYELOPATHY, THORACIC REGION TECHNIQUE: THORACIC SPINE 2 VIEWS COMPARISON: 05/27/2023. FINDINGS: S-shaped degenerative scoliosis. Unchanged osteopenia. Vertebroplasty at the level of T8 vertebral body. Unchanged degree of compression and T8 vertebral body. Interval appearance of mild compression deformities of T10 and T11 vertebral bodies of indeterminate age. There are diffuse spondylotic changes. Findings are demonstrated to by diffuse disc space narrowing, osteophyte formation and degenerative endplate sclerosis. There is diffuse facet joint arthropathy with secondary bilateral neural foramina narrowing. No dislocation is seen. No aggressive lytic or blastic bony lesion is noted. RAD/Thoracic Spine 2 Views IMPRESSION: S-shaped degenerative scoliosis. Unchanged osteopenia. Vertebroplasty at the level of T8 vertebral body. Unchanged degree of compression and T8 vertebral body. Interval appearance of mild compression deformities of T10 and T11 vertebral edmond dies of indeterminate age. Reading Location: [facility]
== END | disposition home or self-care (01) ==
PROVIDERS: PCP Nurse Practitioner Family; Referring Provider Anesthesiology Pain Medicine; Visit Provider Anesthesiology Pain Medicine
DX: M47.16 Other spondylosis with myelopathy, lumbar region (principal)
CPT/HCPCS: 72070

== ENCOUNTER → 2025-04-14 | Outpatient (CLI) | payer MEDICARE, OTHER, SELFPAY ==
--- NOTE | 2025-04-14 15:05 | BI_ITS ---
EXAM: SCRN MAMM (CAD)W/DAVION BILAT DATE: 04/14/2025 CLINICAL HISTORY: F, Age 64 y/o , SCREENING FOR BREAST CANCER TECHNIQUE: Procedure Code: [id number] Modality: MG Procedure: SCRN MAMM (CAD)W/DAVION BILAT COMPARISON: Prior exam(s) dated 09/29/2023 and 04/22/2022. FINDINGS: TISSUE DENSITY: There are scattered areas of fibroglandular density. Bilateral Breast Mammographic Findings: No significant masses, calcifications or other abnormalities are identified. There are 2 stable benign-appearing well-circumscribed isodense masses in the superior outer aspect of the right breast each measuring approximately 4 mm. These appear to have fatty hilum on the davion images and are most compatible with intramammary lymph nodes. BI/SCRN MAMM (CAD)W/DAVION BILAT IMPRESSION: Benign screening mammogram OVERALL FINAL ASSESSMENT BI-RADS 2: BENIGN RECOMMENDATION: Routine annual follow-up in 1 Year Additional Recommendation none A letter with findings and recommendations will be mailed to the patient. Reading Location: [id number]
--- NOTE | 2025-04-14 15:05 | BI_ITS ---
EXAM: SCRN MAMM (CAD)W/DAVION BILAT DATE: 04/14/2025 CLINICAL HISTORY: F, Age 64 y/o , SCREENING FOR BREAST CANCER TECHNIQUE: Procedure Code: [id number] Modality: MG Procedure: SCRN MAMM (CAD)W/DAVION BILAT COMPARISON: Prior exam(s) dated 09/29/2023 and 04/22/2022. FINDINGS: TISSUE DENSITY: There are scattered areas of fibroglandular density. Bilateral Breast Mammographic Findings: No significant masses, calcifications or other abnormalities are identified. There are 2 stable benign-appearing well-circumscribed isodense masses in the superior outer aspect of the right breast each measuring approximately 4 mm. These appear to have fatty hilum on the davion images and are most compatible with intramammary lymph nodes. BI/SCRN MAMM (CAD)W/DAVION BILAT IMPRESSION: Benign screening mammogram OVERALL FINAL ASSESSMENT BI-RADS 2: BENIGN RECOMMENDATION: Routine annual follow-up in 1 Year Additional Recommendation none A letter with findings and recommendations will be mailed to the patient. Reading Location: [id number]
== END | disposition home or self-care (01) ==
LOC: OPBI 15:05
PROVIDERS: PCP Nurse Practitioner Family; Referring Provider Nurse Practitioner Family; Visit Provider Nurse Practitioner Family
DX: Z12.31 Encounter for screening mammogram for malignant neoplasm of breast (principal)
CPT/HCPCS: 77063; 77067

== ENCOUNTER → 2025-04-29 | Outpatient (CLI) | payer MEDICARE, OTHER, SELFPAY ==
--- NOTE | 2025-04-29 10:01 | CT_ITS ---
PROCEDURE: LOW DOSE CT LUNG SCREENING 04/29/2025 REASON FOR EXAM: CURRENT, EVERY DAY SMOKER TECHNIQUE: Procedure Code: [id number] Modality: CT Procedure: LOW DOSE CT LUNG SCREENING Coronal and Sagittal reconstruction series were provided. One or more dose reduction techniques were used (e.g., Automated exposure control, adjustment of the mA and/or kV according to patient size, use of iterative reconstruction technique). REFERENCE LINK: [employer] Lung-RADS RADIATION DOSE SUMMARY: CTDlvol: 3.02 mGy DLP: 99.68 mGycm COMPARISON: CT low-dose lung screen, 04/28/2024. FINDINGS: PULMONARY NODULES: (Only nodules >3mm are reported) Lower neck:The thyroid gland is grossly unremarkable. There is no supraclavicular lymphadenopathy. Mediastinum:There are few non pathologically enlarged mediastinal lymph nodes. Heart and Aorta:The heart size is normal. There is no pericardial effusion. There is moderate calcific vascular disease of the coronary arteries and thoracic aorta. Esophagus:There is a moderate hiatal hernia. Upper Abdomen:There are surgical clips in the epigastrium consistent with anti reflux surgery. The liver has a lobulated margin suggestive of cirrhosis. There is calcific vascular disease of the visualized abdominal aorta. Chest wall:The visualized soft tissues of the chest wall are unremarkable. There is no axillary lymphadenopathy. There is osteoporosis of the visualized spine. There is moderate wedge compression of T8 status post vertebroplasty. There is mild compression of the superior endplates of T10 and T11. There is mild levoscoliosis of the thoracic spine. Lungs, airways and pleura: There is moderate upper lobe predominant centrilobular emphysema. There is linear scarring or atelectasis in the middle lobe of the right lung, the inferior segment of the lingula in the posterior and lateral basal segments of the lower lobe of the right lung. There is improved aeration of the middle lobe of the right lung. There are no pulmonary nodules or masses. There are no pleural effusions. CT/Low Dose CT Lung Screening IMPRESSION: 1. Emphysema. 2. Interval improved aeration of the middle lobe of the right lung. There is multifocal linear scarring or atelectasis in both lung bases as described. 3. There are no pulmonary nodules. 4. There is calcific vascular disease. 5. There is a moderate hiatal hernia. 6. Osteoporosis with multiple wedge compression fractures as described. 7. Other findings as noted. Lung-RADS Category: 1 S: Negative. Emphysema. Calcific vascular disease. Recommendation: Follow up low-dose chest CT in 12 months. Reading Location: [id number]
== END | disposition home or self-care (01) ==
LOC: CT 09:56
PROVIDERS: PCP Nurse Practitioner Family; Referring Provider Nurse Practitioner Family; Visit Provider Nurse Practitioner Family
DX: Z87.891 Personal history of nicotine dependence (principal)
CPT/HCPCS: 71271

== ENCOUNTER → 2025-05-25 | Outpatient (CLI) | payer MEDICARE, OTHER, SELFPAY ==
[2025-05-25 14:41] LABS: Hematocrit 31.0 % (37-47); Hemoglobin 10.4 g/dL (12.0-15.0); Immature Granulocytes Count 0.020 X10^3/uL (0.0-0.0); Mean Corp Hgb Conc 33.5 g/dL (32-36); Mean Corpuscular Volume 89.6 fL (81-99); Mean Platelet Vol. 8.6 fl (6.2-12.0); NRBC Flagged by Analyzer 0 % (0-5); Platelet Count 292 K/mm3 (150-450); RBC Distribution Width CV 14.8 % (11.6-14.6); RBC Distribution Width SD 48.2 fl (35.1-43.9); Red Blood Count 3.46 M/mm3 (4.2-5.4); White Blood Count 5.0 K/mm3 (4.4-11.0)
[2025-05-25 15:29] LABS: AST(SGOT) 21 U/L (<=31); Alanine Aminotransfer ALT/SGPT 16 U/L (<=34); Albumin, Serum 4.2 g/dL (3.4-4.8); Alkaline Phosphatase 137 U/L (35-104); Anion Gap 9 (5-15); BUN 7 mg/dL (4-19); BUN/Creat Ratio 8.9 RATIO (10-20); Calcium,Total 10.1 mg/dL (7.6-11.0); Carbon Dioxide 27.1 mmol/L (21.0-32.0); Chloride 101 mmol/L (98-108); Cholesterol 133 mg/dL (<=200); Globulin 2.8 g/dL (2.2-4.2); Glucose 124 mg/dL (70-99); Low Density Lipoprotein Calc. 54 mg/dL; Potassium 4.3 mmol/L (3.3-5.1); Triglycerides 68 mg/dL; Very Low Density Lipoprotein 14 mg/dL (5-40); Vitamin B12 1777 pg/mL (180-914); cholesterol:hdl ratio screen 2.04
== END | disposition home or self-care (01) ==
PROVIDERS: PCP Nurse Practitioner Family; Referring Provider Nurse Practitioner Family; Visit Provider Nurse Practitioner Family
DX: E03.9 Hypothyroidism, unspecified (principal); D64.9 Anemia, unspecified; I10 Essential (primary) hypertension; E78.5 Hyperlipidemia, unspecified; E53.8 Deficiency of other specified B group vitamins; R39.9 Unspecified symptoms and signs involving the genitourinary system
CPT/HCPCS: 36415; 80053; 80061; 82607; 84443; 85025

== ENCOUNTER → 2025-05-26 | Outpatient (CLI) | payer MEDICARE, OTHER, SELFPAY ==
[2025-05-26 14:26] LABS: Mucous, Urine 0 SEEN /hpf (<or=2+); Red Blood Cells-Urine 0 SEEN /hpf (0-5)
[2025-05-26 22:57] LABS: Color, Urine Straw (Yellow); Glucose, Dipstick Normal (Normal); Ketone-Dipstick Negative (Negative); Leukocyte Esterase-Dipstick Negative /ul (Negative); Nitrite-Dipstick Negative (Negative); Occult Blood-Urine Negative /ul (Negative); Protein-Dipstick Negative (Negative); Specific Gravity, Urine 1.010 (1.002-1.030); Urine Bilirubin Dipstick Negative (Negative)
[2025-05-27 00:53] LABS: Squamous Epithelial Cells - UA 0-5 SEEN /hpf (5-10)
== END | disposition home or self-care (01) ==
LOC: LABSPEC 14:22
PROVIDERS: PCP Nurse Practitioner Family; Referring Provider Nurse Practitioner Family; Visit Provider Nurse Practitioner Family
DX: R39.9 Unspecified symptoms and signs involving the genitourinary system (principal)
CPT/HCPCS: 81001; 87086; 87088